=== PATIENT | female | born 1955 | race Caucasian/White ===

== ENCOUNTER → 2020-10-04 11:22 | Outpatient (BNVA) | payer OTHER, SELFPAY | PROVIDERS: PCP Internal Medicine; Visit Provider Nurse Practitioner | DX: K22.70 Barrett's esophagus without dysplasia (principal); K21.00 Gastro-esophageal reflux disease with esophagitis, without bleeding; Z80.0 Family history of malignant neoplasm of digestive organs; Z79.899 Other long term (current) drug therapy | CPT/HCPCS: Q3014 ==

== ENCOUNTER 2020-10-06 07:45 | Outpatient (REF) | payer OTHER, SELFPAY ==
[2020-10-06 11:20] LABS: Hematocrit 37.4 % (37-47); Hemoglobin 11.5 g/dl (12.0-16.0); Mean Corpuscular HGB Conc 30.7 g/dl (31.0-35.0); Mean Corpuscular Hemoglobin 27.6 pg (27.0-33.0); Mean Corpuscular Volume 89.7 fL (80-98); Mean Platelet Volume 10.4 fL (9.4-12.3); Platelet Count 273 X10*3/uL (160-400); Red Blood Count 4.17 X10*6/uL (4.20-5.50); Red Cell Distribution Width 12.8 % (11.0-16.0)
[2020-10-06 11:33] LABS: Glucose Urine UA NEG (NEG); Leukocyte Esterase Urine NEG (NEG); Nitrite Urine NEG (NEG); PH 7.5 (5.0-8.0); Specific Gravity - Urine 1.015 (1.005-1.025); Urine Blood NEG (NEG); Urine Ketones NEG (NEG); Urine Protein NEG (NEG-TRACE)
[2020-10-06 11:41] LABS: Appearance Urine CLEAR; Color Urine YELLOW
[2020-10-06 11:57] LABS: Alanine Aminotransferase 15 U/L (0-31); Albumin Level 4.3 g/dL (3.5-5.0); Alkaline Phosphatase 88 U/L (39-117); Anion Gap 14 (12-20); Aspartate Amino Transferase 14 U/L (5-31); Bilirubin Total 0.2 mg/dL (0.0-1.0); Blood Urea Nitrogen 16 mg/dL (9-16); Calcium 8.8 mg/dL (8.4-10.2); Carbon Dioxide 28 mmol/L (22-29); Chloride 105 mmol/L (96-108); Cholesterol 187 mg/dL; Estimated Glomerular Filt Rate > 60; Glucose Fasting 83 mg/dL (60-99); HDL Cholesterol 69 mg/dL; LDL Cholesterol Calculated 104 mg/dl; Potassium 3.9 mmol/L (3.3-5.1); Sodium 143 mmol/L (135-145); Total Protein 6.6 g/dL (6.5-8.0); Triglycerides 70 mg/dL
== END 2020-10-06 07:46 | disposition home or self-care (01) ==
LOC: HO.HMGCLDS 07:45
PROVIDERS: PCP Internal Medicine; Visit Provider Internal Medicine
DX: E78.5 Hyperlipidemia, unspecified (principal); I10 Essential (primary) hypertension; K22.70 Barrett's esophagus without dysplasia
CPT/HCPCS: 36415; 80053; 80061; 81003; 84443; 85027

== ENCOUNTER → 2021-04-24 09:18 | Outpatient (BNVA) | payer OTHER, SELFPAY | PROVIDERS: PCP Internal Medicine; Visit Provider Nurse Practitioner ==

== ENCOUNTER 2021-05-22 08:24 | Day surgery (SDC) | payer OTHER, SELFPAY ==
[2021-05-17 15:44] VITALS: BMI 28.3
--- NOTE | 2021-05-21 12:26 | HO.ANESPROP2 ---
Documented by User: Anna Bowers NP 05/28/21 14:35 HPI - Anesthesia Eval Consult details Narrative: 65yo F for Upper Endoscopy PMFSH Active Problems Active Problems: All Active Problems (Updated 05/17/21 @ 15:42 by Leslie Cr, RN) Family history of colon cancer in father (Acute) GERD with esophagitis (Acute) Bleeding hemorrhoids (Acute) Annual physical exam (Acute) Hyperlipidemia (Acute) Lung nodule, multiple (Acute) Reich's esophagus (Acute) HTN (hypertension) (Acute) Past Medical History Medical History Annual physical exam Anxiety Reich's esophagus Constipation Depression Hemorrhoids Hiatal hernia HTN (hypertension) Hyperlipidemia Lung nodule, multiple Family History Family History Father Colon cancer Mother Colon cancer Surgical History Surgical History H/O colonoscopy History of esophagogastroduodenoscopy (EGD) Social History Social History (Updated 05/17/21 @ 15:42 by Leslie Cr, RN) Housing: House Alcohol intake: never Patient Tobacco Use Status: Former Tobacco user Quit Date: 2015 e-Cigarette/Vaping Use: Never Used Current occupational status: employed Meds Allergies Allergy/AdvReac Type Severity Reaction Status Date / Time No Known Allergies Allergy Verified 05/22/21 08:51 [No Known Allergies*] Home Medications Medication Instructions Recorded Confirmed Last Taken Type olmesartan 5 mg tablet 5 mg PO BEDTIME 05/17/21 05/17/21 Unknown History pravastatin 80 mg tablet 80 mg PO BEDTIME 05/17/21 05/17/21 Unknown History Exam Exam Date and Time: May 21, 2021 1226 Height,Weight and Vital Signs: Height 4 ft 11 in Weight 63.503 kg Assessment and Plan Assessment Anesthesia Assessment: Chart Reviewed Documented by User: Silvia Smart MD 05/22/21 08:31 [facility] Past Medical History Medical History Annual physical exam Anxiety Recih's esophagus Constipation Depression Hemorrhoids Hiatal hernia HTN (hypertension) Hyperlipidemia Lung nodule, multiple Functional capacity: independent ambulation Patient : No Family History Family History Father Colon cancer Mother Colon cancer Surgical History Surgical History H/O colonoscopy History of esophagogastroduodenoscopy (EGD) Social History Social History (Updated 05/17/21 @ 15:42 by Leslie Cr, POOJA) Housing: House Alcohol intake: never Patient Tobacco Use Status: Former Tobacco user Quit Date: 2015 e-Cigarette/Vaping Use: Never Used Current occupational status: employed Meds Allergies Allergy/AdvReac Type Severity Reaction Status Date / Time No Known Allergies Allergy Verified 05/22/21 08:51 [No Known Allergies*] Home Medications Medication Instructions Recorded Confirmed Last Taken Type olmesartan 5 mg tablet 5 mg PO BEDTIME 05/17/21 05/17/21 Unknown History pravastatin 80 mg tablet 80 mg PO BEDTIME 05/17/21 05/17/21 Unknown History
[2021-05-22 08:52] VITALS: BP 136/63; PULSE 59; RESP 18; TEMP 36.5; O2SAT 98
[2021-05-22] MEDS: Lactated Ringers 1,000 ML 100 ML IVCONT (09:03)
--- NOTE | 2021-05-22 09:42 | MHC.SHP ---
Pre-Procedural Eval Section A Date of Service: 05/22/21 Section B Chief Complaint: Reich's esophagus Details of Present Illness: fh of cRC Relevant Family History (Specify if Yes): Yes Relevant Social History: None (ex smoker) Present Medications: see Short Stay Collaborative assessment Medical History: Significant History (Anxiety Reich's esophagus Constipation Depression Hemorrhoids Hiatal hernia HTN (hypertension) Hyperlipidemia Lung nodule, multiple) History of Previous Operations: Relevant previous surgery/procedure and date(s) (H/O colonoscopy History of esophagogastroduodenoscopy (EGD)) Allergies: Allergies Allergy/AdvReac Type Severity Reaction Status Date / Time No Known Allergies Allergy Verified 05/22/21 08:51 [No Known Allergies*] Review of Systems Sugical H&P ROS: Negative: Constitution, Cardiovascular, Respiratory, Neurological, Psychiatric, Hem-Onc, Allergic/Immunologic, Gastrointestinal, Genitourinary, Musculoskeletal, Integumentary, Endocrine and Eyes/Ears/Nose/Throat Exam Surgical H&P Exam: Normal: HEENT, Normal: Heart, Normal: Lungs, Normal: Extremities, Normal: Abdomen, Normal: Skin and Normal: Neurological Plan Diagnosis/Plan: Unchanged I have reviewed the history and physical and performed a pertinent physical examination on my patient. No changes have occurred unless specified.
--- NOTE | 2021-05-22 09:44 | P.BOP_ITS ---
Brief Operative Note Date of Service: 05/22/21 Pre-op diagnosis: hx of barretts Post-op diagnosis: same Procedure: see op note Surgeon: Antonio Graff MD Anesthesia: MAC Was an Claims Administrator used for this Procedure?: No Estimated blood loss (mL): 0 Condition: stable Disposition: PACU
--- NOTE | 2021-05-22 09:45 | W.PM.OPN ---
Operative Note Operative Note Date of Service: 05/22/21 Narrative: Procedure Description: EGD FLEXIBLE TRANSORAL UPPER GASTROINTESTINAL ENDOSCOPY UPPER ENDOSCOPY Consent: Indications for the procedure and potential complications of bleeding, perforation, reaction to medications and missed diagnosis were discussed with the patient and informed consent was obtained. Instrument: Olympus GIF H 190 J mid size upper endoscope Monitoring: Vital signs and clinical assessment, continuous EKG monitoring, Pulse oximetry, Carbon Dioxide monitoring and blood pressure monitoring were done throughout the procedure. Procedure: The patient was placed in the left lateral decubitis position and pre-procedure medications were administered and a bite block was placed. The endoscope was inserted into the mouth and advanced under direct vision to the third part of duodenum. A careful inspection was made as the upper endoscope was withdrawn including a retroflexed examination of the proximal stomach; Findings and interventions are described below. Findings: Larynx:normal Esophagus: GE junction at 36 cm, diaphragm hiatus at 36 cm, irregular Z line with few islands of salmon pink tissue, bx taken and WATS brushings taken Stomach: Several fundic gland polyps seen. Grade 2 flap valve on retroflexed examination of the cardia. Duodenum: Normal bulb and descending duodenum, Intervention: Biopsies as noted above, brushings Impression/Findings: fundic gland polyps suspected barretts esophagus, short segment PLAN: await results f/u EGD length will depend on results of brushings and bx--if barretts without dysplasia then 3-5 yrs, if normal tissue and no barretts seen on WATS then may not need further EGD
--- NOTE | 2021-05-22 10:18 | HO.ANESPROP2 ---
[facility] Active Problems Active Problems: All Active Problems (Updated 05/17/21 @ 15:42 by Leslie Cr, RN) Family history of colon cancer in father (Acute) GERD with esophagitis (Acute) Bleeding hemorrhoids (Acute) Annual physical exam (Acute) Hyperlipidemia (Acute) Lung nodule, multiple (Acute) Reich's esophagus (Acute) HTN (hypertension) (Acute) Past Medical History Medical History Annual physical exam Anxiety Reich's esophagus Constipation Depression Hemorrhoids Hiatal hernia HTN (hypertension) Hyperlipidemia Lung nodule, multiple Functional capacity: independent ambulation Family History Family History Father Colon cancer Mother Colon cancer Family history of problems with anesthesia: No Surgical History Surgical History H/O colonoscopy History of esophagogastroduodenoscopy (EGD) History of Problems with Anesthesia: No Social History Social History (Updated 05/17/21 @ 15:42 by Leslie Cr, POOJA) Housing: House Alcohol intake: never Patient Tobacco Use Status: Former Tobacco user Quit Date: 2015 e-Cigarette/Vaping Use: Never Used Are you DNR?: No Advance Directives: No Advance Directives Information Provided: Yes Advance Directives on File: No Patient : No Current occupational status: employed Meds Allergies Allergy/AdvReac Type Severity Reaction Status Date / Time No Known Allergies Allergy Verified 05/22/21 08:51 [No Known Allergies*] Active Medications: Current Medications Lactated Ringer's (Lr) 1,000 mls @ 100 mls/hr IVCONT .Q10H CAROLYN Last Admin: 05/22/21 09:03 Dose: 100 mls/hr Documented by: Home Medications Medication Instructions Recorded Confirmed Last Taken Type olmesartan 5 mg tablet 5 mg PO BEDTIME 05/17/21 05/17/21 Unknown History pravastatin 80 mg tablet 80 mg PO BEDTIME 05/17/21 05/17/21 Unknown History Exam Exam Date and Time: May 22, 2021 1018 Height,Weight and Vital Signs: Height 4 ft 11 in Weight 63.503 kg Last Vital Signs Temp 97.7 F 05/22/21 08:52 Pulse 59 05/22/21 08:52 Resp 18 05/22/21 08:52 BP 136/63 05/22/21 08:52 Pulse Ox 98 05/22/21 08:52 Airway Heart: RRR Lungs: CTA Assessment and Plan Assessment Anesthesia Assessment: Anesthesia Plan Discussed Final Anesthetic Review Family History of Problems with Anesthesia: No History of Problems with Anesthesia: No NPO: Yes ASA Class: II Final Preanesthetic Review: No Changes in Pt Med Stat Patient Risk: Low Procedure Risk: Low Anesthetic Plan Anesthetic Plan: GA and Neuraxial Block: Disposition: Standard PACU
[2021-05-22 10:19] VITALS: BP 121/51; PULSE 68; RESP 16; TEMP 36.4; O2SAT 100
[2021-05-22 10:34] VITALS: BP 125/65; PULSE 61; RESP 16; TEMP 36.4; O2SAT 98
--- NOTE | 2021-05-22 14:43 | HO.POSTANES ---
Post Anesthesia Evaluation Post Anesthesia Evaluation Vital Signs: Vital Signs Temp Pulse Resp BP Pulse Ox 05/22/21 10:34 97.5 F 61 16 125/65 98 05/22/21 10:19 97.5 F 68 16 121/51 L 100 05/22/21 08:52 97.7 F 59 18 136/63 98 Anesthesia: Monitored Mental Status: Awake Pain Control: Satisfactory Nausea/Vomiting: None Hydration: Adequate
== END 2021-05-22 11:31 | disposition home or self-care (01) ==
PROVIDERS: PCP Internal Medicine; Visit Provider Internal Medicine Gastroenterology
PROC: 0DJ08ZZ Inspection of Upper Intestinal Tract, Via Natural or Artificial Opening Endoscopic (ICD-10-PCS; CPT 43235; principal; 2021-05-22 09:40)
DX: K22.70 Barrett's esophagus without dysplasia (principal); K31.7 Polyp of stomach and duodenum; K21.00 Gastro-esophageal reflux disease with esophagitis, without bleeding; K44.9 Diaphragmatic hernia without obstruction or gangrene; I10 Essential (primary) hypertension; E78.5 Hyperlipidemia, unspecified; R91.8 Other nonspecific abnormal finding of lung field; F32.9 Major depressive disorder, single episode, unspecified; Z80.0 Family history of malignant neoplasm of digestive organs; Z79.899 Other long term (current) drug therapy; Z87.891 Personal history of nicotine dependence
CPT/HCPCS: 43239; 88305

== ENCOUNTER → 2021-06-15 15:48 | Outpatient (BNVA) | payer OTHER, SELFPAY | PROVIDERS: PCP Internal Medicine; Referring Provider Internal Medicine; Visit Provider Nurse Practitioner ==

== ENCOUNTER 2021-09-04 07:18 | Outpatient (REF) | payer OTHER, SELFPAY ==
--- NOTE | ~2021-09-04 | CT_ITS ---
EXAMINATION: CT CHEST SCREENING CLINICAL INFORMATION: Former smoker. Unknown smoking pack year history COMPARISON: Previous chest CT February 2020 TECHNIQUE: Multidetector volumetric CT imaging of the chest is performed without contrast using low dose technique. Additional 2D coronal and sagittal reformatted images and axial 3D maximum intensity projection (MIP) images are generated on the CT workstation. This CT examination was performed using dose optimization techniques as appropriate, variously including the following: *Automated exposure control *Adjustment of mA and/or kV according to patient size (this includes techniques or standardized protocols for targeted exams where dose is matched to indication/reason for exam; i.e. extremities or head) *Use of iterative reconstruction technique DLP: 31 mGy-cm FINDINGS: LUNGS: There is mild biapical pleural and parenchymal scarring that is stable. The small pulmonary nodules are stable. Largest pulmonary nodule are 3 mm peripheral left upper lobe nodules axial image 85 series 5 and 105 series 5. There is chronic lateral peripheral or subpleural scarring or subsegmental atelectasis in the right middle and right lower lobes axial image 242 and 266 series 5 that is stable. MEDIASTINUM: There is mild coronary artery calcification and calcification of the thoracic aorta. The mediastinum is otherwise normal. PLEURA: There is no pleural effusion. No pleural mass or thickening. AXILLA: No lymphadenopathy. UPPER ABDOMEN: Unremarkable OSSEOUS STRUCTURES: There are degenerative changes of the spine. CT/CT lung screening IMPRESSION: Stable biapical, right middle and right lower lobe pleural and parenchymal scarring. Stable small pulmonary nodules or micronodules. Mild coronary artery calcification. ASSESSMENT: Lung-RADS category 2: Benign RECOMMENDATION: Annual low-dose chest CT follow-up recommended.
== END 2021-09-04 07:19 | disposition home or self-care (01) ==
LOC: HO.CT 07:18
PROVIDERS: PCP Internal Medicine; Visit Provider Physician Assistant Medical
DX: Z12.2 Encounter for screening for malignant neoplasm of respiratory organs (principal); Z87.891 Personal history of nicotine dependence
CPT/HCPCS: 71271

== ENCOUNTER → 2022-02-12 10:50 | Outpatient (BNVA) | payer MEDICARE, SELFPAY | PROVIDERS: PCP Internal Medicine; Referring Provider Internal Medicine; Visit Provider Nurse Practitioner | DX: K21.00 Gastro-esophageal reflux disease with esophagitis, without bleeding (principal); K22.70 Barrett's esophagus without dysplasia; R19.7 Diarrhea, unspecified; R10.10 Upper abdominal pain, unspecified | CPT/HCPCS: 99212 ==

== ENCOUNTER 2022-04-02 08:53 | Outpatient (REF) | payer MEDICARE, SELFPAY ==
--- NOTE | ~2022-04-02 | US_ITS ---
EXAMINATION: US ABDOMEN COMPLETE CLINICAL INFORMATION: Upper abdominal pain. COMPARISON: US abdomen 04/28/2014. TECHNIQUE: Real-time imaging of the abdominal viscera. FINDINGS: PANCREAS: Normal. ABDOMINAL AORTA: The proximal, mid, and distal segments are normal in caliber. INFERIOR VENA CAVA: Visualized portions are normal. LIVER: Normal. The liver is normal in size. The liver contour is normal. Parenchymal echogenicity is normal. No focal hepatic lesion. There is no intrahepatic biliary duct dilatation seen. GALLBLADDER: Normal. The gallbladder is physiologically distended without evidence of stones, sludge, polyps, wall thickening or pericholecystic fluid. COMMON BILE DUCT: Normal in caliber measuring 0.3 cm in diameter. RIGHT KIDNEY: There is mild pelvic fullness. No hydronephrosis. No renal calculi or focal parenchymal lesions. The kidney measures 11.1 cm in maximum dimension. LEFT KIDNEY: No hydronephrosis or focal parenchymal lesions. The kidney measures 10.3 cm in maximum dimension. There is a nonobstructive echogenic stone midpole measuring 0.2 x 0.4 x 0.4 cm. SPLEEN: Normal. The spleen measures 8.9 cm in maximum dimension. FREE FLUID: None. US/US abdomen complete IMPRESSION: There is mild pelvic fullness right kidney. Nonobstructive echogenic stone midpole measuring 0.2 x 0.4 x 0.4 cm.
== END 2022-04-02 08:54 | disposition home or self-care (01) ==
LOC: HO.US 08:53
PROVIDERS: Visit Provider Nurse Practitioner
DX: R10.10 Upper abdominal pain, unspecified (principal); R19.7 Diarrhea, unspecified
CPT/HCPCS: 76700

== ENCOUNTER 2022-04-08 06:20 | Outpatient (REF) | payer MEDICARE, SELFPAY ==
[2022-04-08 11:40] LABS: Hematocrit 33.6 % (37.0-47.0); Hemoglobin 10.6 g/dl (12.0-16.0); Mean Corpuscular HGB Conc 31.5 g/dl (31.0-35.0); Mean Corpuscular Hemoglobin 28.4 pg (27.0-33.0); Mean Corpuscular Volume 90.1 fL (80.0-98.0); Mean Platelet Volume 10.7 fL (9.4-12.3); Platelet Count 256 X10*3/uL (160-400); Red Blood Count 3.73 X10*6/uL (4.20-5.50); Red Cell Distribution Width 12.5 % (11.0-16.0); White Blood Count 7.1 X10*3/uL (4.8-10.8)
[2022-04-08 12:03] LABS: Alanine Aminotransferase 22 U/L (0-31); Albumin Level 4.1 g/dL (3.5-5.0); Alkaline Phosphatase 75 U/L (39-117); Anion Gap 13 (12-20); Aspartate Amino Transferase 15 U/L (5-31); Bilirubin Total 0.4 mg/dL (0.0-1.0); Blood Urea Nitrogen 13 mg/dL (9-16); Calcium 8.8 mg/dL (8.4-10.2); Carbon Dioxide 30 mmol/L (22-29); Chloride 104 mmol/L (96-108); Cholesterol 153 mg/dL; Estimated Glomerular Filt Rate > 60; Glucose Fasting 93 mg/dL (60-99); HDL Cholesterol 61 mg/dL; LDL Cholesterol Calculated 83 mg/dl; Potassium 3.2 mmol/L (3.3-5.1); Sodium 144 mmol/L (135-145); Total Protein 6.4 g/dL (6.5-8.0); Triglycerides 48 mg/dL
== END 2022-04-08 06:21 | disposition home or self-care (01) ==
LOC: HO.HMGCLDS 06:20
PROVIDERS: Absent Provider Nurse Practitioner; PCP Internal Medicine; Visit Provider Internal Medicine
DX: Z00.00 Encounter for general adult medical examination without abnormal findings (principal); I10 Essential (primary) hypertension; E78.5 Hyperlipidemia, unspecified
CPT/HCPCS: 36415; 80053; 80061; 85027

== ENCOUNTER 2022-04-09 09:40 | Outpatient (REF) | payer MEDICARE, SELFPAY ==
[2022-04-15 20:47] LABS: Pancreatic Elastase-1 >500 mcg/g
== END 2022-04-09 09:41 | disposition home or self-care (01) ==
LOC: HO.HMGCLDS 09:40
PROVIDERS: PCP Internal Medicine; Visit Provider Nurse Practitioner
DX: R10.10 Upper abdominal pain, unspecified (principal); K58.0 Irritable bowel syndrome with diarrhea; K21.00 Gastro-esophageal reflux disease with esophagitis, without bleeding; R14.0 Abdominal distension (gaseous)
CPT/HCPCS: 82656; 99212

== ENCOUNTER 2022-04-29 09:26 | Outpatient (REF) | payer MEDICARE, SELFPAY ==
--- NOTE | ~2022-04-29 | MM_ITS ---
EXAMINATION: MM SCREENING DIGITAL BREAST TOMOSYNTHESIS, BILATERAL CLINICAL INFORMATION: Screening. Asymptomatic. The lifetime risk of breast cancer based on the Tyrer-Cuzick Model is 4%. COMPARISON: Mammography: 04/02/2019, 02/19/2018, 02/04/2018 TECHNIQUE: Digital breast tomosynthesis is performed in both the craniocaudal and mediolateral oblique views along with computer-aided detection (CAD). Synthesized 2D images are generated from the tomosynthesis. FINDINGS: The breasts are heterogeneously dense, which may obscure small masses (ACR BI-RADS breast composition Category c). There are no significant masses, abnormal calcifications, or other abnormalities. Parenchymal pattern is similar to prior studies. Breast tissue composition borders on extremely dense. There is no developing density or architectural abnormality. The axilla and skin contours are unremarkable. No significant changes. MM/MM tomosynthesis screening BI IMPRESSION: No mammographic evidence of malignancy. ASSESSMENT: BI-RADS 1: Negative RECOMMENDATION: Routine annual mammography screening. This patient's information was entered into a reminder system with a target due date for their next mammogram.
[2022-04-29 12:10] LABS: Anion Gap 16 (12-20); Blood Urea Nitrogen 16 mg/dL (9-16); Calcium 9.1 mg/dL (8.4-10.2); Carbon Dioxide 27 mmol/L (22-29); Chloride 104 mmol/L (96-108); Estimated Glomerular Filt Rate > 60; Glucose Random 89 mg/dL (60-115); Magnesium 1.9 mg/dL (1.6-2.6); Sodium 143 mmol/L (135-145)
== END 2022-04-29 09:27 | disposition home or self-care (01) ==
LOC: HO.MAMMO 09:26
PROVIDERS: PCP Internal Medicine; Visit Provider Internal Medicine
DX: E78.5 Hyperlipidemia, unspecified (principal); E87.6 Hypokalemia; I10 Essential (primary) hypertension; Z12.31 Encounter for screening mammogram for malignant neoplasm of breast
CPT/HCPCS: 36415; 77063; 77067; 80048; 83735

== ENCOUNTER 2022-05-14 12:56 | Outpatient (REF) | payer MEDICARE, SELFPAY ==
[2022-05-14 14:31] LABS: Anion Gap 13 (12-20); Blood Urea Nitrogen 17 mg/dL (9-16); Calcium 9.2 mg/dL (8.4-10.2); Carbon Dioxide 30 mmol/L (22-29); Chloride 104 mmol/L (96-108); Estimated Glomerular Filt Rate > 60; Glucose Random 84 mg/dL (60-115); Potassium 4.2 mmol/L (3.3-5.1); Sodium 143 mmol/L (135-145)
== END 2022-05-14 12:57 | disposition home or self-care (01) ==
LOC: HO.HMGCLDS 12:56
PROVIDERS: PCP Internal Medicine; Visit Provider Internal Medicine
DX: E87.6 Hypokalemia (principal)
CPT/HCPCS: 36415; 80048

== ENCOUNTER 2022-05-21 09:10 | Outpatient (REF) | payer MEDICARE, SELFPAY ==
[2022-05-21 11:19] LABS: TSH reflex Free T4 1.91 uIU/mL (0.32-4.0)
--- NOTE | 2022-05-21 12:21 | ECG_ITS ---
Test Reason : CHEST PAIN Blood Pressure : / mmHG Vent. Rate : 071 BPM Atrial Rate : 071 BPM P-R Int : 138 ms QRS Dur : 084 ms QT Int : 392 ms P-R-T Axes : 061 059 052 degrees QTc Int : 425 ms Normal sinus rhythm Low voltage QRS ST depression in Inferior leads Abnormal ECG When compared with ECG of 06-AUG-2013 11:46, Heart rate has increased ST now depressed in Inferior leads Referred By: Joya Asif Electronically Signed By:ARELIS SCHWARTZ MD
== END 2022-05-21 09:11 | disposition home or self-care (01) ==
LOC: HO.LAB 09:10
PROVIDERS: PCP Internal Medicine; Visit Provider Nurse Practitioner
DX: R14.0 Abdominal distension (gaseous) (principal); K58.0 Irritable bowel syndrome with diarrhea; K21.00 Gastro-esophageal reflux disease with esophagitis, without bleeding; K22.70 Barrett's esophagus without dysplasia; R06.02 Shortness of breath; I10 Essential (primary) hypertension
CPT/HCPCS: 36415; 84443; 86003; 93005; 99212

== ENCOUNTER 2022-06-03 09:09 | Outpatient (REF) | payer MEDICARE, SELFPAY ==
[2022-06-03 12:05] LABS: Alanine Aminotransferase 18 U/L (0-31); Albumin Level 4.3 g/dL (3.5-5.0); Alkaline Phosphatase 64 U/L (39-117); Anion Gap 11 (12-20); Aspartate Amino Transferase 14 U/L (5-31); Bilirubin Total 0.5 mg/dL (0.0-1.0); Blood Urea Nitrogen 12 mg/dL (9-16); Calcium 9.4 mg/dL (8.4-10.2); Carbon Dioxide 31 mmol/L (22-29); Chloride 105 mmol/L (96-108); Estimated Glomerular Filt Rate > 60; Glucose Random 84 mg/dL (60-115); Magnesium 1.9 mg/dL (1.6-2.6); Potassium 4.6 mmol/L (3.3-5.1); Sodium 142 mmol/L (135-145); Total Protein 6.8 g/dL (6.5-8.0)
== END 2022-06-03 09:10 | disposition home or self-care (01) ==
LOC: HO.HMGCLDS 09:09
PROVIDERS: PCP Internal Medicine; Visit Provider Internal Medicine
DX: E87.6 Hypokalemia (principal)
CPT/HCPCS: 36415; 80053; 83735

== ENCOUNTER 2022-06-18 14:17 | Outpatient (REF) | payer MEDICARE, SELFPAY ==
--- NOTE | ~2022-06-18 | MM_ITS ---
EXAMINATION: BONE DENSITOMETRY CLINICAL INDICATION: Menopause. COMPARISON: None (current study represents initial baseline exam). TECHNIQUE: Using a Swoop DXA System (software version: 13.1) manufactured by [employer], dual-energy x-ray absorptiometry was performed of the lumbar spine and left hip. The images are of good technical quality. Summary results are attached. FINDINGS: AP SPINE L1-L4: BMD 0.753 g/cm2, Z-score -1.5, T-score -3.6, osteoporosis. LEFT FEMUR, NECK: BMD 0.761 g/cm2, Z-score -0.2, T-score -2.0, osteopenia. LEFT FEMUR, TOTAL: BMD 0.834 g/cm2, Z-score 0.2, T-score -1.4, osteopenia. IDENTIFIED RISK FACTORS: Menopause, height loss, low calcium intake, right oophorectomy. HISTORY OF FRACTURE: None listed. MEDICATIONS: Multivitamin, vitamin D. MM/XR DEXA axial skeleton IMPRESSION: 1. DIAGNOSIS: Osteoporosis based on the lowest T-score value of -3.6 in the lumbar spine applying World Health Organization criteria. 2. 10-YEAR FRACTURE RISK PREDICTION, FRAX: According to the guidelines, FRAX calculation should only be performed on patients in the osteopenia bone density category. Therefore, FRAX was not performed on this patient. 3. Treatment Recommendations: NOF guidelines recommend consideration for treatment in postmenopausal women and men age 50 and older presenting with the following: -A hip or vertebral (clinical or morphometric) fracture. -T-score less than or equal to -2.5 at the femoral neck or spine after appropriate evaluation to exclude secondary causes. -Low bone mass at the hip or spine and a 10-year fracture probability by FRAX of greater than or equal to 3% for hip fracture or greater than or equal to 20% for major osteoporotic fracture based on the [place] adapted WHO algorithm. 4. Other Recommendations: All treatment decisions require clinical judgment and consideration of individual patient factors, including patient preferences, comorbidities, previous drug use, risk factors not captured in the FRAX model (e.g. frailty, falls, vitamin D deficiency, increased bone turnover, interval significant decline in bone density) and possible under or overestimation of fracture risk by FRAX. Additional medical evaluation for secondary cause of low bone mineral density may be appropriate. FUTURE SCAN RECOMMENDATION: People with diagnosed cases of osteoporosis or at high risk for fracture should have regular bone mineral density tests. For patients eligible for Medicare, routine testing is allowed once every 2 years. The testing frequency can be increased to one year for patients who have rapidly progressing disease, those who are receiving or discontinuing medical therapy to restore bone mass, or have additional risk factors.
== END 2022-06-18 14:18 | disposition home or self-care (01) ==
LOC: HO.MAMMO 14:17
PROVIDERS: PCP Internal Medicine; Visit Provider Internal Medicine
DX: Z13.820 Encounter for screening for osteoporosis (principal); Z78.0 Asymptomatic menopausal state
CPT/HCPCS: 77080

== ENCOUNTER → 2022-07-11 11:29 | Outpatient (BNVA) | payer MEDICARE, SELFPAY | PROVIDERS: PCP Internal Medicine; Visit Provider Nurse Practitioner | DX: Z13.89 Encounter for screening for other disorder (principal) ==

== ENCOUNTER → 2022-08-27 09:27 | Outpatient (BNVA) | payer MEDICARE, SELFPAY | PROVIDERS: PCP Internal Medicine; Visit Provider Internal Medicine | DX: Z13.89 Encounter for screening for other disorder (principal) ==

== ENCOUNTER 2022-08-27 12:36 | Outpatient (REF) | payer MEDICARE, SELFPAY ==
--- NOTE | 2022-08-27 15:21 | PFT_ITS ---
INDICATION: Cough. SPIROMETRY: FEV1 to FVC of 87% with an FEV1 of 2.17 L, which is 111% predicted and an FVC of 2.48 L, which is 97% predicted. No significant response to bronchodilators noted. Maximum voluntary ventilation is 92% predicted. LUNG VOLUMES: Total lung capacity 100% predicted. DIFFUSION CAPACITY: DLCO of 94% predicted. COMPARISONS: PFTs in 2015. INTERPRETATION: No obstructive nor restrictive ventilatory defects have been identified. No significant response to bronchodilators noted. Normal maximum voluntary ventilation. Lung volumes are within normal limits and diffusion capacity also within normal limits. When compared to 2015, no change in her FVC, no significant change in the FEV1, no significant change in total lung capacity, and trend of decrease in the diffusion capacity. Clinical correlation warranted. MD SINAI Jennings/MODL / [id number]
== END 2022-08-27 12:37 | disposition home or self-care (01) ==
LOC: HO.RESP 12:36
PROVIDERS: PCP Internal Medicine; Visit Provider Internal Medicine
DX: R06.02 Shortness of breath (principal)
CPT/HCPCS: 94060; 94727; 94729; 99202

== ENCOUNTER 2022-09-03 10:35 | Outpatient (REF) | payer MEDICARE, SELFPAY ==
[2022-09-03 14:16] LABS: MANUAL DIFF FLAG NO
[2022-09-03 14:23] LABS: Basophils Percent Auto 0.6 % (0-2); Eosinophils Absolute Auto 0.1 X10*3/uL (0.0-0.4); Eosinophils Percent Auto 2.2 % (0-4); Hematocrit 36.6 % (37.0-47.0); Hemoglobin 11.6 g/dl (12.0-16.0); Imm Gran Abs Auto 0.01 X10*3/uL (0.00-0.03); Imm Gran Pct Auto 0.2 % (0.0-0.4); Lymphocytes Absolute Auto 2.6 X10*3/uL (1.2-4.9); Mean Corpuscular HGB Conc 31.7 g/dl (31.0-35.0); Mean Corpuscular Hemoglobin 28.6 pg (27.0-33.0); Mean Corpuscular Volume 90.4 fL (80.0-98.0); Mean Platelet Volume 10.1 fL (9.4-12.3); Monocytes Absolute Auto 0.3 X10*3/uL (0.1-1.2); Monocytes Percent Auto 5.9 % (2-11); Neutrophils Absolute Auto 2.3 x10*3/uL (2.0-8.3); Neutrophils Percent Auto 43.1 % (45-73); Platelet Count 276 X10*3/uL (160-400); Red Blood Count 4.05 X10*6/uL (4.20-5.50); Red Cell Distribution Width 12.6 % (11.0-16.0); White Blood Count 5.4 X10*3/uL (4.8-10.8)
[2022-09-03 14:43] LABS: Anion Gap 11 (12-20); Blood Urea Nitrogen 16 mg/dL (9-16); Carbon Dioxide 29 mmol/L (22-29); Chloride 105 mmol/L (96-108); Estimated Glomerular Filt Rate > 60; Glucose Random 88 mg/dL (60-115); Iron 61 mcg/dL (30-160); Magnesium 1.8 mg/dL (1.6-2.6); Percent Iron Saturation 25 % (15-50); Potassium 4.2 mmol/L (3.3-5.1); Sodium 141 mmol/L (135-145); Total Iron Binding Capacity 241 mcg/dL (228-428); Unsaturated Iron Binding 180 ug/dL
== END 2022-09-03 10:36 | disposition home or self-care (01) ==
LOC: HO.HMGCLDS 10:35
PROVIDERS: PCP Internal Medicine; Visit Provider Internal Medicine
DX: D64.9 Anemia, unspecified (principal); E87.6 Hypokalemia; I10 Essential (primary) hypertension
CPT/HCPCS: 36415; 80048; 83540; 83735; 85025

== ENCOUNTER → 2022-09-24 09:48 | Outpatient (BNVA) | payer MEDICARE, SELFPAY | PROVIDERS: PCP Internal Medicine; Visit Provider Internal Medicine | DX: R06.02 Shortness of breath (principal); R91.8 Other nonspecific abnormal finding of lung field; F41.9 Anxiety disorder, unspecified | CPT/HCPCS: Q3014 ==

== ENCOUNTER → 2022-09-25 12:35 | Outpatient (BNVA) | payer MEDICARE, SELFPAY | PROVIDERS: PCP Internal Medicine; Visit Provider Nurse Practitioner | DX: K58.0 Irritable bowel syndrome with diarrhea (principal); K21.00 Gastro-esophageal reflux disease with esophagitis, without bleeding; K64.9 Unspecified hemorrhoids; K22.70 Barrett's esophagus without dysplasia; R14.0 Abdominal distension (gaseous); Z80.0 Family history of malignant neoplasm of digestive organs | CPT/HCPCS: 99212 ==

== ENCOUNTER → 2022-12-25 12:36 | Outpatient (BNVA) | payer MEDICARE, SELFPAY | PROVIDERS: PCP Internal Medicine; Visit Provider Nurse Practitioner | DX: K58.0 Irritable bowel syndrome with diarrhea (principal); K21.00 Gastro-esophageal reflux disease with esophagitis, without bleeding; R19.7 Diarrhea, unspecified; R07.0 Pain in throat | CPT/HCPCS: 99212 ==

== ENCOUNTER 2023-02-05 13:20 | Outpatient (AMB) | payer MEDICARE, SELFPAY ==
--- NOTE | 2023-02-05 13:25 | MHC.OFFVIS ---
Intake Vital Signs 02/05/23 13:34 Height 4 ft 11 in Weight 125 lb 10.616 oz BMI 25.4 Blood Pressure Location Lt brachial Position Sitting Intake Visit Reasons: 6 week fu Intake Note: Arleen presents in the office as a 6 week follow up. CC: Issues with her throat - it hurts often and she feels like it is closing on the bottom. Allergies No Known Allergies [No Known Allergies*] Allergy (Verified 02/05/23 13:34) HPI 6 week fu HPI Details AAssessment & Plan (1) Irritable bowel syndrome with diarrhea: Code(s): K58.0 - Irritable bowel syndrome with diarrhea Plan: She got a notice that her insurance will not cover creon anymore (??) Will try to do PA and see what the problem is. She has not yet run out of medication. . She continues on her omeprazole with good control of her GERD, and has been using the proctsol intermittently but not bleeding. We discussed how to use and the physiology of hemorrhoids. ROV 6 weeks. (2) Diarrhea: Code(s): R19.7 - Diarrhea, unspecified (3) GERD with esophagitis: Code(s): K21.00 - Gastro-esophageal reflux disease with esophagitis, without bleeding (4) Throat pain: Code(s): R07.0 - Pain in throat Orders: Referrals Ear/Nose/Throat Referral R07.0 - Pain in throat Medications: Refilled omeprazole 40 mg PO DAILY 30 caps 6RF K21.00 - Gastro-esophageal reflux disease with esophagitis, without bleeding, K22.70 - 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 kiwlpx-nhshdqah-uhklhxo 6,000-19,000 -30,000 unit (Creon) do not exceed 10,000 unit/kg lipase per 24 hrs 1 cap PO .tidac 90 caps 6RF K58.0 - Irritable bowel syndrome with diarrhea hydrocortisone 2.5% (Proctosol HC) 1 appl [place] BID PRN 30 grams 3RF hemorrhoids K64.9 - Unspecified hemorrhoids. ? TODAYS VISIT Her throat pain continues and at times she has dysphagia. She says its my fault, I am not eating right. She has an ENT appt next month. 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 She is currently living with her daughter and this makes it hard to control her diet. However, she has not been able to ID any types of food that are culprits. She continues on her omeprazole and has not GERD, and she continues on her CREON. Her hemorrhoids have been controlled recently. ROV 6 mos. PFSH Medical History Annual physical exam Anxiety Reich's esophagus Constipation Depression Hemorrhoids Hiatal hernia HTN (hypertension) Hyperlipidemia Lung nodule, multiple Surgical History H/O colonoscopy History of esophagogastroduodenoscopy (EGD) Family History Father Colon cancer Mother Colon cancer Social History Housing: House Alcohol intake: never Patient Tobacco Use Status: Former Tobacco user Quit Date: 2015 e-Cigarette/Vaping Use: Never Used Current occupational status: employed Cognitive needs: No Hearing needs: No Vision needs: Yes Review of Systems Const Denies fatigue, Denies fever(s), Denies night sweats, Denies poor appetite and Denies weight loss Eyes Details: glasses Reports requires corrective lenses ENT Reports Normal hearing present, Denies dental pain, Reports dysphagia, Denies hearing loss, Denies mouth pain, Denies odynophagia, Reports sore throat, Denies throat swelling, Denies tongue swelling and Reports other (Dentition adequate) Card Reports no additional complaints Resp Reports no additional complaints GI Denies abdominal pain, Denies melena, Reports bloating, Denies hematochezia, Denies constipation, Denies GI cramping, Reports dysphagia, Denies excessive flatus, Denies early satiety, Reports heartburn, Reports diarrhea, Denies nausea, Denies odynophagia, Denies vomiting and Denies hematemesis Skin/Breast Denies pruritus, Denies lesions, Denies rash and Denies jaundice Neuro Reports Normal hearing present and Denies Abnormal speech present Endo Denies fatigue Aller/Immun Denies throat swelling and Denies tongue swelling Physical Exam Vital Signs: BMI result Body Mass Index 25.4 Const General: cooperative, no acute distress, well developed and well groomed Nutritional Appearance: average body habitus and well nourished Orientation/consciousness: oriented to person, oriented to place and oriented to time Limitations: language barrier HEENT Head: Yes normocephalic and Yes atraumatic Eyes General: appearance normal, both eyes and all related structures Pupils: Equal, round and reactive pupils present Neck Neck: Yes normal visual inspection and Yes no lymphadenopathy Thyroid: Thyroid normal Resp Effort & Inspection: normal respiratory effort and able to speak in complete sentences Auscultation: clear to auscultation bilaterally Cardio Rate: regular rate Rhythm: regular rhythm Heart sounds: Normal, physiologic split S2 sound present Peripheral pulses: radial pulses present and posterior tibial pulses present GI Inspection: No distended and No Abdominal panniculus present Palpation (GI): Soft to palpation, nontender, no guarding, not rigid and No hepatosplenomegaly present Percussion: Yes normal to percussion Auscultation: normal bowel sounds Rectal Exam - Female: deferred Skin General skin exam: no rashes or lesions noted, turgor normal, skin not dry, no jaundice, No spider nevi and no striae Rashes: no rashes Nails: normal Neuro General: oriented to person, oriented to place and oriented to time Cranial nerves: Yes Equal, round and reactive pupils present and Yes Normal hearing present Speech: No Abnormal speech present Extrem General: Yes normal to inspection, No clubbing, No cyanosis and No edema Psych Appearance: grossly normal and well kempt Mental Status: mental status grossly normal Speech and movement: Normal speech and movement present Affect: normal affect Attitude: cooperative Thought process: Normal thought process present and not confabulating Thought content: Normal thought content present Insight: Fair insight present (Psych) Judgement: Fair judgement present (Psych) Assessment & Plan Assessment & Plan (1) Irritable bowel syndrome with diarrhea: Code(s): K58.0 - Irritable bowel syndrome with diarrhea Plan: Her throat pain continues and at times she has dysphagia. She says its my fault, I am not eating right. She has an ENT appt next month. 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 She is currently living with her daughter and this makes it hard to control her diet. However, she has not been able to ID any types of food that are culprits. She continues on her omeprazole and has not GERD, and she continues on her CREON. Her hemorrhoids have been controlled recently. ROV 6 mos. (2) GERD with esophagitis: Code(s): K21.00 - Gastro-esophageal reflux disease with esophagitis, without bleeding (3) Bleeding hemorrhoids: Code(s): K64.9 - Unspecified hemorrhoids (4) Reich's esophagus: Comment: Sonia finley EGD 05/2018: neg for SSBE 02/2020 EGD biopsy aeb also negative for metaplasia 05/2021 EGD no need for further surveillance endoscopies unless the patient becomes symptomatic Code(s): K22.70 - 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 Medications: Refilled omeprazole 40 mg PO DAILY 30 caps 6RF K22.70 - 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, K21.00 - Gastro-esophageal reflux disease with esophagitis, without bleeding whekwj-ehcevqbm-uwrkbmo 6,000-19,000 -30,000 unit (Creon) do not exceed 10,000 unit/kg lipase per 24 hrs 1 cap PO .tidac 90 caps 6RF K58.0 - Irritable bowel syndrome with diarrhea Coding Level of Care Code Est Pt Level 3 (09800) Diagnoses Irritable bowel syndrome with diarrhea K58.0 GERD with esophagitis K21.00 Bleeding hemorrhoids K64.9 Reich's esophagus K22.70
[2023-02-05 13:34] VITALS: BMI 25.4
== END 2023-02-05 13:48 | disposition home or self-care (01) ==
PROVIDERS: PCP Internal Medicine; Visit Provider Nurse Practitioner
DX: K58.0 Irritable bowel syndrome with diarrhea (principal); K21.00 Gastro-esophageal reflux disease with esophagitis, without bleeding; K64.9 Unspecified hemorrhoids; K22.70 Barrett's esophagus without dysplasia
CPT/HCPCS: 99213

== ENCOUNTER → 2023-02-05 13:20 | Outpatient (BNVA) | payer MEDICARE, SELFPAY | PROVIDERS: PCP Internal Medicine; Visit Provider Nurse Practitioner | DX: K58.0 Irritable bowel syndrome with diarrhea (principal); K21.00 Gastro-esophageal reflux disease with esophagitis, without bleeding; K64.9 Unspecified hemorrhoids; K22.70 Barrett's esophagus without dysplasia | CPT/HCPCS: 99212 ==

== ENCOUNTER 2023-03-04 10:03 | Outpatient (AMB) | payer MEDICARE, SELFPAY ==
--- NOTE | 2023-03-04 10:05 | A.OFFVIS_ITS ---
Intake Vital Signs 03/04/23 10:06 Height 4 ft 11 in Weight 126 lb 12.253 oz BMI 25.6 BP 132/74 Blood Pressure Location Lt brachial Position Sitting Pulse 62 Pulse Source Pulse Oximeter Pulse Oximetry (%) 100 Oxygen Delivery Method Room Air Intake Visit Reasons: dyspnea Allergies No Known Allergies [No Known Allergies*] Allergy (Verified 03/04/23 10:15) Medication List - Last Reconciled 03/04/23 by Lory Decker MD albuterol sulfate 90 mcg/actuation (Ventolin HFA) 1 inh inhalation QID PRN bupropion HCl 150 mg PO BID hydrocortisone 2.5% (Proctosol HC) 1 appl [place] BID PRN izytds-dpjmgnmz-uptwlol 6,000-19,000 -30,000 unit (Creon) 1 cap PO .tidac olmesartan 5 mg PO BEDTIME omeprazole 40 mg PO DAILY potassium chloride ER 20 mEq PO DAILY pravastatin 80 mg PO BEDTIME Do you need a note to return to daycare/school/sports/work: No HPI dyspnea HPI Details THIS 67 YEARS OLD FEMALE WHO HAS A MINIMAL DEGREE OF ASTHMA/COPD, COMES FOR FALL. FOLLOW-UP AFTER A LONG. SHE USES ALBUTEROL ONLY ONCE IN A WHILE IF SHE HAS PROLONGED COUGH OR WHEEZING. SHE IS STAYING VERY STABLE WITHOUT GETTING SHORT OF BREATH ON HER DAY-TO-DAY ACTIVITIES. SHE HAS QUIT SMOKING LONG TIME AGO AFTER SMOKING FOR ABOUT 30 YEARS. QUIT IN 2016 . 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 [facility] Medical History (Updated 03/04/23 @ 10:49 by Lory Decker MD) Annual physical exam Anxiety Reich's esophagus Constipation Depression Encounter for screening for malignant neoplasm of lung in current smoker with 30 pack year history or greater Hemorrhoids Hiatal hernia History of smoking at least 1 pack per day for at least 30 years HTN (hypertension) Hyperlipidemia Lung nodule, multiple Surgical History H/O colonoscopy History of esophagogastroduodenoscopy (EGD) Family History Father Colon cancer Mother Colon cancer Social History Housing: House Alcohol intake: never Patient Tobacco Use Status: Former Tobacco user Quit Date: 2015 e-Cigarette/Vaping Use: Never Used Current occupational status: employed Cognitive needs: No Hearing needs: No Vision needs: Yes Review of Systems Const All systems reviewed & are unremarkable except as noted in HPI and below Eyes Reports no additional complaints ENT Reports no additional complaints Card Denies chest pain at rest, Denies irregular heart rhythm, Denies leg edema and Denies dyspnea on exertion Resp Reports as per HPI, Denies cough, Denies dyspnea on exertion and Denies wheezing GI Reports heartburn (Controlled with omeprazole) and Reports other (History of pancreatic insufficiency, patient on Creon) Reports no additional complaints Musc Reports no additional complaints Skin/Breast Reports system reviewed and no additional complaints, except as documented Neuro Reports no additional complaints Psych Reports anxiety (Stress related) Endo Reports no additional complaints Spencer/Lymph Reports no additional complaints Aller/Immun Reports no additional complaints and Denies wheezing Physical Exam Vital Signs: Last Vital Signs Pulse 62 03/04/23 10:06 BP 132/74 03/04/23 10:06 Pulse Ox 100 03/04/23 10:06 Oxygen Delivery Method Room Air 03/04/23 10:06 BMI result Body Mass Index 25.6 Const General: healthy appearing, comfortable, no acute distress, alert and awake Orientation/consciousness: patient oriented x3 HEENT Head: Yes normal to inspection General nose exam: No nasal polyps present and No nasal discharge present Face and sinus: Yes sinuses nontender Mouth: oropharynx normal Throat: Yes posterior oropharynx normal Eyes General: appearance normal, both eyes and all related structures Neck Neck: Yes normal visual inspection, Yes no lymphadenopathy, Yes trachea midline and Yes no JVD Thyroid: Thyroid normal Chest Chest palpation & inspection: normal inspection of the chest, normal palpation of entire chest wall and no tenderness Resp Effort & Inspection: normal respiratory effort and no cough Auscultation: clear to auscultation bilaterally, no crackles, no rhonchi and no wheezes Cardio Palpation: normal PMI Rate: regular rate Rhythm: regular rhythm Heart sounds: no gallops and no murmurs Peripheral pulses: Peripheral pulses 2+ throughout GI Palpation (GI): Soft to palpation, Tenderness to palpation present (GI), No hepatosplenomegaly present and Palpable mass present Auscultation: normal bowel sounds Back/Spine/Pelvis Thoracic/Lumbar Spine: thoracic and lumbar spine normal to inspection Skin General skin exam: no rashes or lesions noted Neuro General: patient oriented x3 and no focal motor deficits Cranial nerves: Yes CN's II-XII intact bilaterally Extrem General: Yes normal to inspection, Yes no clubbing, cyanosis or edema and Yes no calf tenderness Psych Appearance: grossly normal and well kempt Speech and movement: Normal speech and movement present Results Reviewed Results Reviewed: SPIROMETRY NORMAL NO OBSTRUCTIVE AIRWAYS DISORDER Assessment & Plan Assessment & Plan (1) Shortness of breath: Comment: Dyspnea on exertion, very mild, patient claims it may be due to stress. ON HER PFT IN AUGUST 2022 AND SPIROMETRY TODAY, THERE IS NO EVIDENCE OF OBSTRUCTIVE AIRWAY DISORDER. DYSPNEA ON EXERTION AND SOMETIME EVEN AT REST IS MOST LIKELY RELATED TO POOR PHYSICAL CONDITIONING OF OR ANXIETY ATTACKS. PATIENT IS REASSURED AND ADVISED TO DO RELAXING DEEP BREATHING EXERCISES. ADVISED TO KEEP ALBUTEROL HFA ON HAND AND USE IT ONLY IF SHE HAS SUSTAINED SHORTNESS OF BREATH OR WHEEZING. SHE WILL BE SEEN YEARLY FOR FOLLOW-UPS. Code(s): R06.02 - Shortness of breath (2) History of smoking at least 1 pack per day for at least 30 years: Comment: SHE DOES HAVE PAST HISTORY OF SMOKING, BUT QUIT MANY. YEARS AGO SHE IS PARTICIPATING IN ANNUAL LUNG SCREENING PROGRAM Code(s): Z87.891 - Personal history of nicotine dependence (3) Anxiety: Comment: PATIENT DOES HAVE ANXIETY SYNDROME, AND MOST OF THE TIME HER INCREASED SHORTNESS OF BREATH IS RELATED TO BEING UNDER STRESS AND ANXIOUS. Code(s): F41.9 - Anxiety disorder, unspecified Coding Level of Care Code Est Pt Level 3 (57321) Diagnoses Shortness of breath R06.02 History of smoking at least 1 pack per day for at least 30 years Z87.891 Anxiety F41.9
[2023-03-04 10:06] VITALS: BP 132/74; PULSE 62; O2SAT 100; BMI 25.6
== END 2023-03-04 10:33 | disposition home or self-care (01) ==
PROVIDERS: PCP Internal Medicine; Visit Provider Internal Medicine
DX: R06.02 Shortness of breath (principal); Z87.891 Personal history of nicotine dependence; F41.9 Anxiety disorder, unspecified
CPT/HCPCS: 99213

== ENCOUNTER → 2023-03-04 10:03 | Outpatient (BNVA) | payer MEDICARE, SELFPAY | PROVIDERS: PCP Internal Medicine; Visit Provider Internal Medicine | DX: R06.02 Shortness of breath (principal); F41.9 Anxiety disorder, unspecified; Z87.891 Personal history of nicotine dependence | CPT/HCPCS: 99212 ==

== ENCOUNTER 2023-03-05 12:38 | Outpatient (AMB) | payer MEDICARE, SELFPAY ==
--- NOTE | 2023-03-05 13:16 | MHC.PC.OV ---
Vital Signs 03/05/23 13:27 Height 4 ft 11 in Weight 126 lb BMI 25.4 BP 118/74 Blood Pressure Location Lt brachial Position Sitting Pulse 71 Pulse Source Pulse Oximeter Pulse Oximetry (%) 99 Oxygen Delivery Method Room Air Intake Visit Reasons: Annual PE Intake Note: Pt is here today for PE. Allergies No Known Allergies [No Known Allergies*] Allergy (Verified 03/05/23 13:29) Medication List - Last Reconciled 03/05/23 by Aspen Navas MD albuterol sulfate 90 mcg/actuation (Ventolin HFA) 1 inh inhalation QID PRN bupropion HCl 150 mg PO BID hydrocortisone 2.5% (Proctosol HC) 1 appl [place] BID PRN jrenxv-ybjlmhea-rcxdzom 6,000-19,000 -30,000 unit (Creon) 1 cap PO .tidac olmesartan 5 mg PO BEDTIME omeprazole 40 mg PO DAILY potassium chloride ER 20 mEq PO DAILY pravastatin 80 mg PO BEDTIME zoledronic aauz-sgqwalvj-dkroz 5 mg/100 mL (Reclast) 1 ea IV ONCE Tobacco use date assessed: 03/05/23 Dental Screening Dental Screen Date: 03/05/23 Did you have a dental visit in the last 12 months?: Yes Did you have a dental problem in the last 6 months where you did not have access to dental care?: No Was dental information given to patient?: Patient has dentist HPI Annual PE HPI Details Patient presents for physical. Chronic anxiety is stable on current medications. Patient's cutting down on smoking follows up with lung cancer screening program. She follows up with GI for history of Reich's esophagus and chronic GERD. [facility] Medical History (Updated 03/05/23 @ 13:53 by Aspen Navas MD) Annual physical exam Anxiety Reich's esophagus Constipation Depression Encounter for screening for malignant neoplasm of lung in current smoker with 30 pack year history or greater Hemorrhoids Hiatal hernia History of smoking at least 1 pack per day for at least 30 years HTN (hypertension) Hyperlipidemia Lung nodule, multiple Surgical History H/O colonoscopy History of esophagogastroduodenoscopy (EGD) Family History (Updated 03/05/23 @ 13:31 by Jenn Carvajal Emani) Father Colon cancer Mother Colon cancer Social History Housing: House Alcohol intake: never Patient Tobacco Use Status: Former Tobacco user Quit Date: 2015 e-Cigarette/Vaping Use: Never Used Current occupational status: employed Cognitive needs: No Hearing needs: No Vision needs: Yes Questionnaire Thrive Questionnaire Date Thrive assessed: 09/03/22 AUDIT C Alcohol Use Questionnaire (AUDIT-C) 1. How often do you have a drink containing alcohol?: Never 3. How often do you have six or more drinks on one occasion?: Never Total Score: 0 PARAS-7 AMB Questionnaire PARAS-7 Date PARAS - 7 assessed: 09/03/22 Feeling nervous, anxious, or on edge: 0 = Not at all Not being able to stop or control worryin = Not at all Worrying too much about different things: 0 = Not at all Trouble relaxin = Not at all Being so restless that it is hard to sit still: 0 = Not at all Becoming easily annoyed or irritable: 0 = Not at all Feeling afraid as if something awful might happen: 0 = Not at all Total PARAS-7 score (0-4 normal; 5-9 mild; 10-14 moderate; 15-21 severe): 0 Source: Developed by Drs. Siva Ozuna, Keyana Lopez, Bairon Stephenson and colleagues, with an educational christofer from [employer]. Review of Systems Const All systems reviewed & are unremarkable except as noted in HPI and below Reports no additional complaints Eyes Reports no additional complaints ENT Reports no additional complaints Card Reports no additional complaints Resp Reports no additional complaints GI Reports no additional complaints Reports no additional complaints Physical exam (Primary Care) Vital Signs: Last Vital Signs Pulse 71 03/05/23 13:27 BP 118/74 03/05/23 13:27 Pulse Ox 99 03/05/23 13:27 Oxygen Delivery Method Room Air 03/05/23 13:27 BMI result Body Mass Index 25.4 Tobacco/Smoking Status: Tobacco use Status Tobacco use date assessed 03/05/23 03/05/23 13:32 Patient Tobacco Use Status Former Tobacco user 03/05/23 13:16 e-Cigarette/Vaping Use Never Used 03/05/23 13:16 Thrive Assessment: Date of Thrive Assessment Date Thrive assessed 09/03/22 03/05/23 13:16 Const General: no acute distress HENMT Head: Yes normal to inspection Mouth: Normal oral and palatal mucosa present Eyes General: appearance normal, both eyes and all related structures Neck Neck: Yes no lymphadenopathy and Yes supple Resp Effort & Inspection: normal respiratory effort Auscultation: clear to auscultation bilaterally Cardio Rhythm: regular rhythm Heart sounds: S1 normal heart sound present and S2 normal heart sound present GI Inspection: Yes normal to inspection Palpation (GI): Soft to palpation Percussion: Yes normal to percussion Auscultation: normal bowel sounds Assessment and Plan Assessment & Plan (1) Annual physical exam: Code(s): Z00.00 - Encounter for general adult medical examination without abnormal findings Plan: Well-balanced diet and regular physical activity discussed with the patient. She will have mammogram in April (2) Hyperlipidemia: Code(s): E78.5 - Hyperlipidemia, unspecified Plan: Continue statin (3) HTN (hypertension): Code(s): I10 - Essential (primary) hypertension Plan: Continue olmesartan (4) Lung nodule, multiple: Comment: CT 02/2021, ex smoker, CT stable 12/02, recheck in 1 year, patient is in lung screening program. Code(s): R91.8 - Other nonspecific abnormal finding of lung field Plan: Follow-up with the lung cancer screening program (5) Vitamin D deficiency: Code(s): E55.9 - Vitamin D deficiency, unspecified Plan: Start vitamin-D supplement and check the level (6) Osteoporosis: Comment: DEXA 07/04 T score -3.6 in L spine, patient cannot tolerate Fosamax because of Reich's esophagus and chronic GERD. Start a Reclast infusion for 2 years and repeat DEXA Code(s): M81.0 - Age-related osteoporosis without current pathological fracture Orders: Orders Comprehensive [place]. Panel Fast Today E78.5 - Hyperlipidemia, unspecified, I10 - Essential (primary) hypertension, R91.8 - Other nonspecific abnormal finding of lung field, Z00.00 - Encounter for general adult medical examination without abnormal findings Lipid Panel Today E78.5 - Hyperlipidemia, unspecified, I10 - Essential (primary) hypertension, R91.8 - Other nonspecific abnormal finding of lung field, Z00.00 - Encounter for general adult medical examination without abnormal findings TSH reflex Free T4 Today E78.5 - Hyperlipidemia, unspecified, I10 - Essential (primary) hypertension, R91.8 - Other nonspecific abnormal finding of lung field, Z00.00 - Encounter for general adult medical examination without abnormal findings Complete Blood Count Auto Diff Today E78.5 - Hyperlipidemia, unspecified, I10 - Essential (primary) hypertension, R91.8 - Other nonspecific abnormal finding of lung field, Z00.00 - Encounter for general adult medical examination without abnormal findings Vitamin D 25-OH Total Today E55.9 - Vitamin D deficiency, unspecified Medications: New zoledronic yiet-pcutruga-rnmlx 5 mg/100 mL (Reclast) 1 ea IV ONCE 100 mL 0RF zoledronic kxok-vslikxtp-obaxi 5 mg/100 mL (Reclast) 1 ea IV ONCE 100 mL 0RF Coding Level of Care Code Est Pt Prev Care >65y(42540) Diagnoses Annual physical exam Z00.00 Hyperlipidemia E78.5 HTN (hypertension) I10 Lung nodule, multiple R91.8 Vitamin D deficiency E55.9 Osteoporosis M81.0
[2023-03-05 13:27] VITALS: BP 118/74; PULSE 71; O2SAT 99; BMI 25.4
== END 2023-03-05 13:54 | disposition home or self-care (01) ==
PROVIDERS: Visit Provider Internal Medicine
DX: Z00.00 Encounter for general adult medical examination without abnormal findings (principal); I10 Essential (primary) hypertension; E55.9 Vitamin D deficiency, unspecified; E78.5 Hyperlipidemia, unspecified; R91.8 Other nonspecific abnormal finding of lung field; M81.0 Age-related osteoporosis without current pathological fracture
CPT/HCPCS: 99397

== ENCOUNTER 2023-03-11 09:54 | Outpatient (REF) | payer MEDICARE, SELFPAY ==
--- NOTE | ~2023-03-11 | FL_ITS ---
EXAMINATION: XR FLUOROSCOPY BARIUM SWALLOW WITH AIR CLINICAL INFORMATION: Dysphasia with globus sensation COMPARISON: 03/02/2014. TECHNIQUE: Standard barium swallow air contrast examination was performed during the ingestion of thick and thin barium with effervescent granules under direct fluoroscopic guidance. Numerous fluoroscopic spot images were obtained. FINDINGS: Imaging of the rubi and hypopharynx during swallow demonstrates no evidence of laryngeal penetration or aspiration. Moderate cricopharyngeal achalasia was noted. No additional abnormalities aside from mild consistent vallecular pooling which cleared upon subsequent swallows. The esophagus has normal caliber and contour, without evidence of mass, stricture, or mucosal abnormality. There was a small to moderate sized hiatus hernia, type I, at the GE junction. There was minimal gastroesophageal reflux during the examination. Mild presbyesophagus was noted. The stomach has a normal contour, with normal fold pattern and mucosal appearance. No definite mass or fold thickening. The duodenal bulb and duodenal sweep appear normal. The proximal jejunum appears normal. FLUOROSCOPY TIME: 4.9 minutes 42 spot images obtained. DOSE AREA PRODUCT: 22.670 uGy-m2 (microgray-meter squared) FL/FL barium swallow with air IMPRESSION: 1. Moderate cricopharyngeal achalasia. No laryngeal aspiration or penetration. 2. Small to moderate size sliding hiatus hernia. 3. Episodic mild to moderate gastroesophageal reflux. 4. Mild presbyesophagus. 5. Normal-appearing stomach, duodenal bulb, duodenal sweep, and proximal jejunum.
== END 2023-03-11 09:55 | disposition home or self-care (01) ==
LOC: HO.XRAY 09:54
PROVIDERS: PCP Internal Medicine; Visit Provider Otolaryngology
DX: R13.10 Dysphagia, unspecified (principal)
CPT/HCPCS: 74221

== ENCOUNTER → 2023-03-11 10:00 | Outpatient (BNV) | payer MEDICARE, SELFPAY | PROVIDERS: PCP Internal Medicine; Visit Provider Radiology Diagnostic Radiology | DX: R13.10 Dysphagia, unspecified (principal) | CPT/HCPCS: 74221 ==

== ENCOUNTER 2023-03-18 11:41 | Outpatient (REF) | payer MEDICARE, SELFPAY ==
[2023-03-18 14:14] LABS: Blood Urea Nitrogen 14 mg/dL (9-16); Estimated Glomerular Filt Rate > 60
== END 2023-03-18 11:42 | disposition home or self-care (01) ==
LOC: HO.HMGCLDS 11:41
PROVIDERS: PCP Internal Medicine; Visit Provider Internal Medicine
DX: I10 Essential (primary) hypertension (principal)
CPT/HCPCS: 36415; 82565; 84520

== ENCOUNTER 2023-03-24 06:46 | Outpatient (REF) | payer MEDICARE, SELFPAY ==
[2023-03-24 11:16] LABS: MANUAL DIFF FLAG NO
[2023-03-24 12:08] LABS: Alanine Aminotransferase 20 U/L (0-31); Albumin Level 4.1 g/dL (3.5-5.0); Alkaline Phosphatase 63 U/L (39-117); Anion Gap 10 (12-20); Aspartate Amino Transferase 17 U/L (5-31); Bilirubin Total 0.4 mg/dL (0.0-1.0); Blood Urea Nitrogen 12 mg/dL (9-16); Carbon Dioxide 30 mmol/L (22-29); Chloride 108 mmol/L (96-108); Cholesterol 204 mg/dL (<200); Estimated Glomerular Filt Rate > 60; Glucose Fasting 82 mg/dL (60-99); HDL Cholesterol 78 mg/dL (>40); Iron 85 mcg/dL (30-160); LDL Cholesterol Calculated 116 mg/dL (<100); Magnesium 2.1 mg/dL (1.6-2.6); Percent Iron Saturation 35 % (15-50); Potassium 3.8 mmol/L (3.3-5.1); Sodium 144 mmol/L (135-145); Total Iron Binding Capacity 246 mcg/dL (228-428); Total Protein 6.8 g/dL (6.5-8.0); Triglycerides 52 mg/dL (<150); Unsaturated Iron Binding 161 ug/dL
[2023-03-24 12:26] LABS: TSH reflex Free T4 2.93 uIU/mL (0.32-4.0); Vitamin D 25-OH Total 37.7 ng/mL (>30)
[2023-03-24 12:32] LABS: Folate 14.5 ng/mL (> or = 4.0); Vitamin B12 579 pg/mL (200-900)
[2023-03-24 13:02] LABS: Basophils Percent Auto 0.6 % (0-2); Eosinophils Absolute Auto 0.1 X10*3/uL (0.0-0.4); Eosinophils Percent Auto 2.6 % (0-4); Hematocrit 36.4 % (37.0-47.0); Hemoglobin 11.5 g/dl (12.0-16.0); Imm Gran Abs Auto 0.01 X10*3/uL (0.00-0.03); Imm Gran Pct Auto 0.2 % (0.0-0.4); Lymphocytes Absolute Auto 2.3 X10*3/uL (1.2-4.9); Lymphocytes Percent Auto 44.4 % (20-40); Mean Corpuscular HGB Conc 31.6 g/dl (31.0-35.0); Mean Corpuscular Hemoglobin 29.1 pg (27.0-33.0); Mean Corpuscular Volume 92.2 fL (80.0-98.0); Monocytes Absolute Auto 0.3 X10*3/uL (0.1-1.2); Monocytes Percent Auto 6.3 % (2-11); Neutrophils Absolute Auto 2.3 x10*3/uL (2.0-8.3); Neutrophils Percent Auto 45.9 % (45-73); Platelet Count 273 X10*3/uL (160-400); Red Blood Count 3.95 X10*6/uL (4.20-5.50); Red Cell Distribution Width 12.7 % (11.0-16.0); White Blood Count 5.1 X10*3/uL (4.8-10.8)
== END 2023-03-24 06:47 | disposition home or self-care (01) ==
LOC: HO.HMGCLDS 06:46
PROVIDERS: PCP Internal Medicine; Visit Provider Internal Medicine
DX: Z00.00 Encounter for general adult medical examination without abnormal findings (principal); D64.9 Anemia, unspecified; E78.5 Hyperlipidemia, unspecified; I10 Essential (primary) hypertension; E53.8 Deficiency of other specified B group vitamins; E55.9 Vitamin D deficiency, unspecified; R91.8 Other nonspecific abnormal finding of lung field
CPT/HCPCS: 36415; 80053; 80061; 82306; 82607; 82746; 83540; 83735; 84443; 85025

== ENCOUNTER 2023-03-25 08:20 | Outpatient (REF) | payer MEDICARE, SELFPAY | END 2023-03-25 08:21 | disposition home or self-care (01) | LOC: HO.MDS 08:20 | PROVIDERS: Visit Provider Internal Medicine | DX: M81.0 Age-related osteoporosis without current pathological fracture (principal) | CPT/HCPCS: 96365; J3489 ==

== ENCOUNTER 2023-04-07 07:43 | Outpatient (REF) | payer MEDICARE, SELFPAY ==
--- NOTE | ~2023-04-07 | CT_ITS ---
EXAMINATION: CT CHEST LOW-DOSE SCREENING WITHOUT CONTRAST HISTORY: Asymptomatic patient meeting criteria for lung screening. PATIENT PACK-YEAR HISTORY: 30 Current Smoker: No If former smoker, years since quittin COMPARISON: 09/04/2019 TECHNIQUE: Multidetector volumetric non-contrast CT imaging of the chest was performed using low dose screening CT technique. Axial thin section 0.625 mm reformations in soft tissue and lung windows were obtained. Sagittal and coronal reformations were obtained. Axial MIP images were also created and reviewed. RECONSTRUCTED WIDTH: 1.25 mm x 1.25 mm TOTAL EXAM DLP: 38 mGy-cm CTDIvol: 0.92 L mGy FINDINGS: LUNGS: Mild centrilobular emphysema. No suspicious pulmonary nodule. No focal consolidation. Central airways are patent. PLEURA: No pleural effusion. LYMPH NODES: No bulky mediastinal, hilar or axillary lymphadenopathy. MEDIASTINUM: Great vessels are of normal caliber. Heart size is normal. No pericardial effusion. CORONARY ARTERY CALCIFICATIONS: Mild. CHEST WALL/BREASTS: No acute abnormality. UPPER ABDOMEN: This study was performed without contrast and with lower than standard dose, reducing the sensitivity for detection of small lesions in the upper abdomen. OSSEOUS STRUCTURES: No destructive bone lesion. CT/CT lung screening IMPRESSION: No suspicious pulmonary nodule. LUNG-RADS CATEGORY ASSESSMENT: 2. Benign appearance or behavior. Nodules with a very low likelihood of becoming a clinically active cancer due to size or lack of growth. Continue annual screening with low-dose CT in 12 months. Probability of malignancy less than 1%. INCIDENTAL FINDINGS (S CATEGORY): Finding: No incidental findings. Significance category: Normal or normal variant. RECOMMENDATION: Low dose lung CT. overall in 1 year. Visual estimate of coronary calcified plaque burden: Mild. However, this exam cannot replace a dedicated cardiac CT calcium score for accurate assessment. LUNG-RADS CATEGORY: 2 -- BENIGN
== END 2023-04-07 07:44 | disposition home or self-care (01) ==
LOC: HO.CT 07:43
PROVIDERS: PCP Internal Medicine; Visit Provider Physician Assistant Medical
DX: Z12.2 Encounter for screening for malignant neoplasm of respiratory organs (principal); Z87.891 Personal history of nicotine dependence
CPT/HCPCS: 71271

== ENCOUNTER 2023-05-09 13:14 | Outpatient (REF) | payer MEDICARE, SELFPAY | END 2023-05-09 13:15 | disposition home or self-care (01) | LOC: HO.MAMMO 13:14 | PROVIDERS: PCP Internal Medicine; Visit Provider Internal Medicine | DX: Z12.31 Encounter for screening mammogram for malignant neoplasm of breast (principal) | CPT/HCPCS: 77063; 77067 ==

== ENCOUNTER → 2023-05-09 14:30 | Outpatient (BNV) | payer MEDICARE, SELFPAY | PROVIDERS: PCP Internal Medicine; Visit Provider Radiology Diagnostic Radiology | DX: Z12.31 Encounter for screening mammogram for malignant neoplasm of breast (principal) | CPT/HCPCS: 77063; 77067 ==

== ENCOUNTER 2023-08-08 12:30 | Outpatient (AMB) | payer MEDICARE, SELFPAY ==
[2023-08-08 12:34] VITALS: BP 121/60; PULSE 66; BMI 25.8
--- NOTE | 2023-08-08 12:34 | A.OFFVIS_ITS ---
Intake Vital Signs 08/08/23 12:34 Height 4 ft 11 in Weight 127 lb 13.89 oz BMI 25.8 BP 121/60 Blood Pressure Location Lt brachial Position Sitting Pulse 66 Intake Visit Reasons: 6 month fu Intake Note: Arleen presents to in office 6 months follow up of IBS. CC: Patient c/o throat hurting and feeling like closing up sometimes. She reports an episode when she felt a pop from her rectum and sometimes she feels something is blocking her stools. Sales Merchandise Associate Required: No Accompanied by: Self / Same As Patient Allergies No Known Allergies [No Known Allergies*] Allergy (Verified 08/08/23 12:39) HPI 6 month fu HPI Details Assessment & Plan (1) Irritable bowel syndrome with diarrh ea: Code(s): K58.0 - Irritable bowel syndrome with diarrhea Plan: Her throat pain continues and at times she has dysphagia. She says its my fault, I am not eating right. She has an ENT appt next month. 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 She is currently living with her daughter and this makes it hard to control her diet. However, she has not been able to ID any types of food that are culprits. She continues on her omeprazole and has not GERD, and she continues on her CREON. Her hemorrhoids have been controlled recently. ROV 6 mos. (2) GERD with esophagitis: Code(s): K21.00 - Gastro-esophageal reflux disease with esophagitis, without bleeding (3) Bleeding hemorrhoids: Code(s): K64.9 - Unspecified hemorrhoids (4) Reich's esophagus: Comment: Sonia finley EGD 05/2018: neg for SSBE 02/2020 EGD biopsy aeb also negative for metaplasia 05/2021 EGD no need for further surveillance endoscopies unless the patient becomes symptomatic Code(s): K22.70 - 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 Medications: Refilled omeprazole 40 mg PO DAILY 30 caps 6RF K22.70 - 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, K21.00 - Gastro-esophage al reflux disease with esophagitis, without bleeding vnhzgu-jtdwjday-pe ylase 6,000-19,000 -30,000 unit (Cre on) do not exce ed 10,000 unit/kg lipase per 24 hrs 1 cap PO .tidac 90 caps 6RF K58.0 - Irritable bowel syndrome wit h diarrhea ? TODAYS VISIT She tells me today that she heard a ?pop? from her rectum and she is concerned that something is ?blocking my stool from coming out. ? Her 2019 colonoscopy did show a sigmoid prolapse with angulation so this could be part of the problem.This is only occurring occasionally. She is educated to keep her stools on the softer side r/t the prolapse and only consider surgery if the situation becomes unmanageable. She continues to have daily throat pain. She saw the ear nose throat and was told that everything was fine. Again also her Barretts is controls this does not seem to be from reflux. She does note that it seems to worsen when she has a lot of sugar and resolve when she avoid sugar-which she has some difficulty doing. This leads me to wonder if there is an element of esophageal Rebeca and I think it is worth it to try an empiric course of Diflucan to see if this improves her pain. She is advised to stop her statin for the duration of this therapy to reduce the possibility of myalgias. She continues on her Creon with good control of her bowels, her omeprazole with good control of her heartburn. ROV 6 mos. [facility] Medical History (Updated 08/08/23 @ 13:07 by GONZÁLEZ Quiroga) Encounter for screening for malignant neoplasm of lung in current smoker with 30 pack year history or greater Diarrhea Upper abdominal pain Annual physical exam Constipation History of smoking at least 1 pack per day for at least 30 years Anxiety Lung nodule, multiple HTN (hypertension) Reich's esophagus Hemorrhoids Hiatal hernia Hyperlipidemia Depression Surgical History History of esophagogastroduodenoscopy (EGD) H/O colonoscopy Family History Father Colon cancer Mother Colon cancer Social History Housing: House Alcohol intake: never Patient Tobacco Use Status: Former Tobacco user Quit Date: 2015 e-Cigarette/Vaping Use: Never Used Current occupational status: employed Cognitive needs: No Hearing needs: No Vision needs: Yes Review of Systems Const Denies fatigue, Denies fever(s), Denies night sweats, Denies poor appetite and Denies weight loss Eyes Details: glasses Reports requires corrective lenses ENT Reports Normal hearing present, Denies dental pain, Denies dysphagia, Denies hearing loss, Denies mouth pain, Reports odynophagia, Denies throat swelling, Denies tongue swelling and Reports other (Dentition adequate) Card Reports no additional complaints Resp Reports no additional complaints GI Details: Denies abdominal pain, Denies melena, Reports bloating, Denies hematochezia, Reports constipation, Denies GI cramping, Denies dysphagia, Denies excessive flatus, Denies early satiety, Reports heartburn, Reports diarrhea, Denies nausea, Reports odynophagia, Denies vomiting and Denies hematemesis Skin/Breast Denies pruritus, Denies lesions, Denies rash and Denies jaundice Neuro Reports Normal hearing present and Denies Abnormal speech present Endo Denies fatigue Aller/Immun Denies throat swelling and Denies tongue swelling Physical Exam Vital Signs: Last Vital Signs Pulse 66 08/08/23 12:34 BP 121/60 08/08/23 12:34 BMI result Body Mass Index 25.8 Const General: cooperative, no acute distress, well developed and well groomed Nutritional Appearance: average body habitus and well nourished Orientation/consciousness: oriented to person, oriented to place and oriented to time Limitations: No language barrier HEENT Head: Yes normocephalic and Yes atraumatic Eyes General: appearance normal, both eyes and all related structures Pupils: Equal, round and reactive pupils present Neck Neck: Yes normal visual inspection and Yes no lymphadenopathy Thyroid: Thyroid normal Resp Effort & Inspection: normal respiratory effort and able to speak in complete sentences Auscultation: clear to auscultation bilaterally Cardio Rate: regular rate Rhythm: regular rhythm Heart sounds: Normal, physiologic split S2 sound present Peripheral pulses: radial pulses present and posterior tibial pulses present GI Inspection: No distended and No Abdominal panniculus present Palpation (GI): Soft to palpation, nontender, no guarding, not rigid and No hepatosplenomegaly present Percussion: Yes normal to percussion Auscultation: normal bowel sounds Rectal Exam - Female: deferred Skin General skin exam: no rashes or lesions noted, turgor normal, skin not dry, no jaundice, No spider nevi and no striae Rashes: no rashes Nails: normal Neuro General: oriented to person, oriented to place and oriented to time Cranial nerves: Yes Equal, round and reactive pupils present and Yes Normal hearing present Speech: No Abnormal speech present Extrem General: Yes normal to inspection, No clubbing, No cyanosis and No edema Psych Appearance: grossly normal and well kempt Mental Status: mental status grossly normal Speech and movement: Normal speech and movement present Thought process: Normal thought process present and not confabulating Thought content: Normal thought content present Insight: Fair insight present (Psych) Judgement: Fair judgement present (Psych) Assessment & Plan Assessment & Plan (1) Reich's esophagus: Comment: Sonia finley EGD 05/2018: neg for SSBE 02/2020 EGD biopsy aeb also negative for metaplasia 05/2021 EGD no need for further surveillance endoscopies unless the patient becomes symptomatic Code(s): K22.70 - 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 (2) Bleeding hemorrhoids: Code(s): K64.9 - Unspecified hemorrhoids (3) GERD with esophagitis: Code(s): K21.00 - Gastro-esophageal reflux disease with esophagitis, without bleeding (4) Abdominal bloating: Code(s): R14.0 - Abdominal distension (gaseous) (5) Sigmoid colon mucosal prolapse: Code(s): K63.4 - Enteroptosis (6) Candidiasis of mouth and esophagus: Comment: suspected only tx empirically Code(s): B37.81 - Candidal esophagitis; B37.0 - Candidal stomatitis Plan She tells me today that she heard a ?pop? from her rectum and she is concerned that something is ?blocking my stool from coming out. ? Her 2019 colonoscopy did show a sigmoid prolapse with angulation so this could be part of the problem.This is only occurring occasionally. She is educated to keep her stools on the softer side r/t the prolapse and only consider surgery if the situation becomes unmanageable. She continues to have daily throat pain. She saw the ear nose throat and was told that everything was fine. Again also her Barretts is controls this does not seem to be from reflux. She does note that it seems to worsen when she has a lot of sugar and resolve when she avoid sugar-which she has some difficulty doing. This leads me to wonder if there is an element of esophageal Rebeca and I think it is worth it to try an empiric course of Diflucan to see if this improves her pain. She is advised to stop her statin for the duration of this therapy to reduce the possibility of myalgias. She continues on her Creon with good control of her bowels, her omeprazole with good control of her heartburn. ROV 6 mos. Medications: New fluconazole (Diflucan) 100 mg PO DAILY 14 days 14 tabs 0RF B37.0 - Candidal stomatitis, B37.81 - Candidal esophagitis Refilled uhkwgq-htzmtjca-wvhcxnc 6,000-19,000 -30,000 unit (Creon) do not exceed 10,000 unit/kg lipase per 24 hrs 1 cap PO .tidac 90 caps 6RF K58.0 - Irritable bowel syndrome with diarrhea hydrocortisone 2.5% (Proctosol HC) 1 appl SC BID PRN 30 grams 3RF hemorrhoids K64.9 - Unspecified hemorrhoids omeprazole 40 mg PO DAILY 30 caps 6RF K21.00 - Gastro-esophageal reflux disease with esophagitis, without bleeding, K22.70 - 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 Coding Level of Care Code Est Pt Level 3 (88628) Diagnoses Reich's esophagus K22.70 Bleeding hemorrhoids K64.9 GERD with esophagitis K21.00 Abdominal bloating R14.0 Sigmoid colon mucosal prolapse K63.4 Candidiasis of mouth and esophagus B37.81; B37.0
== END 2023-08-08 13:12 | disposition home or self-care (01) ==
PROVIDERS: PCP Internal Medicine; Visit Provider Nurse Practitioner
DX: K22.70 Barrett's esophagus without dysplasia (principal); K64.9 Unspecified hemorrhoids; K21.00 Gastro-esophageal reflux disease with esophagitis, without bleeding; R14.0 Abdominal distension (gaseous); K63.4 Enteroptosis; B37.81 Candidal esophagitis; B37.0 Candidal stomatitis
CPT/HCPCS: 99213

== ENCOUNTER → 2023-08-08 12:30 | Outpatient (BNVA) | payer MEDICARE, SELFPAY | PROVIDERS: PCP Internal Medicine; Visit Provider Nurse Practitioner | DX: K22.70 Barrett's esophagus without dysplasia (principal); K64.9 Unspecified hemorrhoids; K21.00 Gastro-esophageal reflux disease with esophagitis, without bleeding; R14.0 Abdominal distension (gaseous); K63.4 Enteroptosis; B37.81 Candidal esophagitis; B37.0 Candidal stomatitis; K58.0 Irritable bowel syndrome with diarrhea | CPT/HCPCS: 99212 ==

== ENCOUNTER 2023-09-05 12:25 | Outpatient (AMB) | payer MEDICARE, SELFPAY ==
[2023-09-05 12:40] VITALS: BP 122/70; PULSE 68; O2SAT 98; BMI 26.3
--- NOTE | 2023-09-05 12:40 | A.OFFPC_ITS ---
Vital Signs 09/05/23 12:40 Height 4 ft 11 in Weight 130 lb BMI 26.3 BP 122/70 Blood Pressure Location Lt brachial Position Sitting Pulse 68 Pulse Source Pulse Oximeter Pulse Oximetry (%) 98 Oxygen Delivery Method Room Air Intake Visit Reasons: 6 month Follow up Intake Note: Pt is here today for 6 months follow up visit. Allergies No Known Allergies [No Known Allergies*] Allergy (Verified 09/05/23 12:46) Medication List - Last Reconciled 09/05/23 by Aspen Navas MD albuterol sulfate 90 mcg/actuation (Ventolin HFA) 1 inh inhalation QID PRN bupropion HCl 150 mg PO BID fluconazole (Diflucan) 100 mg PO DAILY 14 days hydrocortisone 2.5% (Proctosol HC) 1 appl NE BID PRN srzkcq-pkbcyamq-rikfxjd 6,000-19,000 -30,000 unit (Creon) 1 cap PO .tidac olmesartan 5 mg PO BEDTIME omeprazole 40 mg PO DAILY potassium chloride ER 20 mEq PO DAILY pravastatin 80 mg PO BEDTIME zoledronic tpnn-oqqdbkku-usvbb 5 mg/100 mL (Reclast) 1 ea IV ONCE Tobacco use date assessed: 09/05/23 Fall risk assessment: No Falls in past year Last assessed Fall Risk: 09/05/23 Dental Screening Dental Screen Date: 09/05/23 Did you have a dental visit in the last 12 months?: Yes Did you have a dental problem in the last 6 months where you did not have access to dental care?: No Was dental information given to patient?: Patient has dentist HPI 6 month Follow up HPI Details Patient presents for the follow-up on hypertension hyperlipidemia chronic anxiety chronic GERD stable on current medications. [facility] Medical History (Updated 09/05/23 @ 13:26 by Aspen Navas MD) Encounter for screening for malignant neoplasm of lung in current smoker with 30 pack year history or greater Diarrhea Upper abdominal pain Annual physical exam Constipation Anxiety Lung nodule, multiple HTN (hypertension) Reich's esophagus Hemorrhoids Hiatal hernia Hyperlipidemia Surgical History History of esophagogastroduodenoscopy (EGD) H/O colonoscopy Family History Father Colon cancer Mother Colon cancer Social History Housing: House Alcohol intake: never Patient Tobacco Use Status: Former Tobacco user Quit Date: 2015 e-Cigarette/Vaping Use: Never Used Current occupational status: employed Cognitive needs: No Hearing needs: No Vision needs: Yes Questionnaire Thrive Questionnaire Date Thrive assessed: 09/03/22 AUDIT C Alcohol Use Questionnaire (AUDIT-C) 1. How often do you have a drink containing alcohol?: Never 3. How often do you have six or more drinks on one occasion?: Never Total Score: 0 PARAS-7 AMB Questionnaire PARAS-7 Date PARAS - 7 assessed: 09/03/22 Feeling nervous, anxious, or on edge: 1 = Several days Not being able to stop or control worryin = Several days Worrying too much about different things: 1 = Several days Trouble relaxin = Several days Being so restless that it is hard to sit still: 1 = Several days Becoming easily annoyed or irritable: 1 = Several days Feeling afraid as if something awful might happen: 3 = Nearly every day Total PARAS-7 score (0-4 normal; 5-9 mild; 10-14 moderate; 15-21 severe): 9 Source: Developed by Drs. Siva Ozuna, Keyana Lopez, Bairon Stephenson and colleagues, with an educational christofer from [employer]. Review of Systems Const All systems reviewed & are unremarkable except as noted in HPI and below Reports no additional complaints Eyes Reports no additional complaints ENT Reports no additional complaints Card Reports no additional complaints Resp Reports no additional complaints GI Reports no additional complaints Reports no additional complaints Physical exam (Primary Care) Vital Signs: Last Vital Signs Pulse 68 09/05/23 12:40 BP 122/70 09/05/23 12:40 Pulse Ox 98 09/05/23 12:40 Oxygen Delivery Method Room Air 09/05/23 12:40 BMI result Body Mass Index 26.3 Tobacco/Smoking Status: Tobacco use Status Tobacco use date assessed 09/05/23 09/05/23 12:48 Patient Tobacco Use Status Former Tobacco user 09/05/23 12:40 e-Cigarette/Vaping Use Never Used 09/05/23 12:40 Thrive Assessment: Date of Thrive Assessment Date Thrive assessed 09/03/22 09/05/23 12:40 Const General: no acute distress HENMT Head: Yes normal to inspection Mouth: Normal oral and palatal mucosa present Eyes General: appearance normal, both eyes and all related structures Neck Neck: Yes no lymphadenopathy and Yes supple Resp Effort & Inspection: normal respiratory effort Auscultation: clear to auscultation bilaterally Cardio Rhythm: regular rhythm Heart sounds: S1 normal heart sound present and S2 normal heart sound present GI Inspection: Yes normal to inspection Palpation (GI): Soft to palpation Assessment and Plan Assessment & Plan (1) Osteoporosis: Comment: DEXA 07/04 T score -3.6 in L spine, patient cannot tolerate Fosamax because of Reich's esophagus and chronic GERD. Reclast infusion 03/25/23 Code(s): M81.0 - Age-related osteoporosis without current pathological fracture Plan: Continue vitamin-D weight-bearing exercises and patient is due for Reclast infusion in March (2) Anxiety: Comment: PATIENT DOES HAVE ANXIETY SYNDROME, AND MOST OF THE TIME HER INCREASED SHORTNESS OF BREATH IS RELATED TO BEING UNDER STRESS AND ANXIOUS. Code(s): F41.9 - Anxiety disorder, unspecified Plan: Continue bupropion (3) HTN (hypertension): Code(s): I10 - Essential (primary) hypertension Plan: Continue listen (4) Reich's esophagus: Comment: Sonia finley EGD 05/2018: neg for SSBE 02/2020 EGD biopsy aeb also negative for metaplasia 05/2021 EGD no need for further surveillance endoscopies unless the patient becomes symptomatic Code(s): K22.70 - 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 Plan: On a high dose of PPI (5) Hyperlipidemia: Code(s): E78.5 - Hyperlipidemia, unspecified Plan: Continue pravastatin, physical in March with a fasting labs before Orders: Orders Comprehensive [place]. Panel Fast 7 Months E78.5 - Hyperlipidemia, unspecified, F41.9 - Anxiety disorder, unspecified, I10 - Essential (primary) hypertension, K22.70 - 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, M81.0 - Age-related osteoporosis without current pathological fracture Lipid Panel 7 Months E78.5 - Hyperlipidemia, unspecified, F41.9 - Anxiety disorder, unspecified, I10 - Essential (primary) hypertension, K22.70 - 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, M81.0 - Age-related osteoporosis without current pathological fracture Vitamin D 25-OH Total 7 Months E78.5 - Hyperlipidemia, unspecified, F41.9 - Anxiety disorder, unspecified, I10 - Essential (primary) hypertension, K22.70 - 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, M81.0 - Age-related osteoporosis without current pathological fracture Complete Blood Count Auto Diff 7 Months E78.5 - Hyperlipidemia, unspecified, F41.9 - Anxiety disorder, unspecified, I10 - Essential (primary) hypertension, K22.70 - 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, M81.0 - Age-related osteoporosis without current pathological fracture TSH reflex Free T4 7 Months E78.5 - Hyperlipidemia, unspecified, F41.9 - Anxiety disorder, unspecified, I10 - Essential (primary) hypertension, K22.70 - 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, M81.0 - Age-related osteoporosis without current pathological fracture Medications: Discontinued fluconazole (Diflucan) Discontinued Reason: Doctor's Order 100 mg PO DAILY 14 days 14 tabs 0RF B37 .0 - Candidal stomatitis, B37.81 - Candidal esophagitis Coding Level of Care Code Est Pt Level 4 (84422) Diagnoses Osteoporosis M81.0 Anxiety F41.9 HTN (hypertension) I10 Reich's esophagus K22.70 Hyperlipidemia E78.5
== END 2023-09-05 13:17 | disposition home or self-care (01) ==
PROVIDERS: PCP Internal Medicine; Visit Provider Internal Medicine
DX: M81.0 Age-related osteoporosis without current pathological fracture (principal); F41.9 Anxiety disorder, unspecified; I10 Essential (primary) hypertension; K22.70 Barrett's esophagus without dysplasia; E78.5 Hyperlipidemia, unspecified
CPT/HCPCS: 99214

== ENCOUNTER 2024-01-23 12:29 | Outpatient (AMB) | payer MEDICARE, SELFPAY ==
--- NOTE | 2024-01-23 12:29 | AM.OFFWIN_ITS ---
Intake Vital Signs 01/23/24 12:31 Height 4 ft 11 in Weight 129 lb BMI 26.1 BP 114/72 Blood Pressure Location Rt brachial Position Sitting Pulse 73 Pulse Source Pulse Oximeter Temp 98.5 F Temp Source Oral Pulse Oximetry (%) 98 Oxygen Delivery Method Room Air Intake Visit Reasons: EP RT ankle swelling/leg pain Intake Note: pt is here c/o RT ankle swelling and leg pain. Ongoing. Worsening last couple days Patient Tobacco Use Status: Former Tobacco user Allergies No Known Allergies [No Known Allergies*] Allergy (Verified 01/23/24 12:30) Do you need a note to return to daycare/school/sports/work: No HPI EP RT ankle swelling/leg pain HPI Details This note is constructed using voice recognition software. While every effort has been made to ensure accuracy, dairy truck driver errors may have been included. 68 y.o. female presents with 1 year hist ory of right ankle swelling and pain. She has an appointment scheduled in March to review this, however after speaking with a nurse that she met through work, she was advised that she should have this evaluated so she decided to be seen today. She is not having any increased symptoms. She reports injuring her great toe 5 years ago, no other injury to the leg, has never had surgery to the leg including any knee surgery. She has no warmth, redness, or reduced range of motion at home. [facility] Medical History (Updated 09/05/23 @ 13:26 by Aspen Navas MD) Encounter for screening for malignant neoplasm of lung in current smoker with 30 pack year history or greater Diarrhea Upper abdominal pain Annual physical exam Constipation Anxiety Lung nodule, multiple HTN (hypertension) Reich's esophagus Hemorrhoids Hiatal hernia Hyperlipidemia Surgical History History of esophagogastroduodenoscopy (EGD) H/O colonoscopy Family History Father Colon cancer Mother Colon cancer Social History Housing: House Alcohol intake: never Patient Tobacco Use Status: Former Tobacco user e-Cigarette/Vaping Use: Never Used Current occupational status: employed Cognitive needs: No Hearing needs: No Vision needs: Yes Review of Systems Const All systems reviewed & are unremarkable except as noted in HPI and below Physical Exam Vital Signs: Last Vital Signs Temp 98.5 F 01/23/24 12:31 Pulse 73 01/23/24 12:31 BP 114/72 01/23/24 12:31 Pulse Ox 98 01/23/24 12:31 Oxygen Delivery Method Room Air 01/23/24 12:31 BMI result Body Mass Index 26.1 Const General: cooperative, healthy appearing, comfortable, no acute distress and alert Orientation/consciousness: patient oriented x3 Limitations: no limitations Skin Other: small 3-4 mm callus to bottom of foot at base of 3rd toe. General skin exam: no rashes or lesions noted, elasticity normal and turgor normal Neuro General: patient oriented x3 Extrem Other: RLE varicose veins present. Nonpitting left medial posterior maleoulus edema present. No erythema, warmth. Negative Homann's. General: Yes full ROM, Yes capillary refill normal and Yes normal exam except as noted Psych Appearance: grossly normal Mental Status: mental status grossly normal Speech and movement: Normal speech and movement present Affect: normal affect Assessment & Plan Assessment & Plan (1) Varicose veins of right leg with edema: Code(s): I83.891 - Varicose veins of right lower extremity with other complications Plan: No concern for DVT due to timeline since symptom onset, as well as examination today. Advised compression stockings, leg elevation. Keep follow up with pcp and arrange for sooner evaluation with worsening, particularly pitting edema or respiratory symptoms. (2) Callus of foot: Code(s): L84 - Corns and callosities Plan: Advised trial otc callus pad, and consideration of pedicure. The area is small, may not benefit from shave at this time. Advised follow up as needed with worsening symptoms. Plan See above for full details and plan. Coding Level of Care Code Est Pt Level 3 (25991) Diagnoses Varicose veins of right leg with edema I83.891 Callus of foot L84
[2024-01-23 12:31] VITALS: BP 114/72; PULSE 73; TEMP 36.9; O2SAT 98; BMI 26.1
== END 2024-01-23 12:57 | disposition home or self-care (01) ==
PROVIDERS: PCP Internal Medicine; Visit Provider Registered Nurse
DX: I83.891 Varicose veins of right lower extremity with other complications (principal); L84 Corns and callosities
CPT/HCPCS: 99213

== ENCOUNTER 2024-03-16 07:33 | Outpatient (AMB) | payer MEDICARE, SELFPAY ==
[2024-03-16 07:56] VITALS: BP 118/78; PULSE 74; O2SAT 99; BMI 25.4
--- NOTE | 2024-03-16 07:56 | A.OFFPC_ITS ---
Vital Signs 03/16/24 07:56 Height 4 ft 11 in Weight 126 lb BMI 25.4 BP 118/78 Blood Pressure Location Lt brachial Position Sitting Pulse 74 Pulse Source Pulse Oximeter Pulse Oximetry (%) 99 Oxygen Delivery Method Room Air Intake Visit Reasons: Annual PE Intake Note: Pt is here today for her PE Allergies No Known Allergies [No Known Allergies*] Allergy (Verified 03/16/24 07:58) Medication List - Last Reconciled 03/16/24 by Aspen Navas MD bupropion HCl SR 150 mg PO BID hydrocortisone 2.5% (Proctosol HC) 1 appl DC BID PRN mtwqbi-vaossrjc-xkwbvke 6,000-19,000 -30,000 unit (Creon) 1 cap PO .tidac olmesartan 5 mg PO BEDTIME omeprazole 40 mg PO DAILY potassium chloride ER 20 mEq PO DAILY pravastatin 80 mg PO BEDTIME Tobacco use date assessed: 03/16/24 Fall risk assessment: 1 Fall in past year Last assessed Fall Risk: 03/16/24 Dental Screening Dental Screen Date: 03/16/24 Did you have a dental visit in the last 12 months?: Yes Did you have a dental problem in the last 6 months where you did not have access to dental care?: No Was dental information given to patient?: Patient has dentist HPI Annual PE HPI Details Pt is for PE. PFSH Medical History Encounter for screening for malignant neoplasm of lung in current smoker with 30 pack year history or greater Diarrhea Upper abdominal pain Annual physical exam Constipation Anxiety Lung nodule, multiple HTN (hypertension) Reich's esophagus Hemorrhoids Hiatal hernia Hyperlipidemia Surgical History History of esophagogastroduodenoscopy (EGD) H/O colonoscopy Family History Father Colon cancer Mother Colon cancer Social History Housing: House Alcohol intake: never Patient Tobacco Use Status: Former Tobacco user e-Cigarette/Vaping Use: Never Used Current occupational status: employed Cognitive needs: No Hearing needs: No Vision needs: Yes Questionnaire Thrive Questionnaire Date Thrive assessed: 09/03/22 PARAS-7 AMB Questionnaire PARAS-7 Date PARAS - 7 assessed: 09/03/22 Source: Developed by Drs. Siva Ozuna, Keyana Lopez, Bairon Stephenson and colleagues, with an educational christofer from [employer]. Review of Systems Const All systems reviewed & are unremarkable except as noted in HPI and below Reports no additional complaints Eyes Reports no additional complaints ENT Reports no additional complaints Card Reports no additional complaints Resp Reports no additional complaints GI Reports no additional complaints Reports no additional complaints Physical exam (Primary Care) Vital Signs: Last Vital Signs Pulse 74 03/16/24 07:56 BP 118/78 03/16/24 07:56 Pulse Ox 99 03/16/24 07:56 Oxygen Delivery Method Room Air 03/16/24 07:56 BMI result Body Mass Index 25.4 Tobacco/Smoking Status: Tobacco use Status Tobacco use date assessed 03/16/24 03/16/24 07:59 Patient Tobacco Use Status Former Tobacco user 03/16/24 07:59 e-Cigarette/Vaping Use Never Used 03/16/24 07:59 Thrive Assessment: Date of Thrive Assessment Date Thrive assessed 09/03/22 03/16/24 07:59 Const General: no acute distress HENMT Head: Yes normal to inspection Ears: hearing grossly normal bilaterally General nose exam: Normal external nose present Face and sinus: Yes normal facial exam Mouth: Normal oral and palatal mucosa present Throat: Yes posterior oropharynx normal Eyes General: appearance normal, both eyes and all related structures Neck Neck: Yes no lymphadenopathy and Yes supple Resp Effort & Inspection: normal respiratory effort Auscultation: clear to auscultation bilaterally Cardio Rhythm: regular rhythm Heart sounds: S1 normal heart sound present and S2 normal heart sound present GI Inspection: Yes normal to inspection Palpation (GI): Soft to palpation Percussion: Yes normal to percussion Auscultation: normal bowel sounds Assessment and Plan Assessment & Plan (1) Osteoporosis: Comment: DEXA 07/04 T score -3.6 in L spine, patient cannot tolerate Fosamax because of Reich's esophagus and chronic GERD. Reclast infusion 03/25/23 Code(s): M81.0 - Age-related osteoporosis without current pathological fracture Plan: check DEXA, cont vit D (2) GERD with esophagitis: Comment: f/u with GI , Code(s): K21.00 - Gastro-esophageal reflux disease with esophagitis, without bleeding Plan: cont PPI (3) Family history of colon cancer in father: Comment: mother and father., 2019 scope:internal hemorrhoids, Repeat asymptomatic screening in this patient would be 5 years. I would recommend due to the difficulty of the colonoscopic procedure that she will not have endoscopies and colonoscopy scheduled on the same day. This adds to postprocedure distention etc,. Code(s): Z80.0 - Family history of malignant neoplasm of digestive organs Plan: f/u with GI (4) Hyperlipidemia: Code(s): E78.5 - Hyperlipidemia, unspecified Plan: cont statin (5) Lung nodule, multiple: Comment: CT 02/2021, ex smoker, CT stable 12/02, recheck in 1 year, patient is in lung screening program. Code(s): R91.8 - Other nonspecific abnormal finding of lung field Plan: f/u with lung ca screening program (6) HTN (hypertension): Code(s): I10 - Essential (primary) hypertension Plan: cont med, check labs today (7) Annual physical exam: Code(s): Z00.00 - Encounter for general adult medical examination without abnormal findings Orders: Orders XR DEXA axial skeleton Today M81.0 - Age-related osteoporosis without current pathological fracture Complete Blood Count Auto Diff 1 Year E55.9 - Vitamin D deficiency, unspecified, I10 - Essential (primary) hypertension, M81.0 - Age-related osteoporosis without current pathological fracture, Z00.00 - Encounter for general adult medical examination without abnormal findings Comprehensive [place]. Panel Fast 1 Year E55.9 - Vitamin D deficiency, unspecified, I10 - Essential (primary) hypertension, M81.0 - Age-related osteoporosis without current pathological fracture, Z00.00 - Encounter for general adult medical examination without abnormal findings Lipid Panel 1 Year E55.9 - Vitamin D deficiency, unspecified, I10 - Essential (primary) hypertension, M81.0 - Age-related osteoporosis without current pathological fracture, Z00.00 - Encounter for general adult medical examination without abnormal findings Vitamin D 25-OH Total 1 Year E55.9 - Vitamin D deficiency, unspecified, I10 - Essential (primary) hypertension, M81.0 - Age-related osteoporosis without current pathological fracture, Z00.00 - Encounter for general adult medical examination without abnormal findings Coding Level of Care Code Est Pt Prev Care >65y(32459) Diagnoses Osteoporosis M81.0 GERD with esophagitis K21.00 Family history of colon cancer in father Z80.0 Hyperlipidemia E78.5 Lung nodule, multiple R91.8 HTN (hypertension) I10 Annual physical exam Z00.00
== END 2024-03-16 08:19 | disposition home or self-care (01) ==
PROVIDERS: PCP Internal Medicine; Visit Provider Internal Medicine
DX: M81.0 Age-related osteoporosis without current pathological fracture (principal); K21.00 Gastro-esophageal reflux disease with esophagitis, without bleeding; Z80.0 Family history of malignant neoplasm of digestive organs; E78.5 Hyperlipidemia, unspecified; R91.8 Other nonspecific abnormal finding of lung field; I10 Essential (primary) hypertension; Z00.00 Encounter for general adult medical examination without abnormal findings
CPT/HCPCS: 99397

== ENCOUNTER 2024-03-16 08:20 | Outpatient (REF) | payer MEDICARE, SELFPAY ==
[2024-03-16 10:01] LABS: MANUAL DIFF FLAG NO
[2024-03-16 10:13] LABS: Basophils Percent Auto 0.6 % (0-2); Eosinophils Absolute Auto 0.1 X10*3/uL (0.0-0.4); Hematocrit 37.4 % (37.0-47.0); Hemoglobin 11.9 g/dl (12.0-16.0); Imm Gran Abs Auto 0.01 X10*3/uL (0.00-0.03); Imm Gran Pct Auto 0.2 % (0.0-0.4); Lymphocytes Absolute Auto 2.4 X10*3/uL (1.2-4.9); Lymphocytes Percent Auto 47.3 % (20-40); Mean Corpuscular HGB Conc 31.8 g/dl (31.0-35.0); Mean Corpuscular Hemoglobin 29.4 pg (27.0-33.0); Mean Corpuscular Volume 92.3 fL (80.0-98.0); Mean Platelet Volume 10.2 fL (9.4-12.3); Monocytes Absolute Auto 0.3 X10*3/uL (0.1-1.2); Monocytes Percent Auto 5.3 % (2-11); Neutrophils Absolute Auto 2.3 x10*3/uL (2.0-8.3); Neutrophils Percent Auto 44.6 % (45-73); Platelet Count 261 X10*3/uL (160-400); Red Blood Count 4.05 X10*6/uL (4.20-5.50); Red Cell Distribution Width 13.2 % (11.0-16.0); White Blood Count 5.1 X10*3/uL (4.8-10.8)
[2024-03-16 10:25] LABS: Alanine Aminotransferase 21 U/L (0-31); Albumin Level 4.3 g/dL (3.5-5.0); Alkaline Phosphatase 58 U/L (39-117); Anion Gap 12 (12-20); Aspartate Amino Transferase 17 U/L (5-31); Bilirubin Total 0.4 mg/dL (0.0-1.0); Blood Urea Nitrogen 14 mg/dL (9-16); Calcium 9.4 mg/dL (8.4-10.2); Carbon Dioxide 28 mmol/L (22-29); Chloride 108 mmol/L (96-108); Cholesterol 209 mg/dL (<200); Estimated Glomerular Filt Rate > 60; Glucose Fasting 90 mg/dL (60-99); HDL Cholesterol 71 mg/dL (>40); LDL Cholesterol Calculated 127 mg/dL (<100); Potassium 4.2 mmol/L (3.3-5.1); Sodium 144 mmol/L (135-145); Total Protein 7.2 g/dL (6.5-8.0); Triglycerides 58 mg/dL (<150)
[2024-03-16 10:47] LABS: TSH reflex Free T4 1.95 uIU/mL (0.32-4.0); Vitamin D 25-OH Total 49.9 ng/mL (>30)
== END 2024-03-16 08:21 | disposition home or self-care (01) ==
LOC: HO.HMGCLDS 08:20
PROVIDERS: PCP Internal Medicine; Visit Provider Internal Medicine
DX: M81.0 Age-related osteoporosis without current pathological fracture (principal); F41.9 Anxiety disorder, unspecified; I10 Essential (primary) hypertension; K22.70 Barrett's esophagus without dysplasia; E78.5 Hyperlipidemia, unspecified
CPT/HCPCS: 36415; 80053; 80061; 82306; 84443; 85025

== ENCOUNTER 2024-05-17 16:08 | Outpatient (REF) | payer MEDICARE, SELFPAY | END 2024-05-17 16:09 | disposition home or self-care (01) | LOC: HO.CT 16:08 | PROVIDERS: PCP Internal Medicine; Visit Provider Physician Assistant Medical | DX: Z12.2 Encounter for screening for malignant neoplasm of respiratory organs (principal); Z87.891 Personal history of nicotine dependence | CPT/HCPCS: 71271 ==

== ENCOUNTER 2024-06-23 13:28 | Outpatient (REF) | payer MEDICARE, SELFPAY ==
--- NOTE | ~2024-06-23 | MM_ITS ---
EXAMINATION: BONE DENSITOMETRY CLINICAL INDICATION: Age-related osteoporosis without current pathological fracture. COMPARISON: Baseline BD dated 06/18/2022. TECHNIQUE: Using a Daz 3d DXA System (software version: 13.1) manufactured by [employer], dual-energy x-ray absorptiometry was performed of the lumbar spine and left hip. The images are of good technical quality. Summary results are attached. FINDINGS: LEFT FEMUR, NECK: Current: BMD 0.780 g/cm2, Z-score -0.2, T-score -1.9, osteopenia. Baseline: BMD 0.761 g/cm2. LEFT FEMUR, TOTAL: Current: BMD 0.843 g/cm2, Z-score 0.1, T-score -1.3, osteopenia, 1.1% increase from baseline (<5% change is not significant). Baseline: BMD 0.834 g/cm2. AP SPINE L1-L4: Current: BMD 0.805 g/cm2, Z-score -1.4, T-score -3.1, osteoporosis, 6.9% increase from baseline (<5% change is not significant). Baseline: BMD 0.753 g/cm2. IDENTIFIED RISK FACTORS: Early menopause, height loss, left oophorectomy, secondary osteoporosis. HISTORY OF FRACTURE: None listed. MEDICATIONS: Calcium or multivitamin. Vitamin D. MM/XR DEXA axial skeleton IMPRESSION: 1. DIAGNOSIS: Osteoporosis based on the lowest T-score value of -3.1 in the lumbar spine applying World Health Organization criteria. 2. 10-YEAR FRACTURE RISK PREDICTION, FRAX: According to the guidelines, FRAX calculation should only be performed on patients in the osteopenia bone density category. Therefore, FRAX was not performed on this patient. 3. Treatment Recommendations: NOF guidelines recommend consideration for treatment in postmenopausal women and men age 50 and older presenting with the following: -A hip or vertebral (clinical or morphometric) fracture. -T-score less than or equal to -2.5 at the femoral neck or spine after appropriate evaluation to exclude secondary causes. -Low bone mass at the hip or spine and a 10-year fracture probability by FRAX of greater than or equal to 3% for hip fracture or greater than or equal to 20% for major osteoporotic fracture based on the [place] adapted WHO algorithm. 4. Other Recommendations: All treatment decisions require clinical judgment and consideration of individual patient factors, including patient preferences, comorbidities, previous drug use, risk factors not captured in the FRAX model (e.g. frailty, falls, vitamin D deficiency, increased bone turnover, interval significant decline in bone density) and possible under or overestimation of fracture risk by FRAX. Additional medical evaluation for secondary cause of low bone mineral density may be appropriate. FUTURE SCAN RECOMMENDATION: People with diagnosed cases of osteoporosis or at high risk for fracture should have regular bone mineral density tests. For patients eligible for Medicare, routine testing is allowed once every 2 years. The testing frequency can be increased to one year for patients who have rapidly progressing disease, those who are receiving or discontinuing medical therapy to restore bone mass, or have additional risk factors. Electronically signed by: Kody Pierre MD 06/23/2024 04:18 PM ANNAMARIE STARR
--- OUTSIDE RECORDS SUMMARY | 2024-06-24 02:27 | XMS_ITS ---
Author Organization 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
--- OUTSIDE RECORDS SUMMARY | 2024-06-24 02:27 | XMS_ITS ---
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 MEDICATIONS Medication SIG (Take, Route, Frequency, Duration) Notes Start Date End Date Status Omeprazole 40 MG TAKE 1 CAPSULE BY [facility] EVERY DAY Oral for 90 days Active Olmesartan Medoxomil 5 MG Oral for 90 Active Potassium Chloride ER 20 MEQ Oral for 90 Active Pravastatin Sodium 80 MG TAKE 1 TABLET B Y MOUTH EVERYDAY AT BEDTIME Oral for 90 Active buPROPion HCl ER (SR) 150 MG Oral for 90 Active SOCIAL HISTORY Tobacco Use: Social History Observation Description Date Details (start date - stop date) Former Smoker NA - NA Sex Assigned At : Social History Observation Description Sex Assigned At Unknown Tobacco Use/Smoking Question Answer Notes Patient is a former smoker Alcohol Screen Question Answer Notes Did you have a drink containing alcohol in the p ast year? No Points 0 Interpretation Negative PROBLEMS Problem Type ICD Code Onset Dates Problem Status W/U Status Risk SNOMED Code Notes Problem 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) Active confirmed 512641098 Problem Colon cancer screening (Z12.11) Active confirmed [id number] VITAL SIGNS BMI 25.29 kg/m2 04/05/2024 Blood pressure systolic 000 mm Hg 04/05/20 24 Blood pressure diastolic 00 mm Hg 024 Height 4 ft 11 in in 04/05/2024 Temperature 97.7 degrees Fahrenheit 04/05/20 24 Weight 125 lb 4 oz lbs 04/05/2024 Encounters Encounter Location Date Provider Diagnosis [facility] [address] [place] [address] 04/05/2024 Ze Solorio Jr 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 K22.70 and Colon cancer screening Z12.11 ASSESSMENTS Encounter Date Diagnosis Assessment Notes Treatment Notes Treatment Clinical Notes 04/05/2024 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 (ICD-10 - K22.70) Reich esophagus material was printed 04/05/2024 Colon cancer screening (ICD-10 - Z12.11) PLAN OF TREATMENT Medication Medication Name Sig Start Date Stop Date Notes Omeprazole 40 MG TAKE 1 CAPSULE BY [place] UT EVERY DAY Oral for 90 days Treatment Notes Assessment Notes 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 Ba rrett esophagus material was printed Next Appt Details Follow Up: 1 Year, Reason: Provider Name:Ze thornton Jr, 04/04/2025 09:00:00 AM, [address], [address], [place], [address], Progress Notes * Examination Category Sub-Category Detail Notes General Examination GENERAL APPEARANCE: in no ac qawalangin distress HEAD: normocephalic EYES: sclera non-icteric NECK/THYROID: no lymphadenopathy HEART: S1, S2 normal, no mu rmurs CHEST: normal shape and exp ansion LUNGS: clear to auscultatio n bilaterally ABDOMEN: soft, nontender, non distended, bowel sounds present, no organomegaly SKIN: anicteric EXTREMITIES: no clubbing, cyanosi s, or edema PSYCH: cognitive function i ntact ORAL CAVITY: mucosa moist
--- OUTSIDE RECORDS SUMMARY | 2024-06-24 02:27 | XMS_ITS ---
Author Organization [facility] Address [address] [place] [address] Care Team Providers Care Piece Presser Name Role Phone Aspen Navas MD Primary Care Provider Rama Solorio Jr, Ze Deluna [phone] Encounters Encounter Location Date Provider Diagnosis [facility] [address] [place] [address] 04/05/2024 Ze Solorio Jr PLAN OF TREATMENT Next Appt Details Provider Name:Ze thornton Jr, 04/04/2025 09:00:00 AM, [address], [address], [place], [address],
--- OUTSIDE RECORDS SUMMARY | 2024-06-24 02:27 | XMS_ITS | Patient Health Record ---
Author Organization [facility] Address [address] [place] [address] Care Team Providers Care Gold Leaf Layer Name Role Phone Aspen Navas MD Primary Care Provider Ze Almaguer Jr Unavailable ALLERGIES No Known Allergies REASON FOR REFERRAL No Information MEDICATIONS Medication SIG (Take, Route, Frequency, Duration) Notes Start Date End Date Status buPROPion HCl ER (SR) 150 MG Oral for 90 Active Omeprazole 40 MG TAKE 1 CAPSULE BY MO [facility] EVERY DAY Oral for 90 days Active Olmesartan Medoxomil 5 MG Oral for 90 Active Potassium Chloride ER 20 MEQ Oral for 90 Active Pravastatin Sodium 80 MG TAKE 1 TABLET B Y MOUTH EVERYDAY AT BEDTIME Oral for 90 Active IMMUNIZATIONS Vaccine Route Administration Date Status Comme nts Influenza Unknown 03/16/2024 Administered SOCIAL HISTORY Tobacco Use: Social History Observation [...] 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 [address] [facility] [address] [address] [facility] [address] [place] [address] 01/12/2024 Ze Solorio Jr [facility] [address] [place] [address] [place] [address] 04/05/2024 Ze Solorio Jr 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 K22.70 and Colon cancer screening Z12.11 [facility] [address] [place] [address] 04/05/2024 Ze Solorio Jr ASSESSMENTS Encounter Date Diagnosis Assessment Notes Treatment Notes Treatment Clinical Notes 04/05/2024 Colon cancer screening (ICD-10 - Z12.11) 04/05/2024 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 (ICD-10 - K22.70) Reich esophagus material was printed PLAN OF TREATMENT Next Appt Details Provider Name:Ze thornton Jr, 04/04/2025 09:00:00 AM, [address] [place] [address], [address], [place], [address], Insurance Providers Payer Name Payer Address Payer Phone Subscriber Number Group Number Insured Name Patient Relationship to Insured Coverage Start Date Coverage End Date [facility] [address] [place] [address] [phone] [id number] PARTHA COLLAZO Self - patient is the insured MEDICAL (GENERAL) HISTORY Medical History History ICD Code high blood pressure high cholesterol depression Reich's esophagus, EGD 06/03, no intes tinal metaplasia, 3-5 year followup Colonoscopy 03/02, normal, five-year foll owup Surgical History Surgery Date(Month/Year)
== END 2024-06-23 13:29 | disposition home or self-care (01) ==
LOC: HO.MAMMO 13:28
PROVIDERS: PCP Internal Medicine; Visit Provider Internal Medicine
DX: M81.0 Age-related osteoporosis without current pathological fracture (principal)
CPT/HCPCS: 77080

== ENCOUNTER 2024-09-24 13:22 | Outpatient (REF) | payer MEDICARE, SELFPAY ==
--- NOTE | ~2024-09-24 | XR_ITS ---
EXAMINATION: XR HAND AND WRIST COMPLETE RIGHT HISTORY: M79.643 - Pain in unspecified hand COMPARISON: There are no prior studies available for comparison. FINDINGS: Three views of the right hand are submitted. The bones are osteopenic. There is no fracture or dislocation. There is severe osteoarthritis of the DIP joints of the 2nd through 5th fingers with joint space narrowing and osteophyte formation. The soft tissues are unremarkable. XR/XR hand wrist RT IMPRESSION: Osteopenia. Severe osteoarthritis of the DIP joints. Electronically signed by: Siva Braun MD 09/24/2024 02:07 PM EDT
== END 2024-09-24 13:23 | disposition home or self-care (01) ==
LOC: HO.HMGCX 13:22
PROVIDERS: PCP Internal Medicine; Visit Provider Physician Assistant Medical
DX: M25.531 Pain in right wrist (principal); M79.641 Pain in right hand
CPT/HCPCS: 73110; 73130; 99212

== ENCOUNTER 2024-09-24 13:22 | Outpatient (AMB) | payer MEDICARE, SELFPAY ==
[2024-09-24 13:27] VITALS: BP 116/70; PULSE 73; O2SAT 96
--- NOTE | 2024-09-24 13:27 | AM.OFFWIN_ITS ---
Intake Vital Signs 09/24/24 13:27 Weight 132 lb BP 116/70 Blood Pressure Location Rt brachial Position Sitting Pulse 73 Pulse Source Pulse Oximeter Pulse Oximetry (%) 96 Oxygen Delivery Method Room Air Intake Visit Reasons: EP RT hand injury/not WC Intake Note: Patient here for right hand pain that has been present for almost 3 weeks. Patient Tobacco Use Status: Former Tobacco user Allergies No Known Allergies [No Known Allergies*] Allergy (Verified 09/24/24 13:33) Do you need a note to return to daycare/school/sports/work: No HPI HPI Comments History of Present Illness Details This is a 68-year-old female who presented to the walk-in clinic complaining of persistent right hand pain status post mechanical fall that occurred 2-3 weeks ago. Patient states she tripped and fell and landed on her right wrist/hand. Patient states her fall was truly mechanical and she denies any chest pain/shortness of breath or lightheadedness/dizziness prior to the fall. She states her right wrist was swollen and bruised following the fall and this has improved but her pain has persisted and seems to be worsened with wrist extension and bearing weight on the right hand. She denies any numbness/weakness/paresthesias of her right hand, wrist, or arm. She denies any elbow or shoulder pain. PENDING SALE TO [facility] Medical History (Updated 04/05/24 @ 16:00 by Carlyn Rodriguez PA-C) Personal history of nicotine dependence Diarrhea Upper abdominal pain Constipation Anxiety Lung nodule, multiple HTN (hypertension) Reich's esophagus Hemorrhoids Hiatal hernia Hyperlipidemia Surgical History History of esophagogastroduodenoscopy (EGD) H/O colonoscopy Family History Father Colon cancer Mother Colon cancer Social History Housing: House Alcohol intake: never Patient Tobacco Use Status: Former Tobacco user e-Cigarette/Vaping Use: Never Used Current occupational status: employed Cognitive needs: No Hearing needs: No Vision needs: Yes Review of Systems Const All systems reviewed & are unremarkable except as noted in HPI and below Reports no additional complaints Eyes Reports no additional complaints ENT Reports no additional complaints Card Reports no additional complaints Resp Reports no additional complaints GI Reports no additional complaints Reports no additional complaints Musc Reports no additional complaints Skin/Breast Reports system reviewed and no additional complaints, except as documented Neuro Reports no additional complaints Psych Reports no additional complaints Endo Reports no additional complaints Spencer/Lymph Reports no additional complaints Aller/Immun Reports no additional complaints Physical Exam Vital Signs: Last Vital Signs Pulse 73 09/24/24 13:27 BP 116/70 09/24/24 13:27 Pulse Ox 96 09/24/24 13:27 Oxygen Delivery Method Room Air 09/24/24 13:27 Const Other: Vital signs reviewed. Constitutional: Non-toxic appearing. No acute distress. Well-developed and well-nourished. HEENT: Normocephalic and atraumatic. Skin: Warm and dry. No rashes or lesions noted. Neck: Full and painless range of motion. No cervical lymphadenopathy. Cardio: Regular rate. No lower extremity edema. No JVD. Pulmonary: No respiratory distress. No accessory muscle usage. Gastrointestinal: Soft, nontender, and nondistended in all 4 quadrants. Musculoskeletal: There is mild tenderness to palpation at the right 1st CMC joint without significant tenderness to palpation of the radial styloid process. There is no tenderness to palpation of the proximal radius/ulna and no tenderness to palpation of the metacarpals or digits. Neuro: Alert and oriented x4. Cranial nerves 2-12 grossly intact. No focal deficits appreciated. Psych: Normal mood and affect. Assessment & Plan Assessment & Plan (1) Right wrist pain: Code(s): M25.531 - Pain in right wrist Plan: This is a 68-year-old female who presented to the walk-in clinic complaining of right wrist pain status post mechanical fall that occurred 2-3 weeks ago. On physical examination, there is mild tenderness to palpation of the right 1st CMC joint without any bony tenderness to palpation. An x-ray of the right wrist and right hand was obtained, which was negative for acute fracture or dislocation on my read. History and physical most consistent with right wrist sprain/strain. Patient was provided a wrist brace for additional support. Recommended supportive management such as rest/activity modification, ice to the area, elevation of the extremity, and acetaminophen/ibuprofen for pain management as long as patient has no medical contraindications. Patient advised to follow-up here for persistent or worsening symptoms. Patient verbalized understanding she is in agreement with the plan. Orders: Orders XR hand wrist RT Today M79.643 - Pain in unspecified hand Coding Level of Care Code Est Pt Level 3 (21083) Diagnoses Right wrist pain M25.531
--- OUTSIDE RECORDS SUMMARY | 2024-09-24 14:55 | XMS_ITS ---
Author Organization [facility] Address [address] [place] [address] Care Team Providers Care Personal Injury Specialist Name Role Phone Aspen Navas MD Primary Care Provider Ze Almaguer Jr Unavailable Allergies No Known Allergies REASON FOR VISIT Patient presents today for barretts esophagus Medications Medication SIG (Take, Route, Frequency, Duration) Notes Start Date End Date Status Omeprazole 40 MG TAKE 1 CAPSULE BY MO [facility] EVERY DAY Oral for 90 days Active Olmesartan Medoxomil 5 MG Oral for 90 Active Potassium Chloride ER 20 MEQ Oral for 90 Active Pravastatin Sodium 80 MG TAKE 1 TABLET B Y MOUTH EVERYDAY AT BEDTIME Oral for 90 Active buPROPion HCl ER (SR) 150 MG Oral for 90 Active Social History Tobacco Use: Social History Observation Description Date Details (start date - stop date) Former Smoker NA - NA Tobacco Use/Smoking Question Answer Notes Patient is a former smoker Alcohol Screen Question Answer Notes Did you have a drink containing alcohol in the p ast year? No Points 0 Interpretation Negative Problems Problem Type SNOMED Code ICD Code Onset Dates Problem Status W/U Status Risk Notes Problem [id number] 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) Active confirmed Problem 589526391 Colon cancer screening (Z12.11) Active confirmed Vital Signs Temperature 97.7 degrees Fahrenheit 04/05/20 24 Blood pressure systolic 000 mm Hg 04/05/20 24 Blood pressure diastolic 00 mm Hg 024 Height 4 ft 11 in in 04/05/2024 Weight 125 lb 4 oz lbs 04/05/2024 BMI 25.29 kg/m2 04/05/2024 Encounters Encounter Location Date Provider Diagnosis [facility] [address] [place] [address] 04/05/2024 Ze Solorio Jr 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 K22.70 and Colon cancer screening Z12.11 Assessments Encounter Date Diagnosis (ICD Code) Assessment Notes Treatment Notes Treatment Clinical Notes Section Notes 04/05/2024 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 (ICD-10 - K22.70) Reich esophagus material was printed We discussed Reich's esophagus today. We discussed gastroesophageal reflux disease today. We recommended she continue omeprazole. We will review her outside records as they become available. It is unclear why she was on Creon. Followup will be in one year. She will be due for colonoscopy at that time and upper endoscopy can be arranged as well. We discussed this today. 04/05/2024 Colon cancer screening (ICD-10 - Z12.11) We discussed Reich's esophagus today. We discussed gastroesophageal reflux disease today. We recommended she continue omeprazole. We will review her outside records as they become available. It is unclear why she was on Creon. Followup will be in one year. She will be due for colonoscopy at that time and upper endoscopy can be arranged as well. We discussed this today. Plan Of Treatment Medication Medication Name Sig Start Date Stop Date Notes Omeprazole 40 MG TAKE 1 CAPSULE BY [facility] EVERY DAY Oral for 90 days Treatment Notes Assessment Notes 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 Ba rrett esophagus material was printed Next Appt Details Follow Up: 1 Year, Reason: Provider Name:Ze thornton Jr, 04/04/2025 09:00:00 AM, [address] [facility] [facility], [address], [place], [address], Progress Notes * PARTHA COLLAZO ADOB:[birth year] (68 yo F)Acc No.[id number]:04/05/2024 Progress Notes Patient:?PARTHA COLLAZO Provider:?Ze Solorio MD :1955???Age:68 Y???Sex:Female D ate:04/05/2024 Address:[address] [place], [place] [id number] Pcp:Aspen Navas MD Subjective: * Chief Complaints: * ???1. Patient presents today for barretts esophagus. * HPI: ???New symptom(s):? Partha is a pleasant 68-year-old woman seen today in consultation. She has a history of Reich's esophagus, and last underwent upper endoscopy in 2020 which showed no intestinal metaplasia. We reviewed this today. She has no complaints of dysphagia, hematemesis, or melena. Weight and appetite have been stable. She continues on omeprazole 40 mg daily. This controls her reflux well. ?She also was prescribed Creon for unclear reasons and is currently not taking this. Outside records will be obtained and we will review them for her. ?Colonoscopy in February of 2020 was normal. Five-year followup was recommended because she has a family history of colon cancer. We reviewed this today. * ROS:?General/Constitutional:?Change in appetite?denies.?Fatigue?denies.?ENT:?Patient denies?difficulty swallowing.?Respiratory:?Patient denies?shortness of breath.?Cardiovascular:?Patient denies?chest pain.?Gastrointestinal:?Comments?See HPI for details.?Genitourinary:?Difficulty urinating?denies.?Incontinence?denies.?Musculoskeletal:?Patient denies?muscle aches.?Skin:?Patient denies?pruritis.?Neurologic:?Patient denies?low back pain.?Psychiatric:?Patient denies?mental or physical abuse.? * Medical History:?High blood pressure, High cholesterol, Depression, Reich's esophagus, EGD 06/03, no intestinal metaplasia, 3-5 year followup, Colonoscopy 03/02, normal, five-year followup. * Family History:?Father: dece ased, diagnosed with Colon cancer.?Mother: , diagnosed with Colon cancer.? No family history of liver cancer. * Social History:?Tobacco Use:?Tobacco Use/Smoking?Patient is a?former smoker.?Drugs/Alcohol:?Alcohol Screen?Did you have a drink containing alcohol in the past year??No,?Points?0,?Interpretation?Negative.?Miscellaneous:?Marital status: . Occupation: works full-time. * Medications:?Taking buPROPio n HCl ER (SR) 150 MG Tablet Extended Release 12 Hour Oral , Taking Olmesartan Medoxomil 5 MG Tablet Oral , Taking Pravastatin Sodium 80 MG Tablet TAKE 1 TABLET BY MOUTH EVERYDAY AT BEDTIME Oral , Taking Potassium Chloride ER 20 MEQ Tablet Extended Release Oral , Taking Omeprazole 40 MG Capsule Delayed Release TAKE 1 CAPSULE BY MOUTH EVERY DAY Oral , Discontinued Creon [id number] UNIT Capsule Delayed Release Particles Oral , Medication List reviewed and reconciled with the patient * Allergies:?N.K.D.A. Objective: * Vitals:?Wt: 125 lb 4 oz, Ht: 4 ft 11 in, BMI:25.29 Index, BP: 000/00 mm Hg, Temp: 97.7. * Examination: ???General Examination: ?GENERAL APPEARANCE:?in no acute distress.?HEAD:?normocephalic.?EYES:?sclera non-icteric.?ORAL CAVITY:?mucosa moist.?NECK/THYROID:?no lymphadenopathy.?SKIN:?anicteric.?HEART:?S1, S2 normal, no murmurs.?LUNGS:?clear to auscultation bilaterally.?CHEST:?normal shape and expansion.?ABDOMEN:?soft, nontender, nondistended, bowel sounds present, no organomegaly .?EXTREMITIES:?no clubbing, cyanosis, or edema.?PSYCH:?cognitive function intact.? Assessment: * Assessment: 1.?Reich's esophagus witho ut dysplasia - K22.70 (Primary)?2.?Colon cancer screening - Z12.11? We discussed Reich's esoph sofia today. We discussed gastroesophageal reflux disease today. We recommended she continue omeprazole. We will review her outside records as they become available. It is unclear why she was on Creon. Followup will be in one year. She will be due for colonoscopy at that time and upper endoscopy can be arranged as well. We discussed this today. Plan: * Treatment: * Procedure Codes:?3017F COLOR ECTAL CA SCREEN DOC REV, G9903 Pt scrn tbco id as non user, G9744 PATIENT NOT ELIG D/T ACTIVE DX HTN * Preventive Medicine:? ??Counseling:?Care goal follow-up plan:?Above Normal BMI Follow-up?Giving encouragement to exercise,?BMI management provided?Yes.? ??Urinary Incontinence:?Urinary Incontinence?Assessment:?Absent,?Plan of care documented:?No, reason not specified.? ??Screenings:?Fall Risk Screening?Fall Risk Assessment:?Two or more falls without injury in the past year.? * Follow Up:?1 Year * * Sign off status: Completed true * Provider:?Ze Solorio MD Date:?0 04/05/2024 Generated for Sonia marrufo/Tye/Mitchitting on:?09/24/2024 02:55 PM EDT History and Physical Notes * HPI (History of Present Illness) Category Sub-Category Detail Notes Category Not es New symptom(s) Partha is a pleasant 68-year-old woman seen today in consultation. She has a history of Reich's esophagus, and last underwent upper endoscopy in 2020 which showed no intestinal metaplasia. We reviewed this today. She has no complaints of dysphagia, hematemesis, or melena. Weight and appetite have been stable. She continues on omeprazole 40 mg daily. This controls her reflux well. She also was prescribed Creon for unclear reasons and is currently not taking this. Outside records will be obtained and we will review them for her. Colonoscopy in February of 2020 was normal. Five-year followup was recommended because she has a family history of colon cancer. We reviewed this today. Examination Category Sub-Category Detail Notes Category Not es General Examination GENERAL APPEARANCE: in no acute di stress HEAD: normocephalic EYES: sclera non-icteric NECK/THYROID: no lymphadenopathy HEART: S1, S2 normal, no mu rmurs CHEST: normal shape and exp ansion LUNGS: clear to auscultatio n bilaterally ABDOMEN: soft, nontender, non distended, bowel sounds present, no organomegaly SKIN: anicteric EXTREMITIES: no clubbing, cyanosi s, or edema PSYCH: cognitive function i ntact ORAL CAVITY: mucosa moist
--- OUTSIDE RECORDS SUMMARY | 2024-09-24 14:55 | XMS_ITS ---
Author Organization [facility] Address [address] [place] [address] Care Team Providers Care Superintendent Menagerie Name Role Phone Aspen Navas MD Primary Care Provider Rama Solorio Jr, Ze Deluna [phone] REASON FOR VISIT Patient presents today for barretts esophagus Encounters Encounter Location Date Provider Diagnosis [facility] [address] [facility] [address] [place] [address] 01/12/2024 Ze Solorio Jr Plan Of Treatment Next Appt Details Provider Name:Ze thornton Jr, 04/04/2025 09:00:00 AM, [address] [facility], [address], [place], [address], Progress Notes * PARTHA COLLAZO ADOB:[birth year] (68 yo F)Acc No.[id number]:01/12/2024 Progress Notes Patient:?PARTHA COLLAZO Provider:?Ze Solorio MD :1955???Age:68 Y???Sex:Female D ate:01/12/2024 Address:[address] [place], [place] [id number] Pcp:Aspen Navas MD Subjective: * Chief Complaints: * ???1. Patient presents today for barretts esophagus. * Medical History:? Objective: * Vitals:? Assessment: Plan: * Treatment: * * The named appointment provid er may or may not be the originator of this progress note, and it is not deemed complete until electronically signed by the appointment provider. Sign off status: Pending * Provider:?Ze Solorio MD Date:?0 01/12/2024 Generated for Sonia marrufo/Tye/Leyda on:?09/24/2024 02:55 PM EDT
--- OUTSIDE RECORDS SUMMARY | 2024-09-24 14:56 | XMS_ITS | Patient Health Record ---
Author Organization [facility] Address [address] [place] [address] Care Team Providers Care Carton Forming Machine Tender Name Role Phone Aspen Navas MD Primary Care Provider Ze Almaguer Jr Unavailable [phone] Allergies No Known Allergies Reason For Referral No Information Medications Medication SIG (Take, Route, Frequency, Duration) Notes Start Date End Date Status buPROPion HCl ER (SR) 150 MG Oral for 90 Active Omeprazole 40 MG TAKE 1 CAPSULE BY MO [facility] EVERY DAY Oral for 90 days Active Olmesartan Medoxomil 5 MG Oral for 90 Active Potassium Chloride ER 20 MEQ Oral for 90 Active Pravastatin Sodium 80 MG TAKE 1 TABLET B Y MOUTH EVERYDAY AT BEDTIME Oral for 90 Active Immunizations Vaccine Route Administration Date Status Comme nts Influenza Unknown 03/16/2024 Administered Social History Tobacco Use: Social History Observation [...] Problem Status W/U Status Risk Notes Problem 260088807 Colon cancer screening (Z12.11) Active confirmed Problem 924965391 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) Active confirmed Vital Signs Temperature 97.7 degrees Fahrenheit 04/05/2024 Blood pressure diastolic 00 mm Hg 04/05/2024 Height 4 ft 11 in in 04/05/2024 Blood pressure systolic 000 mm Hg 04/05/2024 Weight 125 lb 4 oz lbs 04/05/2024 BMI 25.29 kg/m2 04/05/2024 Encounters Encounter Location Date Provider Diagnosis [facility] [address] [place] [address] 04/05/2024 Ze Solorio Jr 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 K22.70 and Colon cancer screening Z12.11 [facility] [address] [facility] [address] [place] [address] 04/05/2024 Ze [place] Assessments Encounter Date Diagnosis (ICD Code) Assessment Notes Treatment Notes Treatment Clinical Notes Section Notes 04/05/2024 Colon cancer screening (ICD-10 - [...] as well. We discussed this today. 04/05/2024 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 (ICD-10 - [...] We discussed this today. Plan Of Treatment Next Appt Details Provider Name:Ze thornton Jr, 04/04/2025 09:00:00 AM, [address] [place] [address], [address], [place], [address], Insurance Providers Payer Name Payer Address Payer Phone Subscriber Number Group Number Insured Name Patient Relationship to Insured Coverage Start Date Coverage End Date [facility] [address] [place] [address] [id number] PARTHA COLLAZO Self - patient is the insured Medical (General) History Medical History History ICD Code high blood pressure high cholesterol depression Reich's esophagus, EGD 06/03, no intes tinal metaplasia, 3-5 year followup Colonoscopy 03/02, normal, five-year foll owup Surgical History Surgery Date(Month/Year)
--- OUTSIDE RECORDS SUMMARY | 2024-09-24 14:56 | XMS_ITS ---
Author Organization [facility] Address [address] [place] [address] Care Team Providers Care Furniture Sprayer Name Role Phone Aspen Navas MD Primary Care Provider Ze Almaguer Jr Encounters Encounter Location Date Provider Diagnosis [facility] [address] [place] [address] 04/05/2024 Ze Solorio Jr Plan Of Treatment Next Appt Details Provider Name:Ze thornton Jr, 04/04/2025 09:00:00 AM, [address], [address], [place], [address], Progress Notes * PARTHA COLLAZO ADOB:[birth year] (68 yo F)Acc No.[id number]:04/05/2024 Patient:?PARTHA COLLAZO :1955???Age:68 Y???Sex:Female Address:[address] [place] [address], [address] Subjective: * Chief Complaints: * ??? * Medical History:? * Surgical History:? * Hospitalization/Major Diagno stic Procedure:? * Medications:? Objective: Assessment: Plan: * Treatment: * Procedure Codes:? * Preventive Medicine:? ??Screenings:?Fall Risk Screening?Plan of Care:?Documented,?Type of fall plan of care:?Balance, strength and gait training or instruction provided.? * true * Date:? Generated for Aliciai niru/Tye/eTransmitting on:?09/24/2024 02:56 PM EDT
== END 2024-09-24 14:10 | disposition home or self-care (01) ==
PROVIDERS: PCP Internal Medicine; Visit Provider Physician Assistant Medical
DX: M25.531 Pain in right wrist (principal)

== ENCOUNTER → 2024-09-24 13:45 | Outpatient (BNV) | payer MEDICARE, SELFPAY | PROVIDERS: PCP Internal Medicine; Visit Provider Radiology Diagnostic Radiology | DX: M19.041 Primary osteoarthritis, right hand (principal) | CPT/HCPCS: 73130 ==

== ENCOUNTER 2024-11-17 14:58 | Outpatient (REF) | payer MEDICARE, SELFPAY ==
--- OUTSIDE RECORDS SUMMARY | 2024-11-17 16:02 | XMS_ITS ---
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) Active confirmed Problem 952842750 Colon cancer screening (Z12.11) Active confirmed Vital Signs Temperature 97.7 degrees Fahrenheit 04/05/20 24 Blood pressure systolic 000 mm Hg 04/05/20 24 Blood pressure diastolic 00 mm Hg 024 Height 4 ft 11 in in 04/05/2024 Weight 125 lb 4 oz lbs 04/05/2024 BMI 25.29 kg/m2 04/05/2024 Encounters Encounter Location Date Provider Diagnosis [facility] [address] [place] [address] 04/05/2024 Ze Solorio Jr Reich's esophagus without [...] Omeprazole 40 MG TAKE 1 CAPSULE BY [facility] EVERY DAY Oral for 90 days Treatment Notes Assessment Notes 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 Ba rrett esophagus material was printed Next Appt Details Follow Up: 1 Year, Reason: Provider Name:Ze thornton Jr, 04/04/2025 09:00:00 AM, [address] [facility], [address], [place], [address], Progress Notes * APRTHA COLLAZO ADOB:[birth year] (68 yo F)Acc No.[id number]:04/05/2024 Progress Notes Patient:?PARTHA COLLAZO Provider:?Ze Solorio MD :1955???Age:68 Y???Sex:Female D ate:04/05/2024 Address:[address] [place], [place] [id number] Pcp:Aspen Navas MD Subjective: * Chief Complaints: [...] MOUTH EVERY DAY Oral , Discontinued Creon [id number] UNIT Capsule Delayed Release Particles Oral , [...] MD Date:?0 04/05/2024 Generated for Sonia marrufo/Tye/Mitchitting on:?11/17/2024 04:02 PM EDT History and Physical Notes * [...]
--- OUTSIDE RECORDS SUMMARY | 2024-11-17 16:02 | XMS_ITS | Patient Health Record ---
Author Organization [facility] Address [address] [place] [address] Care Team Providers Care Card Hanger Name Role Phone Aspen Navas MD Primary Care Provider Ze Almaguer Jr Unavailable Allergies No Known Allergies Reason For Referral No Information Medications Medication SIG (Take, Route, Frequency, Duration) Notes Start Date End Date Status buPROPion HCl ER (SR) 150 MG Oral for 90 Active Omeprazole 40 MG TAKE 1 CAPSULE BY MO [facility] EVERY DAY Oral for 90 [...] Problem Status W/U Status Risk Notes Problem [id number] Colon cancer screening (Z12.11) Active confirmed Problem [id number] 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) Active confirmed Vital Signs Temperature 97.7 degrees Fahrenheit 04/05/2024 Blood pressure diastolic 00 mm Hg 04/05/2024 Height 4 ft 11 in in 04/05/2024 Blood pressure systolic 000 mm Hg 04/05/2024 Weight 125 lb 4 oz lbs 04/05/2024 BMI 25.29 kg/m2 04/05/2024 Encounters Encounter Location Date Provider Diagnosis [facility] [address] [place] [address] 04/05/2024 Ze Solorio Jr 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 K22.70 and Colon cancer screening Z12.11 [facility] [address] [facility] [address] [place] [address] 04/05/2024 Ze [place] Assessments Encounter Date [...] Provider Name:Ze thornton Jr, 04/04/2025 09:00:00 AM, [address] [place] [address], [address], [place], [address], Insurance Providers Payer Name Payer Address Payer Phone Subscriber Number Group Number Insured Name Patient Relationship to Insured Coverage Start Date Coverage End Date [facility] [address] [place] [address] [phone] [id number] PARTHA COLLAZO Self - patient is the insured Medical (General) History Medical History History ICD Code high blood pressure high cholesterol depression Reich's esophagus, EGD 06/03, no intes tinal metaplasia, 3-5 year followup Colonoscopy 03/02, normal, five-year foll owup Surgical History Surgery Date(Month/Year)
--- OUTSIDE RECORDS SUMMARY | 2024-11-17 16:02 | XMS_ITS ---
Author Organization [facility] Address [address] [place] [address] Care Team Providers Care Computer Systems Manager Name Role Phone Aspen Navas MD Primary Care Provider Rama Solorio Jr, Ze Deluna REASON FOR VISIT Patient presents today for barretts esophagus Encounters Encounter Location Date Provider Diagnosis [facility] [address] [facility] [address] [place] [address] 01/12/2024 Ze Solorio Jr Plan Of Treatment Next Appt Details Provider Name:Ze thornton Jr, 04/04/2025 09:00:00 AM, [address] [facility], [address], [place], [address], Progress Notes * PARTHA COLLAZO ADOB:[birth year] (69 yo F)Acc No.[id number]:01/12/2024 Progress Notes Patient:?PARTHA COLLAZO Provider:?Ze Solorio MD :1955???Age:68 Y???Sex:Female D ate:01/12/2024 Address:[address] [place], [place] [id number] Pcp:Aspen Navas MD Subjective: * Chief Complaints: [...] MD Date:?0 01/12/2024 Generated for Sonia marrufo/Tye/Leyda on:?11/17/2024 04:02 PM EDT
--- OUTSIDE RECORDS SUMMARY | 2024-11-17 16:02 | XMS_ITS ---
Author Organization [facility] Address [address] [place] [address] Care Team Providers Care Fur Joiner Name Role Phone Aspen Navas MD Primary Care Provider Ze Almaguer Jr Encounters Encounter Location Date Provider Diagnosis [facility] [address] [place] [address] 04/05/2024 Ze Solorio Jr Plan Of Treatment Next Appt Details Provider Name:Ze thornton Jr, 04/04/2025 09:00:00 AM, [address], [address], [place], [address], Progress Notes * PARTHA COLLAZO ADOB:[birth year] (68 yo F)Acc No.[id number]:04/05/2024 Patient:?PARTHA COLLAZO :1955???Age:68 Y???Sex:Female Address:[address] [place] [address], [address] Subjective: * Chief Complaints: * ??? * Medical History:? * Surgical History:? * Hospitalization/Major Diagno stic Procedure:? * Medications:? Objective: Assessment: Plan: * Treatment: * Procedure Codes:? * Preventive Medicine:? ??Screenings:?Fall Risk Screening?Plan of Care:?Documented,?Type of fall plan of care:?Balance, strength and gait training or instruction provided.? * true * Date:? Generated for Aliciai niru/Tye/eTransmitting on:?11/17/2024 04:02 PM EDT
== END 2024-11-17 14:59 | disposition home or self-care (01) ==
LOC: HO.MAMMO 14:58
PROVIDERS: PCP Internal Medicine; Visit Provider Internal Medicine
DX: Z12.31 Encounter for screening mammogram for malignant neoplasm of breast (principal)
CPT/HCPCS: 77063; 77067

== ENCOUNTER → 2024-11-17 15:30 | Outpatient (BNV) | payer MEDICARE, SELFPAY | PROVIDERS: PCP Internal Medicine; Visit Provider Internal Medicine | DX: Z12.31 Encounter for screening mammogram for malignant neoplasm of breast (principal) | CPT/HCPCS: 77063; 77067 ==

== ENCOUNTER 2025-02-17 19:17 | Emergency (ER) | payer MEDICARE, SELFPAY ==
--- NOTE | 2025-02-17 19:44 | ED.GENADULT ---
HPI - General Adult General Chief complaint: General Medical Stated complaint: trouble swallowing,sore throat Time Seen by Provider: 02/18/25 00:04 Source: patient Mode of arrival: ambulatory Limitations: no limitations History of Present Illness ED Provider: Dr. Batool Grissom HPI narrative: Patient comes to the emergency room complaining of sore throat for couple of days. Patient states that she thought she had difficulty swallowing, while it is not some much difficulty it is just discomfort. Patient denies food getting stuck in the throat, denies having trouble swallowing food or liquids. Patient denies fever chills Related Data Previous Rx's ?Medication ?Instructions ?Recorded hydrocortisone 2.5 % topical cream 1 appl [place] BID PRN hemorrhoids #30 08/08/23 with perineal applicator grams (Proctosol HC) [id number] 1 cap PO .tidac #90 caps 08/08/23 6,000-19,000-30,000 unit capsule,delayed rel (Creon) bupropion HCl 150 mg tablet,12 hr 150 mg PO BID #180 caps 02/20/24 sustained-release olmesartan 5 mg tablet 5 mg PO BEDTIME #90 tabs 03/27/24 pravastatin 80 mg tablet 80 mg PO BEDTIME #90 tabs 03/27/24 omeprazole 40 mg capsule,delayed 40 mg PO DAILY #90 caps 04/05/24 release zoledronic acid 5 mg/100 mL in See Rx Instructions IV ONCE #100 mL 07/02/24 mannitol 5 %-water intravenous piggybck (Reclast) potassium chloride 20 mEq 20 meq PO DAILY #90 tabs 01/27/25 tablet,extended release Allergies Allergy/AdvReac Type Severity Reaction Status Date / Time No Known Allergies (No Known Allergy Verified 02/17/25 19:46 Allergies*) Review of Systems Review of Systems: Constitutional : No Weight loss, No Fever, No Chills, No Night Sweats, No Fatigue, No Malaise ENT/Mouth : No Hearing loss, No Ear Pain, No Nasal Congestion, No Sinus Pain, No Hoarseness, complaining of sore throat, No Rhinorrhea, No Swallowing Difficulty Eyes: No Eye Pain, No Swelling, No Redness, No Foreign Body, No Discharge, No Vision Changes Cardiovascular : No Chest Pain, No SOB, No Dyspnea on Exertion, No Orthopnea, No Edema, No Palpitations Respiratory : No Cough, No Sputum, No Wheezing, No Smoke Exposure, No Dyspnea Gastrointestinal : No Nausea, No Vomiting, No Diarrhea, No Constipation, No abdominal Pain, No Hematochezia, No Melena Genitourinary : no irregular bleeding, No Dysuria, No Urinary Frequency, No Hematuria, No Urinary Incontinence, No Urgency, No Flank Pain, No Urinary Flow Changes, No Hesitancy Musculoskeletal : No joint pain, No Myalgias, No Joint Swelling Skin : No Skin Lesions, No rash Neuro : No Weakness, No Numbness, No Paresthesias, No Loss of Consciousness, No Dizziness, No Headache Psych : No Anxiety/Panic, No Depression, No SI/HI/AH/VH, No Social Issues, Heme/Lymph: No Bruising, No Bleeding,No Lymphadenopathy Endocrine : No Polyuria, No Polydipsia, No Temperature Intolerance PMFSH Past Medical History Medical History Personal history of nicotine dependence Diarrhea Upper abdominal pain Constipation Anxiety Lung nodule, multiple HTN (hypertension) Reich's esophagus Hemorrhoids Hiatal hernia Hyperlipidemia Surgical History History of esophagogastroduodenoscopy (EGD) H/O colonoscopy Family History Family History Father Colon cancer Mother Colon cancer Social History Social History Housing: House Alcohol intake: never Patient Tobacco Use Status: Former Tobacco user e-Cigarette/Vaping Use: Never Used Advance Directives: Yes Advance Directives Information Provided: No Advance Directives on File: No Current occupational status: employed Cognitive needs: No Hearing needs: No Vision needs: Yes Physical Exam ED Exam Exam: Appearance: Alert. Oriented X3. No acute distress. Eyes: Pupils equal, round and reactive to light. ENT: Pharynx mildly erythematous, palatine tonsils within normal limits, uvula midline, no visualized abscesses, no exudates Neck: Normal inspection. Neck supple. No lymph nodes noted. No crepitus CVS: Normal heart rate and rhythm. Pulses normal. Normal S1 and S2 Respiratory: No respiratory distress. Breath sounds normal. No Wheezing. No rales Abdomen: Soft and nontender. No rigidity. No distention. Skin: Skin warm and dry. Normal skin color. Normal skin turgor. Extremities: No lower extremity edema. No Lacerations. No Rash Neuro: Oriented X 3. No motor deficit. No sensory deficit. Moving all extremities. No slurred speech. CN 2 through 12 grossly intact Psych: calm, cooperative, normal affect Vital Signs: Vital Signs - 24 hr 02/17/25 19:45 02/17/25 22:41 Temperature 98.1 F 98.1 F Pulse Rate 73 64 Respiratory Rate 16 17 Blood Pressure 133/58 L 122/58 L Pulse Oximetry 97 98 Oxygen Delivery Method Room Air Room Air BMI result Body Mass Index 25.6 Course Course Course Narrative: This is a rapid medical exam performed by Minerva Munson NP: Additional HPI, ROS, PE not included below will be deferred to primary provider. Patient is a 69-year-old female with history of Reich's esophagus, GERD, HTN, HLD, smoker x 30 years, but has not smoked for past 10 years presenting to the ED with complaint of sore throat and difficulty swallowing. States her symptoms have been ongoing for years but felt worse today. States she hasn't been sticking to her GI diet very strictly. Plan: strep and viral swabs Medical Decision Making Medical Decision Making [facility] Narrative: My interpretation of labs: No significant abnormality in patient's labs, negative for influenza, COVID, RSV and strep For symptomatic relief, patient was given a dose of viscous lidocaine and Decadron. Antibiotics are not indicated Patient agrees with plan Lab Data Labs: Lab Results 02/17/25 Range/Units 20:24 Influenza Type A (PCR) NEGATIVE (Negative) Influenza Type B (PCR) NEGATIVE (Negative) RSV RNA Qual (PCR) NEGATIVE (Negative) SARS-CoV-2 RNA (RT-PCR) NEGATIVE (Negative) S. pyogenes GrpA SARI Negative (Negative) Discharge Plan Discharge Clinical Impression: Pharyngitis Patient Disposition: Home, Self-Care Instructions: Pharyngitis (ED) Additional Instructions: Please follow-up with your primary care physician tomorrow. If you have any worsening or new symptoms, please return to the emergency room or call 911 Prescriptions: No Action bupropion HCl 150 mg tablet sustained-release 12 hr 150 mg PO BID Qty: 180 3RF pravastatin 80 mg tablet 80 mg PO BEDTIME Qty: 90 3RF olmesartan 5 mg tablet 5 mg PO BEDTIME Qty: 90 3RF omeprazole 40 mg capsule,delayed release(DR/EC) 40 mg PO DAILY Qty: 90 2RF zoledronic [id number] [Reclast] 5 mg/100 mL piggyback See Rx Instructions IV ONCE Qty: 100 0RF Rx Instructions: 5 mg intravenously once; potassium chloride 20 mEq tablet extended release 20 meq PO DAILY Qty: 90 1RF Creon 6,000-19,000 -30,000 unit capsule,delayed release(DR/EC) 1 cap PO .tidac Qty: 90 6RF Rx Instructions: do not exceed 10,000 unit/kg lipase per 24 hrs hydrocortisone [Proctosol HC] 2.5 % cream with perineal applicator 1 appl IL BID PRN (Reason: hemorrhoids) Qty: 30 3RF Print Language: [place] Zealander
[2025-02-17 19:45] VITALS: BP 133/58; PULSE 73; RESP 16; TEMP 36.7; O2SAT 97; BMI 25.6
[2025-02-17 20:42] LABS: IDNOW Serial# 6674DD1D; Strep A Nucleic Acid Negative (Negative)
[2025-02-17 21:07] LABS: Resp Syncy Virus RNA Qual PCR NEGATIVE (Negative); SARS COV2 PCR INHOUSE NEGATIVE (Negative)
[2025-02-17 22:41] VITALS: BP 122/58; PULSE 64; RESP 17; TEMP 36.7; O2SAT 98
[2025-02-18] MEDS: Lidocaine HCl Viscous 2 % 15 ML SOLUTION MUCOUS MEM (00:24)
[2025-02-18 00:27] VITALS: BP 122/58; PULSE 64; RESP 17; TEMP 36.7; O2SAT 98
== END 2025-02-18 00:28 | disposition home or self-care (01) ==
PROVIDERS: Registered Nurse Emergency; Emergency Provider Emergency Medicine; PCP Internal Medicine
DX: J02.9 Acute pharyngitis, unspecified (principal)
CPT/HCPCS: 87637; 87651; 99283; J1100

== ENCOUNTER 2025-02-21 07:53 | Outpatient (AMB) | payer MEDICARE, SELFPAY ==
--- OUTSIDE RECORDS SUMMARY | 2024-01-12 06:40 | XMS_ITS ---
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 Encounters Encounter Location Date Provider Diagnosis [facility] 10 [facility] [address] [place] [phone] 01/12/2024 Ze Solorio Jr Plan Of Treatment Next Appt Details Provider Name:Ze thornton Jr, 04/04/2025 09:00:00 AM, [address] [facility], [address], [place], [address], Progress Notes * PARTHA COLLAZO ADOB:[birth year] (69 yo F)Acc No.[id number]:01/12/2024 Progress Notes Patient: PARTHA HOLGUIN Provider: Ayse Solorio MD :1955 A ge:68 Y S ex:Female Date:01/12/2024 Address:[address] [place], [place] [phone] Pcp:Aspen Navas MD Subjective: * Chief Complaints: [...] 01/12/2024 Generated for Sonia marrufo/Tye/Leyda on: 0 02/21/2025 07:54 AM EDT
[2025-02-21 08:11] VITALS: BP 108/66; PULSE 80; TEMP 36.8; O2SAT 98; BMI 24.8
--- NOTE | 2025-02-21 08:11 | MHC.OFFWIV ---
Intake Vital Signs 02/21/25 08:11 Height 4 ft 11 in Weight 123 lb BMI 24.8 BP 108/66 Blood Pressure Location Rt brachial Position Sitting Pulse 80 Pulse Source Pulse Oximeter Temp 98.2 F Temp Source Oral Pulse Oximetry (%) 98 Oxygen Delivery Method Room Air Intake Visit Reasons: EP on and off trouble swallowing/breathing Intake Note: pt is here for sporadic difficulty swallowing and breathing- onset a few days ago Patient Tobacco Use Status: Former Tobacco user Allergies No Known Allergies (No Known Allergies*) Allergy (Verified 02/21/25 08:12) Do you need a note to return to daycare/school/sports/work: No HPI HPI Comments History of Present Illness Details 69 y/o Female patient who presents to the walk in clinic with c/o Throat discomfort everytime she swallows foods or liquids. States her symptoms have been ongoing for years but felt worse lately. Denies food getting stuck in the throat, or pain swallowing food or liquids. Denies fever, chills, nausea, vomiting or CP. Patient with h/o Reich's esophagus, GERD, smoker x 30 years, but has not smoked for past 10 years. States she hasn't been sticking to her GI diet very strictly. She has an appointment with GI in May and does not want to wait that far. She was recently evaluated at our ED 02/17 for similar concern. [facility] Medical History (Updated 02/21/25 @ 09:21 by Sandra Conroy NP) Acute pharyngitis Personal history of nicotine dependence Diarrhea Upper abdominal pain Constipation Anxiety Lung nodule, multiple HTN (hypertension) Reich's esophagus Hemorrhoids Hiatal hernia Hyperlipidemia Surgical History History of esophagogastroduodenoscopy (EGD) H/O colonoscopy Family History Father Colon cancer Mother Colon cancer Social History Housing: House Alcohol intake: never Patient Tobacco Use Status: Former Tobacco user e-Cigarette/Vaping Use: Never Used Current occupational status: employed Cognitive needs: No Hearing needs: No Vision needs: Yes Review of Systems Const All systems reviewed & are unremarkable except as noted in HPI and below Physical Exam Vital Signs: Last Vital Signs Temp 98.2 F 02/21/25 08:11 Pulse 80 02/21/25 08:11 BP 108/66 02/21/25 08:11 Pulse Ox 98 02/21/25 08:11 Oxygen Delivery Method Room Air 02/21/25 08:11 BMI result Body Mass Index 24.8 Const General: no acute distress Nutritional Appearance: well nourished Orientation/consciousness: patient oriented x3 HEENT Head: Yes normocephalic Ears: external ears normal General nose exam: Normal external nose present Face and sinus: Yes sinuses nontender Mouth: tongue normal, oropharynx normal and moist mucous membranes Throat: Yes uvula midline Resp Effort & Inspection: normal respiratory effort Cardio Heart sounds: S1 normal heart sound present and S2 normal heart sound present Neuro General: patient oriented x3 Psych Speech and movement: Normal speech and movement present Assessment & Plan Assessment & Plan (1) Acute pharyngitis: Code(s): J02.9 - Acute pharyngitis, unspecified Qualifiers: Pharyngitis/tonsillitis etiology: unspecified etiology Qualified Code(s): J02.9 - Acute pharyngitis, unspecified Plan: Due to her h/o Reich's esophagus - follow up with GI as scheduled. Advised to follow her GI diet. Coding Level of Care Code Est Pt Level 4 (15349) Diagnoses Acute pharyngitis, unspecified etiology J02.9 Pharyngitis/tonsillitis etiology: unspecified etiology Time Spent (min) 20
== END 2025-02-21 08:47 | disposition home or self-care (01) ==
PROVIDERS: PCP Internal Medicine; Visit Provider Nurse Practitioner Family
DX: J02.9 Acute pharyngitis, unspecified (principal)

== ENCOUNTER → 2025-02-21 07:53 | Outpatient (BNVA) | payer MEDICARE, SELFPAY | PROVIDERS: PCP Internal Medicine; Visit Provider Nurse Practitioner Family | DX: K22.70 Barrett's esophagus without dysplasia (principal); K21.9 Gastro-esophageal reflux disease without esophagitis; J02.9 Acute pharyngitis, unspecified; R13.10 Dysphagia, unspecified; Z87.891 Personal history of nicotine dependence | CPT/HCPCS: 99212 ==

== ENCOUNTER 2025-02-25 12:13 | Emergency (ER) | payer MEDICARE, SELFPAY ==
--- OUTSIDE RECORDS SUMMARY | 2024-01-12 06:40 | XMS_ITS ---
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 10 [facility] [address] [place] [phone] 01/12/2024 Ze Solorio Jr Plan Of Treatment Next Appt Details Provider Name:Ze thornton Jr, 04/04/2025 09:00:00 AM, [address] [facility], [address], [place], [address], Progress Notes * PARTHA COLLAZO ADOB:[birth year] (69 yo F)Acc No.[id number]:01/12/2024 Progress Notes Patient: PARTHA HOLGUIN Provider: Ayse Solorio MD :1955 A ge:68 Y S ex:Female Date:01/12/2024 Address:[address] [place], [place] [phone] Pcp:Aspen Navas MD Subjective: * Chief Complaints: [...] 01/12/2024 Generated for Sonia marrufo/Tye/Leyda on: 0 02/25/2025 01:39 PM EDT
--- NOTE | ~2025-02-25 | XR_ITS ---
EXAMINATION: XR CHEST 2 VIEWS HISTORY: shortness of breath COMPARISON: Comparison is made with the prior examination dated 03/06/2017. FINDINGS: PA and lateral views of the chest are submitted. The lungs are expanded and clear. There is no pleural effusion, pneumothorax, or pulmonary vascular congestion. The heart is normal in size. There is mild degenerative disc disease of the spine. XR/XR chest 2V IMPRESSION: No acute cardiopulmonary abnormality. Electronically signed by: Siva Braun MD 02/25/2025 01:00 PM EDT
[2025-02-25 12:16] VITALS: BP 136/80; PULSE 83; RESP 18; TEMP 36.6; O2SAT 98; BMI 24.9
--- NOTE | 2025-02-25 12:17 | ED_ITS ---
HPI - SOB/Dyspnea General Chief Complaint: Upper Respiratory Symptoms Stated Complaint: Sob Time Seen by Provider: 02/25/25 13:09 Source: patient Mode of arrival: ambulatory Limitations: no limitations History of Present Illness ED Provider: Lidya Bethea APRN HPI Narrative: 69 yo female with PMH of barretts esophagus, GERD, HTN, HLD, former smoker here with complaints of years of shortness of breath, sore throat and FB sensation in throat. Has been seen by ENT with no findings. She has been seen by Joya Asif and has been taking a PPI for GERD, did a trial of diflucan last year but patient reports symptoms have never improved. Saw Dr Solorio and he felt this was GERD related. Patient did not felt they he had any additional guidance. She does reports she has been eating poorly fatty, greasy foods and since this her symptoms have gotten worse. She did call her GI (Joya Asif) and has an appt in one month. She made an appt with Dr Solorio for 4 months from now. She feels she may need another endoscopy. She has also seen her PCP for this and was prescribed an albuterol MDI with no relief. She was seen in this emergency room on February 17 for similar symptoms. She had negative strep and viral testing. She was sent home with a diagnosis of pharyngitis with recommendations to follow-up with her primary care doctor. Related Data Previous Rx's ?Medication ?Instructions ?Recorded hydrocortisone 2.5 % topical cream 1 appl MO BID PRN h emorrhoids #30 08/08/23 with perineal applicator grams (Proctosol HC) bupropion HCl 150 mg tablet,12 hr 150 mg PO BID #180 c aps 02/20/24 sustained-release olmesartan 5 mg tablet 5 mg PO BEDTIME #90 tabs pravastatin 80 mg tablet 80 mg PO BEDTIME #90 tabs omeprazole 40 mg capsule,delayed 40 mg PO DAILY #90 ca ps 04/05/24 release potassium chloride 20 mEq 20 meq PO DAILY #90 tabs tablet,extended release albuterol sulfate 90 mcg/actuation 2 puff inhalation Q 4-6H PRN 02/25/25 aerosol inhaler (Ventolin HFA) shortness of breath or wheezing #6.7 grams Allergies Allergy/AdvReac Type Severity Reaction Status Date / Time No Known Allergies (No Known Allergy Verified 02/25/25 12:24 Allergies*) Review of Systems Review of Systems: Yes all other systems are reviewed and are negative Constitutional: Constitutional: Reports no additional constitutional complaints, Denies body ache(s), Denies chills, Denies fever(s), Denies headache(s) and Denies weakness Eyes: Eyes: Reports no additional eye complaints and Denies change in vision ENT: Reports system reviewed and no additional complaints, except as documented, Denies dizziness, Denies headache(s), Denies nasal congestion, Denies nasal discharge, Denies neck pain and Reports sore throat Cardiovascular: Cardiovascular: Reports no additional cardiovascular complaints, Denies chest pain, Denies leg edema and Reports dyspnea Respiratory: Respiratory: Reports no additional respiratory complaints, Denies cough and Reports dyspnea Gastrointestinal: Gastrointestinal: Reports no additional gastrointestinal complaints, Denies abdominal pain, Denies diarrhea, Denies nausea and Denies vomiting Genitourinary: Genitourinary: Reports no additional female genitourinary complaints and Denies urinary incontinence Musculoskeletal: Musculoskeletal: Reports no additional musculoskeletal complaints, Denies back pain, Denies arthralgias, Denies joint swelling, Denies neck pain, Denies numbness and Denies tingling Integumentary/Breasts: Skin/Breast: Reports system reviewed and no additional complaints, except as docu and Denies rash Neurologic: Reports system reviewed and no additional complaints, except as documented, Denies Abnormal speech present, Denies dizziness, Denies headache(s), Denies numbness, Denies tingling and Denies weakness [facility] Past Medical History Attestation statement: The following information was validated with the patient. Source: old records reviewed and nursing notes reviewed Medical History Acute pharyngitis Personal history of nicotine dependence Diarrhea Upper abdominal pain Constipation Anxiety Lung nodule, multiple HTN (hypertension) Reich's esophagus Hemorrhoids Hiatal hernia Hyperlipidemia Surgical History History of esophagogastroduodenoscopy (EGD) H/O colonoscopy Family History Family History Father Colon cancer Mother Colon cancer Social History Social History Housing: House Alcohol intake: never Patient Tobacco Use Status: Former Tobacco user e-Cigarette/Vaping Use: Never Used Current occupational status: employed Cognitive needs: No Hearing needs: No Vision needs: Yes Physical Exam Vital Signs: Vital Signs: Last Vital Signs Temp 98 F 02/25/25 12:16 Pulse 83 02/25/25 12:16 Resp 18 02/25/25 12:16 BP 136/80 02/25/25 12:16 Pulse Ox 98 02/25/25 12:16 O2 Del Method Room Air 02/25/25 12:16 BMI result Body Mass Index 24.9 Const: General: cooperative, healthy appearing, comfortable and no acute distress Orientation/consciousness: patient oriented x3 Limitations: no limitations HEENT: Head: Yes normal to inspection Ears: hearing grossly normal bilaterally and TM's normal bilaterally General nose exam: Normal external nose present Face and sinus: Yes normal facial exam Mouth: Normal oral and palatal mucosa present Throat: Yes posterior oropharynx normal, Yes tonsils normal and Yes uvula midline Eyes: General: appearance normal, both eyes and all related structures Pupils: Equal, round and reactive pupils present Neck: Neck: Yes normal visual inspection, Yes full ROM, Yes no lymphadenopathy and Yes no meningeal signs Chest: Chest palpation & inspection: normal inspection of the chest Resp: Effort & Inspection: normal respiratory effort Auscultation: clear to auscultation bilaterally Cardio: Rate: regular rate Rhythm: regular rhythm Peripheral pulses: Peripheral pulses 2+ throughout GI: Inspection: Yes normal to inspection Palpation (GI): Soft to palpation and nontender Auscultation: normal bowel sounds Back/Spine/Pelvis: Thoracic/Lumbar Spine: thoracic and lumbar spine normal to inspection Skin: General skin exam: no rashes or lesions noted Neuro: General: patient oriented x3, no meningeal signs, no focal motor deficits and normal sensation to monofilament Cranial nerves: Yes Equal, round and reactive pupils present Cognition (Neuro): normal cognition Speech: No Abnormal speech present Gait exam (Neuro): Normal gait present Motor exam (neuro): 5/5 motor strength present throughout Extrem: General: Yes normal to inspection, Yes no calf tenderness and Yes normal gait Course Course Course Narrative: Lidya Bethea APRN 02/25/25 1256 This is a rapid medical exam. Deferred additional HPI, ROS, PE to primary provider. 69 yo female with history of barrets esophagus, GERD, HTN, HLD, former smoker here with complaints of years of sore throat, FB sensation in throat, shortness of breath. Will order x-rays. VSS Medical Decision Making Medical Decision Making MDM Narrative: 69 yo female with PMH of barretts esophagus, GERD, HTN, HLD, former smoker here with complaints of years of shortness of breath, sore throat and FB sensation in throat. Has been seen by ENT with no findings. She has been seen by Joya Asif and has been taking a PPI for GERD, did a trial of diflucan last year but patient reports symptoms have never improved. Saw Dr Solorio and he felt this was GERD related. Patient did not felt they he had any additional guidance. She does reports she has been eating poorly fatty, greasy foods and since this her symptoms have gotten worse. She did call her GI (Joya Asif) and has an appt in one month. She made an appt with Dr Solorio for 4 months from now. She feels she may need another endoscopy. She has also seen her PCP for this and was prescribed an albuterol MDI with no relief. She was seen in this emergency room on February 17 for similar symptoms. She had negative strep and viral testing. She was sent home with a diagnosis of pharyngitis with recommendations to follow-up with her primary care doctor. Exam is benign. Lungs are clear. Vitals are stable. Patient is tolerating secretions with no difficulty. She reports no difficulty with eating or drinking. As far as her sore throat and globus sensation this may be secondary to her GERD or Reich's esophagus. She is tolerating secretions when difficulty. There is no signs of infection. There is no lymphadenopathy or meningeal signs. I recommend she continue her PPI. She may also take Maalox as needed. She should make dietary changes which I reviewed with her. 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 As far as her shortness of breath. She is speaking full sentences. Her lungs are clear. Her oxygen saturation is normal. There is no reports of chest pain, leg swelling, leg pain, fever, cough. I will give her an albuterol MDI trial. She may have underlying COPD from her smoking history. A chest x-ray ordered in triage shows no acute finding. I recommend she follow up with her primary care doctor for any continued symptoms Reviewed worrisome signs and symptoms of when to return to the emergency room. Comfortable plan for discharge home. Differential Diagnosis Differential Diagnoses: The differential diagnosis associated with the presentation includes See above Admission/Observation Consideration of admission/observation: Escalation of care including admission/observation considered See above Independent Interpretation I performed an independent interpretation of an: Plain X-Ray Interpretation: I independently viewed the x-ray and agree with the radiology report Radiology Impression Discussion of test interpretation with radiology: I have reviewed the radiol ogist's reading. Radiologist Impression: [place] [id number] XRay Report Signed Patient: Arleen Estevez MR#: [id number] : 1955 Acct:[id number] Age/Sex: 69 / F ADM Date: 02/25/25 Loc: .ED Attending Dr: Ordering Physician: Lidya Bethea NP Date of Service: 02/25/25 Procedure(s): XR chest 2V Accession Number(s): [id number] cc: Aspen Navas MD; Lidya Bethea NP~ EXAMINATION: XR CHEST 2 VIEWS HISTORY: shortness of breath COMPARISON: Comparison is made with the prior examination dated 03/06/2017. FINDINGS: PA and lateral views of the chest are submitted. The lungs are expanded and clear. There is no pleural effusion, pneumothorax, or pulmonary vascular congestion. The heart is normal in size. There is mild degenerative disc disease of the spine. XR/XR chest 2V IMPRESSION: No acute cardiopulmonary abnormality. 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 tube tuber machine operator as scheduled You may trial the albuterol inhaler Prescriptions: New albuterol sulfate [Ventolin HFA] 90 mcg/actuation HFA aerosol inhaler 2 puff inhalation Q4-6H PRN (Reason: shortness of breath or wheezing) Qty: 6.7 0RF No Action bupropion HCl 150 mg tablet sustained-release 12 hr 150 mg PO BID Qty: 180 3RF pravastatin 80 mg tablet 80 mg PO BEDTIME Qty: 90 3RF olmesartan 5 mg tablet 5 mg PO BEDTIME Qty: 90 3RF omeprazole 40 mg capsule,delayed release(DR/EC) 40 mg PO DAILY Qty: 90 2RF potassium chloride 20 mEq tablet extended release 20 meq PO DAILY Qty: 90 1RF hydrocortisone [Proctosol HC] 2.5 % cream with perineal applicator 1 appl MO BID PRN (Reason: hemorrhoids) Qty: 30 3RF Print Language: Mohawk
[2025-02-25 14:13] VITALS: BP 136/80; PULSE 83; RESP 18; TEMP 36.6; O2SAT 98
== END 2025-02-25 14:14 | disposition home or self-care (01) ==
LOC: HO.ED 13:37
PROVIDERS: Emergency Provider Emergency Medicine; PCP Internal Medicine
DX: K22.70 Barrett's esophagus without dysplasia (principal); R06.02 Shortness of breath; K21.9 Gastro-esophageal reflux disease without esophagitis
CPT/HCPCS: 71046; 99282; 99283

== ENCOUNTER → 2025-02-25 12:23 | Outpatient (BNV) | payer MEDICARE, SELFPAY | PROVIDERS: Emergency Provider Emergency Medicine; PCP Internal Medicine; Visit Provider Radiology Diagnostic Radiology | DX: R06.02 Shortness of breath (principal) | CPT/HCPCS: 71046 ==

== ENCOUNTER 2025-03-23 13:57 | Outpatient (REF) | payer MEDICARE, SELFPAY ==
[2025-03-23 14:54] LABS: MANUAL DIFF FLAG NO
[2025-03-23 16:25] LABS: Hematocrit 34.1 % (37.0-47.0); Hemoglobin 10.9 g/dl (12.0-16.0); Imm Gran Abs Auto 0.02 X10*3/uL (0.00-0.03); Imm Gran Pct Auto 0.3 % (0.0-0.4); Lymphocytes Absolute Auto 3.1 X10*3/uL (1.2-4.9); Mean Corpuscular HGB Conc 32.0 g/dl (31.0-35.0); Mean Corpuscular Hemoglobin 29.5 pg (27.0-33.0); Mean Corpuscular Volume 92.4 fL (80.0-98.0); NRBC Abs Auto 0.000 X10*3/uL (0.0-0.012); NRBC Pct Auto 0.0 /100WBC (0.0-0.2); Platelet Count 280 X10*3/uL (160-400); Red Blood Count 3.69 X10*6/uL (4.20-5.50); White Blood Count 6.6 X10*3/uL (4.8-10.8)
[2025-03-23 17:33] LABS: Alanine Aminotransferase 21 U/L (0-31); Albumin Level 4.5 g/dL (3.5-5.0); Alkaline Phosphatase 57 U/L (39-117); Anion Gap 12 (12-20); Aspartate Amino Transferase 31 U/L (5-31); Blood Urea Nitrogen 19 mg/dL (9-16); Calcium 9.3 mg/dL (8.4-10.2); Carbon Dioxide 26 mmol/L (22-29); Chloride 108 mmol/L (96-108); Cholesterol 218 mg/dL (<200); Estimated Glomerular Filt Rate > 60; HDL Cholesterol 74 mg/dL (>40); Potassium 4.4 mmol/L (3.3-5.1); Sodium 142 mmol/L (135-145); Total Protein 7.2 g/dL (6.5-8.0); Triglycerides 112 mg/dL (<150)
== END 2025-03-23 13:58 | disposition home or self-care (01) ==
LOC: HO.LAB 13:57
PROVIDERS: PCP Internal Medicine; Visit Provider Nurse Practitioner
DX: Z01.818 Encounter for other preprocedural examination (principal); K22.70 Barrett's esophagus without dysplasia; Z12.11 Encounter for screening for malignant neoplasm of colon; I10 Essential (primary) hypertension; M81.0 Age-related osteoporosis without current pathological fracture; E55.9 Vitamin D deficiency, unspecified; Z80.0 Family history of malignant neoplasm of digestive organs; Z79.899 Other long term (current) drug therapy
CPT/HCPCS: 36415; 80053; 80061; 82306; 85025; 99212

== ENCOUNTER 2025-03-23 13:57 | Outpatient (AMB) | payer MEDICARE, SELFPAY ==
--- OUTSIDE RECORDS SUMMARY | 2024-01-12 06:40 | XMS_ITS ---
Author Organization [facility] Address [address] [place] [address] Care Team Providers Care Advanced Manufacturing Technician Name Role Phone Aspen Navas MD Primary Care Provider Ze Almaguer Jr [phone] REASON FOR VISIT Patient presents today for barretts esophagus Encounters Encounter Location Date Provider Diagnosis [facility] [address] [facility] [address] [place] [phone] 01/12/2024 Ze Solorio Jr Plan Of Treatment Next Appt Details Provider Name:Ze thornton Jr, 04/04/2025 09:00:00 AM, [address] [facility], [address], [place], [address], Progress Notes * PARTHA COLLAZO ADOB:[birth year] (69 yo F)Acc No.[id number]:01/12/2024 Progress Notes Patient: PARTHA HOLGUIN Provider: Ayse Solorio MD :1955 A ge:68 Y S ex:Female Date:01/12/2024 Address:[address] [place], [place] [phone] Pcp:Aspen Navas MD Subjective: * Chief Complaints: [...] 01/12/2024 Generated for Sonia marrufo/Tye/Leyda on: 0 03/23/2025 05:03 PM EDT
--- NOTE | 2025-03-23 13:25 | A.OFFVIS_ITS ---
Vital Signs 03/23/25 14:05 Height 4 ft 11 in Weight 123 lb BMI 24.8 BP 97/42 L Blood Pressure Location Lt brachial Position Sitting Pulse 82 Pulse Oximetry (%) 97 Intake Visit Reasons: Reich's esophagus Intake Note: Patient follow up for Reich's esophagus. Patient cc: between diarrhea and constipation on and off, acid reflux, swallowing problems are better. Denies any other GI issues for today visit. 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 Required: No Accompanied by: Self / Same As Patient Allergies No Known Allergies (No Known Allergies*) Allergy (Verified 03/23/25 14:05) HPI HPI Reich's esophagus: Details: Assessment & Plan (1) Reich's esophagus: Comment: Sonia ring EGD 05/2018: neg for SSBE 02/2020 EGD biopsy aeb also negative for metaplasia 05/2021 EGD no need for further surveillance endoscopies unless the p atient becomes symptomatic Code(s): K22.70 - 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 (2) Bleeding hemorrhoids: Code(s): K64.9 - Unspecified hemorrhoids (3) GERD with esophagitis: Code(s): K21.00 - Gastro-esophageal reflux disease with esophagitis, without bleeding (4) Abdominal bloating: Code(s): R14.0 - Abdominal distension (gaseous) (5) Sigmoid colon mucosal prolapse: Code(s): K63.4 - Enteroptosis (6) Candidiasis of mouth and esophagus: Comment: suspected only tx empirically Code(s): B37.81 - Candidal esophagitis; B37.0 - Candidal stomatitis Plan She tells me today that she heard a ?pop? from her rectum and she is concerned that something is ?blocking my stool from coming out. ? Her 2019 colonoscopy did show a sigmoid prolapse with angulation so this could be part of the problem.This is only occurring occasionally. She is educated to keep her stools on the softer side r/t the prolapse and only consider surgery if the situation becomes unmanageable. She continues to have daily throat pain. She saw the ear nose throat and was told that everything was fine. Again also her Barretts is controls this does not seem to be from reflux. She does note that it seems to worsen when she has a lot of sugar and resolve when she avoid sugar-which she has some difficulty doing. This leads me to wonder if there is an element of esophageal Rebeca and I think it is worth it to try an empiric course of Diflucan to see if this improves her pain. She is advised to stop her statin for the duration of this therapy to reduce the possibility of myalgias. She continues on her Creon with good control of her bowels, her omeprazole with good control of her heartburn. ROV 6 mos. Medications: New fluconazole (Diflucan) 100 mg PO DAILY 14 days 14 tabs 0RF B37.0 - Candidal stomatitis, B37.81 - Candidal esophagitis Refilled [id number] 6,000-19,000 -30,000 unit (Creon) do not exceed 10,000 unit/kg lipase per 24 hrs 1 cap PO .tidac 90 caps 6RF K58.0 - Irritable bowel syndrome with diarrhea hydrocortisone 2.5% (Proctosol HC) 1 appl HI BID PRN 30 grams 3RF hemorrhoids K64.9 - Unspecified hemorrhoids omeprazole 40 mg PO DAILY 30 caps 6RF K21.00 - Gastro-esophageal reflux disease with esophagitis, without bleeding, K22.70 - 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 TODAYS VISIT [facility] Medical History Acute pharyngitis Personal history of nicotine dependence Diarrhea Upper abdominal pain Constipation Anxiety Lung nodule, multiple HTN (hypertension) Reich's esophagus Hemorrhoids Hiatal hernia Hyperlipidemia Surgical History History of esophagogastroduodenoscopy (EGD) H/O colonoscopy Family History Father Colon cancer Mother Colon cancer Social History Housing: House Alcohol intake: never Patient Tobacco Use Status: Former Tobacco user e-Cigarette/Vaping Use: Never Used Current occupational status: employed Cognitive needs: No Hearing needs: No Vision needs: Yes Review of Systems Const Denies fatigue, Denies fever(s), Denies night sweats, Denies poor appetite and Denies weight loss Eyes Details: glasses Reports requires corrective lenses ENT Reports Normal hearing present, Denies dental pain, Denies dysphagia, Denies hearing loss, Denies mouth pain, Reports odynophagia, Denies throat swelling, Denies tongue swelling and Reports other (Dentition adequate) Card Reports no additional complaints Resp Reports no additional complaints GI Details: Denies abdominal pain, Denies melena, Denies bloating, Denies hematochezia, Denies constipation, Denies GI cramping, Denies dysphagia, Denies excessive flatus, Denies early satiety, Reports heartburn, Denies diarrhea, Denies nausea, Reports odynophagia, Denies vomiting and Denies hematemesis Skin/Breast Denies pruritus, Denies lesions, Denies rash and Denies jaundice Neuro Reports Normal hearing present and Denies Abnormal speech present Endo Denies fatigue Aller/Immun Denies throat swelling and Denies tongue swelling Physical Exam Const General: cooperative, no acute distress, well developed and well groomed Nutritional Appearance: average body habitus and well nourished Orientation/consciousness: oriented to person, oriented to place and oriented to time Limitations: No language barrier HEENT Head: Yes normocephalic and Yes atraumatic Eyes General: appearance normal, both eyes and all related structures Pupils: Equal, round and reactive pupils present Neck Neck: Yes normal visual inspection and Yes no lymphadenopathy Thyroid: Thyroid normal Resp Effort & Inspection: normal respiratory effort and able to speak in complete sentences Auscultation: clear to auscultation bilaterally Cardio Rate: regular rate Rhythm: regular rhythm Heart sounds: Normal, physiologic split S2 sound present Peripheral pulses: radial pulses present and posterior tibial pulses present GI Inspection: No distended and No Abdominal panniculus present Palpation (GI): Soft to palpation, nontender, no guarding, not rigid and No hepatosplenomegaly present Percussion: Yes normal to percussion Auscultation: normal bowel sounds Rectal Exam - Female: deferred Skin General skin exam: no rashes or lesions noted, turgor normal, skin not dry, no jaundice, No spider nevi and no striae Rashes: no rashes Nails: normal Neuro General: oriented to person, oriented to place and oriented to time Cranial nerves: Yes Equal, round and reactive pupils present and Yes Normal hearing present Speech: No Abnormal speech present Extrem General: Yes normal to inspection, No clubbing, No cyanosis and No edema Psych Appearance: grossly normal and well kempt Mental Status: mental status grossly normal Speech and movement: Normal speech and movement present Affect: normal affect Attitude: cooperative Thought process: Normal thought process present and not confabulating Thought content: Normal thought content present Insight: Limited insight present (Psych) Judgement: Limited judgement present (Psych) Assessment & Plan Assessment & Plan (1) Reich's esophagus: Comment: Sonia finley EGD 05/2018: neg for SSBE 02/2020 EGD biopsy aeb also negative for metaplasia 05/2021 EGD no need for further surveillance endoscopies unless the patient becomes symptomatic Code(s): K22.70 - 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 Category: Medical (2) Family history of colon cancer in father: Comment: mother and father.2019 scope:internal hemorrhoids, Repeat asymptomatic screening in this patient would be 5 years. I would recommend due to the difficulty of the colonoscopic procedure that she will not have endoscopies and colonoscopy scheduled on the same day. This adds to postprocedure distention etc,. Code(s): Z80.0 - Family history of malignant neoplasm of digestive organs Category: Medical (3) Pre-op examination: Code(s): Z01.818 - Encounter for other preprocedural examination Category: Medical Plan She continues on her Creon with good control of her bowels, her omeprazole with good control of her heartburn. The trial of Diflucan did not affect her upper throat sensation of pain. Because of this I think will do a trial of sucralfate since she does have a history of Barretts esophagus and erosive esophagitis. She is also due for both the colonoscopy and the Barretts esophagus surveillance so we will get these studies ordered as well. She denies any cardiac or respiratory problems. There are no prior problems with anesthesia or sedation. There are no infectious disease problems. Both of her parents had colorectal cancer. Return office visit in 6 weeks to evaluate the affects of the sucralfate. She will likely be using [facility] since her insurance does not cover the liquid formation. Orders: Orders Complete Blood Count Auto Diff Today Z01.818 - Encounter for other preprocedural examination Comprehensive Met. Panel Today Z01.818 - Encounter for other preprocedural examination Referrals GI Procedure Notification K22.70 - 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, Z01.818 - Encounter for other preprocedural examination, Z80.0 - Family history of malignant neoplasm of digestive organs Medications: New sucralfate (Carafate) 10 mL PO BID 414 mL 0RF K22.70 - 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 peg 3350-electrolytes 236-22.74-6.74 -5.86 gram (Golytely) until fecal effluent is clear; do not exceed a total volume of 2,000 mL 240 mL PO Q10M 4,000 mL 0RF 1 day Z12.11 - Encounter for screening for malignant neoplasm of colon bisacodyl (Dulcolax (bisacodyl)) 10 mg (2 x 5 mg) PO BEDTIME 4 tabs 0RF 2 days Refilled 2 omeprazole 40 mg PO DAILY 90 caps 2RF K21.00 - Gastro-esophageal reflux disease with esophagitis, without bleeding, K22.70 - 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 Coding Level of Care Code Est Pt Level 4 (64160) Diagnoses Reich's esophagus K22.70 Family history of colon cancer in father Z80.0 Pre-op examination Z01.818 Time Spent (min) 36
[2025-03-23 14:05] VITALS: BP 97/42; PULSE 82; O2SAT 97; BMI 24.8
--- OUTSIDE RECORDS SUMMARY | 2025-03-23 17:04 | XMS_ITS | Patient Health Record ---
Author Organization [facility] Address [address] [place] [address] Care Team Providers Care Conductor Pullman Name Role Phone Aspen Navas MD Primary Care Provider Ze Almaguer Jr Unavailable Allergies No Known Allergies Reason For Referral No Information Medications Medication SIG (Take, Route, Frequency, Duration) Notes Start Date End Date Status buPROPion HCl ER (SR) 150 MG Oral for 90 Active Omeprazole 40 MG TAKE 1 CAPSULE BY MO [facility] EVERY DAY Oral for 90 days Active [...] Problem Status W/U Status Risk Notes Problem [id number] Colon cancer screening (Z12.11) Active confirmed Problem [id number] 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) Active confirmed Vital Signs Temperature 97.7 degrees Fahrenheit 04/05/2024 Blood pressure diastolic 00 mm Hg 04/05/2024 Height 4 ft 11 in in 04/05/2024 Blood pressure systolic 000 mm Hg 04/05/2024 Weight 125 lb 4 oz lbs 04/05/2024 BMI 25.29 kg/m2 04/05/2024 Encounters Encounter Location Date Provider Diagnosis [facility] [address] [place] [address] 04/05/2024 Ze Solorio Jr 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 K22.70 and Colon cancer screening Z12.11 [facility] [address] [place] [address] 04/05/2024 Ze [place] Assessments Encounter Date [...] Provider Name:Ze thornton Jr, 04/04/2025 09:00:00 AM, [address] [place] [address], [address], [place], [address], Insurance Providers Payer Name Payer Address Payer Phone Subscriber Number Group Number Insured Name Patient Relationship to Insured Coverage Start Date Coverage End Date [facility] [address] [place] [address] [phone] [id number] PARTHA COLLAZO Self - patient is the insured Medical (General) History Medical History History ICD Code high blood pressure high cholesterol depression Reich's esophagus, EGD 06/03, no intes tinal metaplasia, 3-5 year followup Colonoscopy 03/02, normal, five-year foll owup Surgical History Surgery Date(Month/Year)
== END 2025-03-23 14:35 | disposition home or self-care (01) ==
LOC: HO.HGI 13:57
PROVIDERS: PCP Internal Medicine; Visit Provider Nurse Practitioner
DX: Z01.818 Encounter for other preprocedural examination (principal); Z12.11 Encounter for screening for malignant neoplasm of colon; Z80.0 Family history of malignant neoplasm of digestive organs; K22.70 Barrett's esophagus without dysplasia
CPT/HCPCS: 99214

== ENCOUNTER 2025-03-29 08:17 | Outpatient (AMB) | payer MEDICARE, SELFPAY ==
--- OUTSIDE RECORDS SUMMARY | 2024-01-12 06:40 | XMS_ITS ---
Author Organization [facility] Address [address] [place] [phone] Care Team Providers Care Vp Informatics Name Role Phone Aspen Navas MD Primary Care Provider Ze Almaguer Jr [phone] REASON FOR VISIT Patient presents today for barretts esophagus Encounters Encounter Location Date Provider Diagnosis [facility] [address] [facility] [address] [place] [phone] 01/12/2024 Ze Solorio Jr Plan Of Treatment Next Appt Details Provider Name:Ze thornton Jr, 04/04/2025 09:00:00 AM, [address] [facility], [address], [place], [address], Progress Notes * PARTHA COLLAZO ADOB:[birth year] (69 yo F)Acc No.[id number]:01/12/2024 Progress Notes Patient: PARTHA HOLGUIN Provider: Ayse Solorio MD :1955 A ge:68 Y S ex:Female Date:01/12/2024 Address:[address] [place], [place] [id number] Pcp:Aspen Navas MD Subjective: * Chief Complaints: * 1 . Patient presents today for barretts esophagus. * Medical History: Objective: * Vitals: Assessment: Plan: * Treatment: * * The named appointment provid er may or may not be the originator of this progress note, and it is not deemed complete until electronically signed by the appointment provider. Sign off status: Pending * Provider: Ayse Solorio MD Date: 0 01/12/2024 Generated for Sonia marrufo/Tye/Leyda on: 0 03/29/2025 09:36 AM EDT
--- NOTE | 2025-03-29 08:24 | MHC.PC.OV ---
Vital Signs 03/29/25 08:31 Height 4 ft 11 in Weight 121 lb BMI 24.4 BP 110/68 Blood Pressure Location Lt brachial Position Sitting Respiration 18 Pulse 68 Pulse Source Pulse Oximeter Temp 98.5 F Temp Source Oral Pulse Oximetry (%) 96 Oxygen Delivery Method Room Air Intake Visit Reasons: Annual PE Intake Note: Pt is here today for PE. Allergies No Known Allergies (No Known Allergies*) Allergy (Verified 03/29/25 08:31) Medication List - Last Reconciled 03/29/25 by Aspen Navas MD albuterol sulfate 90 mcg/actuation (Ventolin HFA) 2 puffs inhalation Q4-6H PRN bisacodyl (Dulcolax (bisacodyl)) 10 mg (2 x 5 mg) PO BEDTIME 2 days bupropion HCl SR 150 mg PO BID hydrocortisone 2.5% (Proctosol HC) 1 appl SD BID PRN olmesartan 5 mg PO BEDTIME omeprazole 40 mg PO DAILY peg 3350-electrolytes 236-22.74-6.74 -5.86 gram (Golytely) 240 mL PO Q10M 1 day potassium chloride ER 20 mEq PO DAILY pravastatin 80 mg PO BEDTIME sucralfate (Carafate) 10 mL PO BID Tobacco use date assessed: 03/29/25 Fall risk assessment: No Falls in past year Last assessed Fall Risk: 03/29/25 Dental Screening Dental Screen Date: 03/29/25 Did you have a dental visit in the last 12 months?: Yes Did you have a dental problem in the last 6 months where you did not have access to dental care?: No Was dental information given to patient?: Patient has dentist HPI Annual PE HPI Details Pt presents for PE. PFSH Medical History (Updated 03/29/25 @ 09:50 by Aspen Navas MD) Acute pharyngitis Personal history of nicotine dependence Diarrhea Upper abdominal pain Constipation Anxiety Lung nodule, multiple HTN (hypertension) Reich's esophagus Hemorrhoids Hiatal hernia Hyperlipidemia Surgical History History of esophagogastroduodenoscopy (EGD) H/O colonoscopy Family History Father Colon cancer Mother Colon cancer Social History Housing: House Alcohol intake: never Patient Tobacco Use Status: Former Tobacco user e-Cigarette/Vaping Use: Never Used service: No Current occupational status: employed Cognitive needs: No Hearing needs: No Vision needs: Yes Questionnaire PHQ-9 Over the last 2 weeks, how often have you been bothered by any of the following problems? 1. Little interest or pleasure in doing things: nearly every day 2. Feeling down, depressed, or hopeless: nearly every day 3. Trouble falling or staying asleep, or sleeping too much: nearly every day 4. Feeling tired or having little energy: nearly every day 5. Poor appetite or overeating: nearly every day 6. Feeling bad about yourself - or that you are a failure or have let yourself or your family down: nearly every day 7. Trouble concentrating on things, such as reading the newspaper or watching television: more than half the days 8. Moving or speaking so slowly that other people could have noticed. Or the opposite - being so fidgety or restless that you have been moving around a lot more than usual: several days 9. Thoughts that you would be better off or of hurting yourself in some way: several days Total score: 22 Depression Screening Interpretation: Positive Depression Screening Done: Yes 72022 - PHQ-9 Billing: Yes Source: Developed by Drs. Siva Ozuna, Keyana Lopez, Bairon Stephenson and colleagues, with an educational christofer from [employer]. Thrive Questionnaire Date Thrive assessed: 03/29/25 I am a: Patient What is your living situation today?: I have a steady place to live Within the past 12 months, did the food you bought not last and you didn't have the money to get more?: Never true Within the past 12 months, did you worry whether your food would run out before you got money to buy more?: Never true Do you have trouble paying for medicines?: No Do you have trouble getting transportation to medical appointments?: No Do you have trouble paying your heating and electricity bill?: No Do you have trouble taking care of your child, family member or friend?: No Do you have trouble with day-to-day activities such as bathing, preparing meals, shopping, managing finances, etc.?: No Are you currently unemployed and looking for a job?: No Are you interested in more education?: No Please select the resources that you would like help with: None THRIVE Score: 0 PARAS-7 AMB Questionnaire PARAS-7 Date PARAS - 7 assessed: 03/29/25 Feeling nervous, anxious, or on edge: 2 = More than half the days Not being able to stop or control worryin = Not at all Worrying too much about different things: 0 = Not at all Trouble relaxin = More than half the days Being so restless that it is hard to sit still: 2 = More than half the days Becoming easily annoyed or irritable: 3 = Nearly every day Feeling afraid as if something awful might happen: 0 = Not at all Total PARAS-7 score (0-4 normal; 5-9 mild; 10-14 moderate; 15-21 severe): 9 Source: Developed by Drs. Siva Ozuna, Keyana Lopez, Bairon Stephenson and colleagues, with an educational christofer from [employer]. PARAS-7 Assessment Billing PARAS-7 Assessment Tool: PARAS-7 Assessment 72054 Review of Systems Const All systems reviewed & are unremarkable except as noted in HPI and below Eyes Reports no additional complaints ENT Reports no additional complaints Card Reports no additional complaints Resp Reports no additional complaints GI Reports no additional complaints Reports no additional complaints Physical exam (Primary Care) Vital Signs: Last Vital Signs Temp 98.5 F 03/29/25 08:31 Pulse 68 03/29/25 08:31 Resp 18 03/29/25 08:31 BP 110/68 03/29/25 08:31 Pulse Ox 96 03/29/25 08:31 Oxygen Delivery Method Room Air 03/29/25 08:31 BMI result Body Mass Index 24.4 Tobacco/Smoking Status: Tobacco use Status Tobacco use date assessed 03/29/25 03/29/25 08:39 Patient Tobacco Use Status Former Tobacco user 03/29/25 08:25 e-Cigarette/Vaping Use Never Used 03/29/25 08:25 Depression Screening Interpretation: Positive Thrive Assessment: Date of Thrive Assessment Date Thrive assessed 09/03/22 03/29/25 08:25 Const General: no acute distress HENMT Head: Yes normal to inspection Ears: TM's normal bilaterally Face and sinus: Yes normal facial exam Mouth: Normal oral and palatal mucosa present Eyes General: appearance normal, both eyes and all related structures Neck Neck: Yes no lymphadenopathy and Yes supple Resp Effort & Inspection: normal respiratory effort Auscultation: clear to auscultation bilaterally Cardio Rhythm: regular rhythm Heart sounds: S1 normal heart sound present and S2 normal heart sound present GI Inspection: Yes normal to inspection Palpation (GI): Soft to palpation Percussion: Yes normal to percussion Auscultation: normal bowel sounds Coding Level of Care Code Est Pt Prev Care >65y(92042) Diagnoses HTN (hypertension) I10 Hyperlipidemia E78.5 Osteoporosis M81.0 Reich's esophagus K22.70 Lung nodule, multiple R91.8 Additional Codes PARAS-7 Assessment Billing - PARAS-7 Assessment Tool: PARAS-7 Assessment 76095 ([id number]) PHQ-9 - 02559 - PHQ-9 Billing: Yes ([id number]) Assessment & Plan Assessment & Plan (1) HTN (hypertension): Code(s): I10 - Essential (primary) hypertension Category: Medical Plan: Continue olmesartan (2) Hyperlipidemia: Code(s): E78.5 - Hyperlipidemia, unspecified Category: Medical Plan: Continue pravastatin (3) Osteoporosis: Comment: DEXA 07/04 T score -3.6 in L spine, patient cannot tolerate Fosamax because of Reich's esophagus and chronic GERD. Reclast infusion 03/25/23, DEXA 07/06 T score -3.1 Code(s): M81.0 - Age-related osteoporosis without current pathological fracture Category: Medical Plan: Continue vitamin-D calcium and weight-bearing exercises start Prolia for 2 years and repeat DEXA (4) Reich's esophagus: Comment: Sonia finley EGD 05/2018: neg for SSBE 02/2020 EGD biopsy aeb also negative for metaplasia 05/2021 EGD no need for further surveillance endoscopies unless the patient becomes symptomatic Code(s): K22.70 - 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 Category: Medical Plan: Continue PPI follow-up with GI for repeat EGD and colonoscopy (5) Lung nodule, multiple: Comment: CT 02/2021, ex smoker, CT stable 12/02, recheck in 1 year, patient is in lung screening program. Code(s): R91.8 - Other nonspecific abnormal finding of lung field Category: Medical Plan: Follow-up in lung cancer screening Medications: New Prolia (denosumab) 60 mg subcut [id number] 1 mL 1RF NS Prolia (denosumab) 60 mg subcut [id number] 1 mL 1RF NS
[2025-03-29 08:31] VITALS: BP 110/68; PULSE 68; RESP 18; TEMP 36.9; O2SAT 96; BMI 24.4
--- OUTSIDE RECORDS SUMMARY | 2025-03-29 09:36 | XMS_ITS | Patient Health Record ---
Author Organization [facility] Address [address] [place] [address] Care Team Providers Care Hydraulic Riveter Name Role Phone Aspen Navas MD Primary Care Provider Ze Almaguer Jr Unavailable [phone] Allergies No Known Allergies Reason For Referral No Information Medications Medication SIG (Take, Route, Frequency, Duration) Notes Start Date End Date Status buPROPion HCl ER (SR) 150 MG Oral for 90 Active Omeprazole 40 MG TAKE 1 CAPSULE BY MO [facility] EVERY DAY Oral for 90 days [...] Problem Status W/U Status Risk Notes Problem 134432385 Colon cancer screening (Z12.11) Active confirmed Problem [id number] 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) Active confirmed Vital Signs Temperature 97.7 degrees Fahrenheit 04/05/2024 Blood pressure diastolic 00 mm Hg 04/05/2024 Height 4 ft 11 in in 04/05/2024 Blood pressure systolic 000 mm Hg 04/05/2024 Weight 125 lb 4 oz lbs 04/05/2024 BMI 25.29 kg/m2 04/05/2024 Encounters Encounter Location Date Provider Diagnosis [facility] [address] [place] [address] 04/05/2024 Ze Solorio Jr 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 K22.70 and Colon cancer screening Z12.11 [facility] [address] [place] [address] 04/05/2024 Ze [place] Assessments Encounter Date [...] Provider Name:Ze thornton Jr, 04/04/2025 09:00:00 AM, [address] [place] [address], [address], [place], [address], Insurance Providers Payer Name Payer Address Payer Phone Subscriber Number Group Number Insured Name Patient Relationship to Insured Coverage Start Date Coverage End Date [facility] [address] [place] [address] [id number] PARTHA COLLAZO Self - patient is the insured Medical (General) History Medical History History ICD Code high blood pressure high cholesterol depression Reich's esophagus, EGD 06/03, no intes tinal metaplasia, 3-5 year followup Colonoscopy 03/02, normal, five-year foll owup Surgical History Surgery Date(Month/Year)
== END 2025-03-29 09:28 | disposition home or self-care (01) ==
LOC: HO.HMCC 08:17
PROVIDERS: PCP Internal Medicine; Visit Provider Internal Medicine
DX: I10 Essential (primary) hypertension (principal); E78.5 Hyperlipidemia, unspecified; M81.0 Age-related osteoporosis without current pathological fracture; K22.70 Barrett's esophagus without dysplasia; R91.8 Other nonspecific abnormal finding of lung field; Z00.00 Encounter for general adult medical examination without abnormal findings

== ENCOUNTER → 2025-03-29 08:17 | Outpatient (BNVA) | payer MEDICARE, SELFPAY | PROVIDERS: PCP Internal Medicine; Visit Provider Internal Medicine | DX: I10 Essential (primary) hypertension (principal); E78.5 Hyperlipidemia, unspecified; M81.0 Age-related osteoporosis without current pathological fracture; K22.70 Barrett's esophagus without dysplasia; R91.8 Other nonspecific abnormal finding of lung field | CPT/HCPCS: 96127; 99397 ==

== ENCOUNTER 2025-05-10 11:53 | Outpatient (AMB) | payer MEDICARE, SELFPAY ==
[2025-05-10 12:03] VITALS: BP 140/63; PULSE 85; BMI 24.5
--- NOTE | 2025-05-10 12:03 | A.OFFVIS_ITS ---
Vital Signs 05/10/25 12:03 Height 4 ft 11 in Weight 121 lb 4.068 oz BMI 24.5 BP 140/63 H Blood Pressure Location Lt brachial Position Sitting Pulse 85 Intake Visit Reasons: throat burning eval caraate Intake Note: Arleen presents in the office as a follow up. CC: states the burning in the throaqt has gotten better but it depends on what she eats. States that she took her prep for her colonoscopy so she will need new prep sent! Viscose Department Worker Required: No Allergies No Known Allergies (No Known Allergies*) Allergy (Verified 03/29/25 08:31) HPI HPI throat burning eval caraate: Details: Assessment & Plan (1) Reich's esophagus: Comment: Schatzki ring EGD 05/2018: neg for SSBE 02/2020 EGD biopsy aeb also negative for metaplasia 05/2021 EGD no need for further surveillance endoscopies unless the patient becomes symptomatic Code(s): K22.70 - 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 Category: Medical (2) Family history of colon cancer in father: Comment: mother and father., 2019 scope:internal hemorrhoids, Repeat asymptomatic screening in this patient would be 5 years. I would recommend due to the difficulty of the colonoscopic procedure that she will not have endoscopies and colonoscopy scheduled on the same day. This adds to postprocedure distention etc,. Code(s): Z80.0 - Family history of malignant neoplasm of digestive organs Category: Medical (3) Pre-op examination: Code(s): Z01.818 - Encounter for other preprocedural examination Category: Medical Plan She continues on her Creon with good control of her bowels, her omeprazole with good control of her heartburn. The trial of Diflucan did not affect her upper throat sensation of pain. Because of this I think will do a trial of sucralfate since she does have a history of Barretts esophagus and erosive esophagitis. She is also due for both the colonoscopy and the Barretts esophagus surveillance so we will get these studies ordered as well. She denies any cardiac or respiratory problems. There are no prior problems with anesthesia or sedation. There are no infectious disease problems. Both of her parents had colorectal cancer. Return office visit in 6 weeks to evaluate the affects of the sucralfate. She will likely be using GoodRx since her insurance does not cover the liquid formation. Orders: Orders Complete Blood Count Auto Diff Today Z01.818 - Encounter for other preprocedural examination Comprehensive Met. Panel Today Z01.818 - Encounter for other preprocedural examination Referrals GI Procedure Notification K22.70 - 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, Z01.818 - Encounter for other preprocedural examination, Z80.0 - Family history of malignant neoplasm of digestive organs Medications: New sucralfate (Carafate) 10 mL PO BID 414 mL 0RF K22.70 - 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 peg 3350-electrolytes 236-22.74-6.74 -5.86 gram (Golytely) until fecal effluent is clear; do not exceed a total volume of 2,000 mL 240 mL PO Q10M 4,000 mL 0RF 1 day Z12.11 - Encounter for screening for malignant neoplasm of colon bisacodyl (Dulcolax (bisacodyl)) 10 mg (2 x 5 mg) PO BEDTIME 4 tabs 0RF 2 days Refilled omeprazole 40 mg PO DAILY 90 caps 2RF K21.00 - Gastro-esophageal reflux disease with esophagitis, without bleeding, K22.70 - 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 LABS: Laboratory Tests 03/23/25 14:53 WBC 6.6 RBC 3.69 L Hgb 10.9 L Hct 34.1 L MCV 92.4 MCH 29.5 Plt Count 280 Estimated GFR > 60 Total Bilirubin 0.2 AST 31 ALT 21 Alkaline Phosphatase 57 EGD/COLONOSCOPY BIOPSY TODAY'S VISIT [facility] Medical History (Updated 04/05/25 @ 09:07 by Carlyn Rodriguez PA-C) Acute pharyngitis Personal history of nicotine dependence Diarrhea Upper abdominal pain Constipation Anxiety Lung nodule, multiple HTN (hypertension) Reich's esophagus Hemorrhoids Hiatal hernia Hyperlipidemia Surgical History History of esophagogastroduodenoscopy (EGD) H/O colonoscopy Family History Father Colon cancer Mother Colon cancer Social History Housing: House Alcohol intake: never Patient Tobacco Use Status: Former Tobacco user e-Cigarette/Vaping Use: Never Used service: No Current occupational status: employed Cognitive needs: No Hearing needs: No Vision needs: Yes Review of Systems Const Denies fatigue, Denies fever(s), Denies night sweats, Denies poor appetite and Denies weight loss ENT Reports Normal hearing present, Denies dental pain, Denies dysphagia, Denies hearing loss, Denies mouth pain, Denies odynophagia, Denies throat swelling, Denies tongue swelling and Reports other (Dentition adequate) Card Reports no additional complaints Resp Reports no additional complaints GI Details: Reports abdominal pain, Denies melena, Denies bloating, Denies hematochezia, Denies constipation, Denies GI cramping, Denies dysphagia, Denies excessive flatus, Denies early satiety, Reports heartburn, Denies diarrhea, Reports loose stools, Denies nausea, Denies odynophagia, Denies vomiting and Denies hematemesis Skin/Breast Denies pruritus, Denies lesions, Denies rash and Denies jaundice Neuro Reports Normal hearing present and Denies Abnormal speech present Endo Denies fatigue Aller/Immun Denies throat swelling and Denies tongue swelling Physical Exam Vital Signs: Last Vital Signs Pulse 85 05/10/25 12:03 BP 140/63 H 05/10/25 12:03 BMI result Body Mass Index 24.5 Const General: cooperative, no acute distress, well developed and well groomed Nutritional Appearance: average body habitus and well nourished Orientation/consciousness: oriented to person, oriented to place and oriented to time Limitations: No language barrier HEENT Head: Yes normocephalic and Yes atraumatic Eyes General: appearance normal, both eyes and all related structures Pupils: Equal, round and reactive pupils present Neck Neck: Yes normal visual inspection and Yes no lymphadenopathy Thyroid: Thyroid normal Resp Effort & Inspection: normal respiratory effort and able to speak in complete sentences Auscultation: clear to auscultation bilaterally Cardio Rate: regular rate Rhythm: regular rhythm Heart sounds: Normal, physiologic split S2 sound present Peripheral pulses: radial pulses present and posterior tibial pulses present GI Inspection: No distended and No Abdominal panniculus present Palpation (GI): Soft to palpation, nontender, no guarding, not rigid and No hepatosplenomegaly present Percussion: Yes normal to percussion Auscultation: normal bowel sounds Rectal Exam - Female: deferred Skin General skin exam: no rashes or lesions noted, turgor normal, skin not dry, no jaundice, No spider nevi and no striae Rashes: no rashes Nails: normal Neuro General: oriented to person, oriented to place and oriented to time Cranial nerves: Yes Equal, round and reactive pupils present and Yes Normal hearing present Speech: No Abnormal speech present Extrem General: Yes normal to inspection, No clubbing, No cyanosis and No edema Psych Appearance: grossly normal and well kempt Mental Status: mental status grossly normal Speech and movement: Normal speech and movement present Affect: normal affect Attitude: cooperative Thought process: Normal thought process present and not confabulating Thought content: Normal thought content present Insight: Good insight present (Psych) Judgement: Good judgement present (Psych) Assessment & Plan Assessment & Plan (1) GERD with esophagitis: Comment: f/u with GI , Code(s): K21.00 - Gastro-esophageal reflux disease with esophagitis, without bleeding Category: Medical (2) Reich's esophagus: Comment: Sonia finley EGD 05/2018: neg for SSBE 02/2020 EGD biopsy aeb also negative for metaplasia 05/2021 EGD no need for further surveillance endoscopies unless the patient becomes symptomatic Code(s): K22.70 - 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 Category: Medical (3) Irritable bowel syndrome with diarrhea: Code(s): K58.0 - Irritable bowel syndrome with diarrhea Category: Medical (4) Sigmoid colon mucosal prolapse: Code(s): K63.4 - Enteroptosis Category: Medical (5) Family history of colon cancer in father: Comment: mother and father.2019 scope:internal hemorrhoids, Repeat asymptomatic screening in this patient would be 5 years. I would recommend due to the difficulty of the colonoscopic procedure that she will not have endoscopies and colonoscopy scheduled on the same day. This adds to postprocedure distention etc,. Code(s): Z80.0 - Family history of malignant neoplasm of digestive organs Category: Medical Plan She continues on her Creon with good control of her bowels, her omeprazole and at the last appointment we added sucralfate for her throat burning. - The patient is a 69-year-old female presenting with GERD for follow-up. - GERD symptoms, primarily a burning throat, have improved with Carafate. - Reich?s Esophagus diagnosis necessitates proactive treatment to prevent esophageal cancer. - Omeprazole has transitioned from twice to once daily, attributed to insurance limitations. - Sucralfate is beneficial for both GERD symptoms and associated diarrhea. - Endoscopic evaluation is anticipated on June 16, followed by a reassessment on June 28. EGD/COLONOSCOPY 06/16/2025 BIOPSY Medications: Changed From sucralfate (Carafate) 10 mL PO BID 414 mL 0RF K22.70 - 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 To sucralfate (Carafate) 10 mL PO BID 1,800 mL 0RF 90 days K22.70 - 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 Coding Level of Care Code Est Pt Level 3 (45435) Diagnoses GERD with esophagitis K21.00 Reich's esophagus K22.70 Irritable bowel syndrome with diarrhea K58.0 Sigmoid colon mucosal prolapse K63.4 Family history of colon cancer in father Z80.0
== END 2025-05-10 13:20 | disposition home or self-care (01) ==
LOC: HO.HGI 11:54
PROVIDERS: PCP Internal Medicine; Visit Provider Nurse Practitioner
DX: K21.00 Gastro-esophageal reflux disease with esophagitis, without bleeding (principal); K22.70 Barrett's esophagus without dysplasia; K58.0 Irritable bowel syndrome with diarrhea; K63.4 Enteroptosis; Z80.0 Family history of malignant neoplasm of digestive organs
CPT/HCPCS: 99213

== ENCOUNTER → 2025-05-10 11:53 | Outpatient (BNVA) | payer MEDICARE, SELFPAY | PROVIDERS: PCP Internal Medicine; Visit Provider Nurse Practitioner | DX: K21.00 Gastro-esophageal reflux disease with esophagitis, without bleeding (principal); K22.70 Barrett's esophagus without dysplasia; K58.0 Irritable bowel syndrome with diarrhea; K63.4 Enteroptosis; Z80.0 Family history of malignant neoplasm of digestive organs | CPT/HCPCS: 99212 ==

== ENCOUNTER 2025-06-16 11:22 | Day surgery (SDC) | payer MEDICARE, SELFPAY ==
--- OUTSIDE RECORDS SUMMARY | 2024-01-12 06:40 | XMS_ITS ---
Author Organization [facility] Address [address] [place] [phone] Care Team Providers Care Receptionist Clerk Name Role Phone Yosef LEVINE, Aspen Primary Care Provider Ze Almaguer Jr [phone] REASON FOR VISIT Patient presents today for barretts esophagus Encounters Encounter Location Date Provider Diagnosis [facility] [address] [facility] [address] [place] [phone] 01/12/2024 Ze Solorio Jr Plan Of Treatment No Information Progress Notes * PARTHA COLLAZO ADOB:[birth year] (69 yo F)Acc No.[id number]:01/12/2024 Progress Notes Patient: PARTHA HOLGUIN Provider: Ayse Solorio MD :1955 A ge:68 Y S ex:Female Date:01/12/2024 Address:[address] [place], [place] [phone] Pcp:Aspen Navas MD Subjective: * Chief Complaints: [...] 01/12/2024 Generated for Aliciai ng/Faradhag/eTransmitting on: 1 09:35 AM EDT
--- OUTSIDE RECORDS SUMMARY | 2025-04-04 05:00 | XMS_ITS ---
Author Organization [facility] Address [address] [place] [address] Care Team Providers Care Executive Personal Assistant Name Role Phone Yosef LEVINE, Aspen Primary Care Provider Ze Almaguer Jr REASON FOR VISIT Patient presents today for edward's Encounters Encounter Location Date Provider Diagnosis [facility] [address] [place] [address] 04/04/2025 Ze Solorio Jr Plan Of Treatment No Information Progress Notes * PARTHA COLLAZO ADOB:[birth year] (69 yo F)Acc No.[id number]:04/04/2025 Progress Notes Patient: PARTHA HOLGUIN Provider: Ayse Solorio MD :1955 A ge:69 Y S ex:Female Date:04/04/2025 Address:[address] [place], [place] [id number] Pcp:Aspen Navas MD Subjective: * Chief Complaints: * 1 . Patient presents today for edward's. * Medical History: Objective: * Vitals: Assessment: Plan: * Treatment: * * The named appointment provid er may or may not be the originator of this progress note, and it is not deemed complete until electronically signed by the appointment provider. Sign off status: Pending * Provider: Ayse Solorio MD Date: 0 04/04/2025 Generated for Printi ng/Faradhag/eTransmitting on: 1 09:35 AM EDT
--- OUTSIDE RECORDS SUMMARY | 2025-05-10 09:36 | XMS_ITS | Patient Health Record ---
Author Organization [facility] Address [address] [place] [address] Care Team Providers Care Telegraph Inspector Name Role Phone Aspen Navas MD Primary Care Provider Ze Almaguer Jr Allergies No Known Allergies Reason For Referral No Information Medications Medication SIG (Take, Route, Frequency, Duration) Notes Start Date End Date Status buPROPion HCl ER (SR) 150 MG Oral; Duration: 90 Active Omeprazole 40 MG TAKE 1 CAPSULE BY MO [facility] EVERY DAY Oral; Duration: 90 days Active Olmesartan Medoxomil 5 MG Oral; Duration: 90 Active Potassium Chloride ER 20 MEQ Oral; Duration: 90 Active Pravastatin Sodium 80 MG TAKE 1 TABLET B Y MOUTH EVERYDAY AT BEDTIME Oral; Duration: 90 Active Immunizations Vaccine Route Administration Date [...] Problem Status W/U Status Risk Notes Problem Colon cancer screening (467915357) Colon cancer screening (Z12.11) Active confirmed Problem Reich's esophagus (815754421) 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) Active confirmed Encounters Encounter Location Date Provider Diagnosis [facility] [address] [place] [address] 03/31/2025 Ze Solorio Jr Plan Of Treatment No Information Insurance Providers Payer Name Payer Address Payer Phone Subscriber Number Group Number Insured Name Patient Relationship to Insured Coverage Start Date Coverage End Date [facility] [address] [place], [place] [address] [phone] [id number] PARTHA COLLAZO Self - patient is the insured Medical (General) History Medical History History ICD Code high blood pressure high cholesterol depression Reich's esophagus, EGD 06/03, no intes tinal metaplasia, 3-5 year followup Colonoscopy 03/02, normal, five-year foll owup Surgical History Surgery Date(Month/Year)
--- NOTE | 2025-06-13 14:41 | P.CONAN_ITS ---
Documented by User: Ana Aleman NP 06/13/25 14:41 HPI - Anesthesia Eval Consult details Narrative: 69 yr old female for upper endoscopy, colonoscopy PMF Active Problems Active Problems: All Active Problems Acute pharyngitis (Acute) Personal history of nicotine dependence (Acute) Sigmoid colon mucosal prolapse (Acute) Osteoporosis (Acute) Anxiety (Acute) Vitamin D deficiency (Acute) Vitamin B 12 deficiency (Acute) Anemia (Acute) Postmenopausal (Acute) Shortness of breath (Acute) Irritable bowel syndrome with diarrhea (Acute) Family history of colon cancer in father (Acute) GERD with esophagitis (Acute) Hyperlipidemia (Acute) Lung nodule, multiple (Acute) Reich's esophagus (Acute) HTN (hypertension) (Acute) Past Medical History Medical History Acute pharyngitis Personal history of nicotine dependence Diarrhea Upper abdominal pain Constipation Anxiety Lung nodule, multiple HTN (hypertension) Reich's esophagus Hemorrhoids Hiatal hernia Hyperlipidemia Family History Family History Father Colon cancer Mother Colon cancer Family history of problems with anesthesia: No Surgical History Surgical History History of esophagogastroduodenoscopy (EGD) H/O colonoscopy History of Problems with Anesthesia: No Social History Social History Housing: House Are you a primary memory care program resident to a significant other at home: No Do you presently have visiting nurse or other home services: No Alcohol intake: never Patient Tobacco Use Status: Former Tobacco user e-Cigarette/Vaping Use: Never Used Have you been hit, kicked, punched, or otherwise hurt by someone within the past year? If so, by whom?: No Are you DNR?: No Advance Directives: No Advance Directives Information Provided: Yes service: No Current occupational status: employed Cognitive needs: No Hearing needs: No Vision needs: Yes Meds Allergies Allergy/AdvReac Type Severity Reaction Status Date / Time No Known Allergies (No Known Allergy Verified 06/16/25 11:48 Allergies*) Assessment and Plan Final Anesthetic Review Family History of Problems with Anesthesia: No History of Problems with Anesthesia: No Documented by User: Bassem Harmon MD 06/16/25 13:47 PMFSH Past Medical History Medical History Acute pharyngitis Personal history of nicotine dependence Diarrhea Upper abdominal pain Constipation Anxiety Lung nodule, multiple HTN (hypertension) Reich's esophagus Hemorrhoids Hiatal hernia Hyperlipidemia Functional capacity: independent ambulation Family History Family History Father Colon cancer Mother Colon cancer Surgical History Surgical History History of esophagogastroduodenoscopy (EGD) H/O colonoscopy Social History Social History Housing: House Are you a primary memory care program resident to a significant other at home: No Do you presently have visiting nurse or other home services: No Alcohol intake: never Patient Tobacco Use Status: Former Tobacco user e-Cigarette/Vaping Use: Never Used Have you been hit, kicked, punched, or otherwise hurt by someone within the past year? If so, by whom?: No Are you DNR?: No Advance Directives: No Advance Directives Information Provided: Yes service: No Current occupational status: employed Cognitive needs: No Hearing needs: No Vision needs: Yes Meds Allergies Allergy/AdvReac Type Severity Reaction Status Date / Time No Known Allergies (No Known Allergy Verified 06/16/25 11:48 Allergies*) Exam Exam Date and Time: 06/16/25 Airway TM Dist: >3cm Heart: rrr Lungs: cta Assessment and Plan Assessment Anesthesia Assessment: Anesthesia Plan Discussed and Chart Reviewed Final Anesthetic Review NPO: Yes ASA Class: II Final Preanesthetic Review: No Changes in Pt Med Stat, Meds/Allgs Chart Reviewed, Consent Obtained/Reviewed and Anes Risks/Benef Reviewed Patient Risk: Low Procedure Risk: Low
[2025-06-14 13:23] VITALS: BMI 24.4
[2025-06-16 11:47] VITALS: BMI 25.0
[2025-06-16] MEDS: Lactated Ringers 1,000 ML 100 ML IVCONT (11:52)
[2025-06-16 12:01] VITALS: BP 123/59; PULSE 75; RESP 18; TEMP 36.7; O2SAT 98
--- NOTE | 2025-06-16 13:42 | MHC.SHP ---
Pre-Procedural Eval Section A - 24 Hr Update-Section A only Date of Service: 06/16/25 Section B - Complete if H&P > 30 days Chief Complaint: 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 Details of Present Illness: Acute pharyngitis Personal history of nicotine dependence Diarrhea Upper abdominal pain Constipation Anxiety Lung nodule, multiple HTN (hypertension) Reich's esophagus Hemorrhoids Hiatal hernia Hyperlipidemia Surgical History History of esophagogastroduodenoscopy (EGD) H/O colonoscopy Family History Father Colon cancer Mother Colon cancer Present Medications: see Short Stay Collaborative assessment Allergies: Allergies Allergy/AdvReac Type Severity Reaction Status Date / Time No Known Allergies (No Known Allergy Verified 06/16/25 11:48 Allergies*) Review of Systems Review of Systems Comment: Ten point ROS negative Exam Exam Comment: Gen appear: No acute distress HEENT: no icterus Chest: No overt resp distress Abd: soft, nontender, nondistended Psych: Stable affect, answering questions appropriately Neuro: A/Ox3 noted to move all extremities spontaneously Ext: no peripheral edema Plan Diagnosis/Plan: Unchanged I have reviewed the history and physical and performed a pertinent physical examination on my patient. No changes have occurred unless specified. Time Spent With Patient Time: Total time managing care of this patient today ____ minutes.
[2025-06-16 14:38] VITALS: BP 90/47; PULSE 70; RESP 16; TEMP 36.8; O2SAT 97
[2025-06-16 14:45] VITALS: BP 92/48; PULSE 60; RESP 16; O2SAT 97
--- NOTE | 2025-06-16 14:54 | P.OPN-COLO_ITS ---
Colonoscopy Operative Note Operative Note Date of Service: 06/16/25 Narrative: Procedure: Upper endoscopy and colonoscopy Indication: GERD, fam hx of colon ca Endoscopist: Marlene Aguilar MD Anesthesia Provider: Dr Harmon Anesthesia type: MAC Instrument: [id number] and [id number] EGD Procedure:?? The procedure, indications, preparation and potential complications were reviewed with the patient, who indicated understanding and gave written informed consent to proceed. The endoscope was introduced through the mouth, and advanced to the 2nd part of the duodenum. The mucosa was carefully examined on slow withdrawal of the endoscope. The patient tolerated the procedure well. There were no immediate complications.? EGD Findings:? * Esophagus:? Normal esophageal mucosa was noted. The Z-line was at 32 cm with a diaphragmatic hernia wiht pinch at 35 cm. * Stomach:? Normal gastric mucosa. Too numerous to count polyps noted in the stomach fundus and body measuring 4-15 mm. Cold snare polypectomy was performed for the larger polyps. The polyps were completely removed and retrieved in a rescue net and sent for histology. Retroflexion was performed in the cardia that showed Hill grade III hiatal hernia. Random cold forceps biopsies were taken from the stomach. * Duodenum:? Normal duodenal mucosa. Cold forceps biopsies were taken from the duodenal bulb and 2nd portion of the duodenum to rule out celiac sprue. Colonoscopy Procedure:? The patient was then turned for the colonoscopy. An abdominal binder was placed in the lower abdomen. A digital rectal exam was performed which was normal.? A distal attachment cap was affixed to the tip of the scope and the colonoscope was then inserted through the anus and advanced through the colon and advanced to the cecum at 80 cm.? Appendiceal orifice and ileocecal valve were identified. Mucosa was carefully examined under high definition white light as the instrument was slowly withdrawn in a retrograde panoramic fashion. Retroflexion was performed in rectum. The procedure was not difficult. The quality of the prep was BBPS: 3+2+2 = adequate Withdrawal time 12 minutes Limitations: No limitations Findings: Mucosa: Normal colon mucosa. Protruding lesions: * Small internal hemorrhoids without stigmata of recent bleeding. Excavated lesions: * Moderate diverticulosis of left side of the colon noted. Impression: 1. Normal esophagus 2. Gastric polyps 3. Hiatal hernia 4. Normal duodenum (biopsy) 5. Normal colon mucosa 6. Diverticulosis 7. Internal hemorrhoids Recommendations:?? * Follow-up path results * Avoid NSAIDs * H Pylori treatment if biopsies + * If gastric polyps are hyperplastic, recommend repeat upper endoscopy for further removal of polyps. * Repeat colonoscopy for CRC screening in 5 years due to family history.
[2025-06-16 15:00] VITALS: BP 96/50; PULSE 62; RESP 16; O2SAT 97
== END 2025-06-16 15:30 | disposition home or self-care (01) ==
PROVIDERS: PCP Internal Medicine; Visit Provider Internal Medicine
PROC: (CPT 43239; principal; 2025-06-16 13:50)
DX: K22.70 Barrett's esophagus without dysplasia (principal); Z80.0 Family history of malignant neoplasm of digestive organs; K21.00 Gastro-esophageal reflux disease with esophagitis, without bleeding; K58.0 Irritable bowel syndrome with diarrhea; K63.4 Enteroptosis; K31.7 Polyp of stomach and duodenum; K64.8 Other hemorrhoids; K57.30 Diverticulosis of large intestine without perforation or abscess without bleeding; K44.9 Diaphragmatic hernia without obstruction or gangrene
CPT/HCPCS: 43239; G0121; 88305; 88313; 88342; J2003; J2704; J3010

== ENCOUNTER → 2025-06-16 11:22 | Outpatient (BNV) | payer MEDICARE, SELFPAY | PROVIDERS: PCP Internal Medicine; Visit Provider Internal Medicine | DX: Z12.11 Encounter for screening for malignant neoplasm of colon (principal); Z80.0 Family history of malignant neoplasm of digestive organs; K57.90 Diverticulosis of intestine, part unspecified, without perforation or abscess without bleeding; K64.8 Other hemorrhoids; K21.9 Gastro-esophageal reflux disease without esophagitis; K31.7 Polyp of stomach and duodenum | CPT/HCPCS: 43251; G0105 ==

== ENCOUNTER 2025-06-28 14:48 | Outpatient (AMB) | payer MEDICARE, SELFPAY ==
--- OUTSIDE RECORDS SUMMARY | 2024-01-12 05:40 | XMS_ITS ---
Author Organization [facility] Address [address] [place] [address] Care Team Providers Care Manager Java Name Role Phone Yosef LEVINE, Aspen Primary Care Provider Ze Almaguer Jr [phone] REASON FOR VISIT Patient presents today for barretts esophagus Encounters Encounter Location Date Provider Diagnosis [facility] [address] [place] [phone] 01/12/2024 Ze Solorio Jr Plan Of Treatment No Information Progress Notes * PARTHA COLLAZO ADOB:[birth year] (69 yo F)Acc No.[id number]:01/12/2024 Progress Notes Patient: PARTHA HOLGUIN Provider: Ayse Solorio MD :1955 A ge:68 Y S ex:Female Date:01/12/2024 Address:[address] [place], [place] [id number] Pcp:Aspen Navas MD Subjective: * Chief Complaints: * P atient presents today for barretts esophagus * The named appointment provid er may or may not be the originator of this progress note, and it is not deemed complete until electronically signed by the appointment provider. Sign off status: Pending * Provider: Ayse Solorio MD Date: 0 01/12/2024 Generated for Aliciai ng/Faradhag/eTransmitting on: 1 08/29/2024 07:07 PM EST
[2025-06-28 15:03] VITALS: BP 108/49; PULSE 82; BMI 25.8
--- NOTE | 2025-06-28 15:03 | A.OFFVIS_ITS ---
Vital Signs 06/28/25 15:03 Height 4 ft 11 in Weight 127 lb 13.89 oz BMI 25.8 BP 108/49 L Blood Pressure Location Lt brachial Position Sitting Pulse 82 Intake Visit Reasons: S/P colo and egd Intake Note: Arleen presents to in office follow up s/p EGD and colonoscopy. CC: Patient reports doing well and denies having any GI symptoms or concerns today. Skate Shop Attendant Required: No Accompanied by: Self / Same As Patient Allergies No Known Allergies (No Known Allergies*) Allergy (Verified 06/28/25 15:08) HPI HPI S/P colo and egd: Details: Assessment & Plan (1) GERD with esophagitis: Comment: f/u with GI , Code(s): K21.00 - Gastro-esophageal reflux disease with esophagitis, without bleeding Category: Medical (2) Reich's esophagus: Comment: Sonia finley EGD 05/2018: neg for SSBE 02/2020 EGD biopsy aeb also negative for metaplasia 05/2021 EGD no need for further surveillance endoscopies unless the patient becomes symptomatic Code(s): K22.70 - 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 Category: Medical (3) Irritable bowel syndrome with diarrhea: Code(s): K58.0 - Irritable bowel syndrome with diarrhea Category: Medical (4) Sigmoid colon mucosal prolapse: Code(s): K63.4 - Enteroptosis Category: Medical (5) Family history of colon cancer in father: Comment: mother and father., 2019 scope:internal hemorrhoids, Repeat asymptomatic sc reening in this patient would be 5 years. I would recommend due to the difficulty of the colonoscopic procedure that she will not have endoscopies and colonoscopy scheduled on the same day. This adds to postprocedure distention etc,. Code(s): Z80.0 - Family history of malignant neoplasm of digestive organs Category: Medical Plan She continues on her Creon with good control of her bowels, her omeprazole and at the last appointment we added sucralfate for her throat burning. - The patient is a 69-year-old female presenting with GERD for follow-up. - GERD symptoms, primarily a burning throat, have improved with Carafate. - Reich?s Esophagus diagnosis necessitates proactive treatment to prevent esophageal cancer. - Omeprazole has transitioned from twice to once daily, attributed to insurance limitations. - Sucralfate is beneficial for both GERD symptoms and associated diarrhea. - Endoscopic evaluation is anticipated on June 16, followed by a reassessment on June 28. Medications: Changed From sucralfate (Carafate) 10 mL PO BID 414 mL 0RF K22.70 - 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 To sucralfate (Carafate) 10 mL PO BID 1,800 mL 0RF 90 days K22.70 - 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 EGD/COLONOSCOPY EGD Findings:? * Esophagus:? Normal esophageal mucosa was noted. The Z-line was at 32 cm with a diaphragmatic hernia wiht pinch at 35 cm. * Stomach:? Normal gastric mucosa. Too numerous to count polyps noted in the stomach fundus and body measuring 4-15 mm. Cold snare polypectomy was performed for the larger polyps. The polyps were completely removed and retrieved in a rescue net and sent for histology. Retroflexion was performed in the cardia that showed Hill grade III hiatal hernia. Random cold forceps biopsies were taken from the stomach. * Duodenum:? Normal duodenal mucosa. Cold forceps biopsies were taken from the duodenal bulb and 2nd portion of the duodenum to rule out celiac sprue. * Findings: Mucosa: Normal colon mucosa. Protruding lesions: * Small internal hemorrhoids without stigmata of recent bleeding.Excavated lesions: * Moderate diverticulosis of left side of the colon noted. Impression: 1. Normal esophagus 2. Gastric polyps 3. Hiatal hernia 4. Normal duodenum (biopsy) 5. Normal colon mucosa 6. Diverticulosis 7. Internal hemorrhoids Recommendations:?? * Follow-up path results * Avoid NSAIDs * H Pylori treatment if biopsies + * If gastric polyps are hyperplastic, recommend repeat upper endoscopy for further removal of polyps. * Repeat colonoscopy for CRC screening in 5 years due to family history. BIOPSY Received: 06/17/25 Diagnosis A. Duodenum, biopsy: Duodenal mucosa within normal limits. B. Stomach, random, biopsy: Antral-type and oxyntic mucosa with moderate chronic, focally active, inflammation; no Helicobacter organisms seen. C. Stomach, polypectomy: Fundic gland polyp with background mild chronic inactive inflammation; no Helicobacter organisms seen. PFSH Medical History Acute pharyngitis Personal history of nicotine dependence Diarrhea Upper abdominal pain Constipation Anxiety Lung nodule, multiple HTN (hypertension) Reich's esophagus Hemorrhoids Hiatal hernia Hyperlipidemia Surgical History History of esophagogastroduodenoscopy (EGD) H/O colonoscopy Family History Father Colon cancer Mother Colon cancer Social History Housing: House Are you a primary critical care registered nurse to a significant other at home: No Do you presently have visiting nurse or other home services: No Alcohol intake: never Patient Tobacco Use Status: Former Tobacco user e-Cigarette/Vaping Use: Never Used service: No Current occupational status: employed Cognitive needs: No Hearing needs: No Vision needs: Yes Review of Systems Eyes Details: glasses ENT Reports Normal hearing present Neuro Reports Normal hearing present and Denies Abnormal speech present Physical Exam Vital Signs: Last Vital Signs Pulse 82 06/28/25 15:03 BP 108/49 L 06/28/25 15:03 BMI result Body Mass Index 25.8 Const General: cooperative, no acute distress, well developed and well groomed Nutritional Appearance: average body habitus and well nourished Orientation/consciousness: oriented to person, oriented to place and oriented to time Limitations: No language barrier HEENT Head: Yes normocephalic and Yes atraumatic Eyes General: appearance normal, both eyes and all related structures Pupils: Equal, round and reactive pupils present Neck Neck: Yes normal visual inspection and Yes no lymphadenopathy Thyroid: Thyroid normal Resp Effort & Inspection: normal respiratory effort and able to speak in complete sentences Auscultation: clear to auscultation bilaterally Cardio Rate: regular rate Rhythm: regular rhythm Heart sounds: Normal, physiologic split S2 sound present Peripheral pulses: radial pulses present and posterior tibial pulses present GI Inspection: No distended and No Abdominal panniculus present Palpation (GI): Soft to palpation, nontender, no guarding, not rigid and No hepatosplenomegaly present Percussion: Yes normal to percussion Auscultation: normal bowel sounds Rectal Exam - Female: deferred Skin General skin exam: no rashes or lesions noted, turgor normal, skin not dry, no jaundice, No spider nevi and no striae Rashes: no rashes Nails: normal Neuro General: oriented to person, oriented to place and oriented to time Cranial nerves: Yes Equal, round and reactive pupils present and Yes Normal hearing present Speech: No Abnormal speech present Extrem General: Yes normal to inspection, No clubbing, No cyanosis and No edema Psych Appearance: grossly normal and well kempt Mental Status: mental status grossly normal Speech and movement: Normal speech and movement present Affect: normal affect Attitude: cooperative Thought process: Normal thought process present and not confabulating Thought content: Normal thought content present Insight: Good insight present (Psych) Judgement: Good judgement present (Psych) Assessment & Plan Assessment & Plan (1) GERD with esophagitis: Comment: f/u with GI , Code(s): K21.00 - Gastro-esophageal reflux disease with esophagitis, without bleeding Category: Medical (2) Irritable bowel syndrome with diarrhea: Code(s): K58.0 - Irritable bowel syndrome with diarrhea Category: Medical Plan She continues on her Creon with good control of her bowels, her omeprazole and at the last appointment we added sucralfate for her throat burning. Subjective Post-procedure follow-up after recent upper endoscopy and colonoscopy. Patient reports ongoing intermittent dysphagia, noting difficulty swallowing and occasionally ?getting air down,? worsened with head flexed and improved when raising the head while swallowing. Denies choking. Reports improved bowel habits, now having daily bowel movements. Patient confirms taking sucralfate and omeprazole; had stopped Creon after running out and did not notice any worsening off of it. Patient inquired about the relationship between acid-suppressive therapy and gastric polyps. Relevant Past Medical, Social, and Family History Family history of colorectal cancer. Prior biopsies in 2018 negative for Reich?s esophagus; current discussion confirms no Reich?s on recent sampling. Objective - Upper endoscopy pathology: Gastric polyps benign. Focally active gastritis present. No Reich?s esophagus on biopsy. - Colonoscopy: No polyps. Internal hemorrhoids. Sigmoid diverticulosis. Assessment & Plan Focally active gastritis: Persistent gastric mucosal irritation on recent endoscopy. - Continue sucralfate long-term. - Continue omeprazole 40 mg once daily. Counseled that standard-dose PPI is less likely to drive gastric polyps; benefits for symptom control and esophageal protection outweigh risks at this dose. Benign gastric polyps: Pathology benign; no concerning features. - Reassurance provided; no specific intervention indicated beyond ongoing acid suppression as above. Dysphagia, likely age-related esophageal dysmotility (presbyesophagus) discussed: Intermittent positional dysphagia without choking; improved with head elevation. - Conservative measures: eat slowly, take smaller bites, chew thoroughly, keep head elevated while swallowing. - Monitor symptoms; no invasive intervention planned at this time. Return sooner if progression or red flags develop (e.g., choking, food impactions, weight loss). Hemorrhoids: Intermittent, uncomplicated. - Reassurance; expectant management. Diverticulosis: Incidental finding. - Reassurance; routine care. Pancreatic enzyme therapy (Creon), previously prescribed: Patient stopped; no worsening off therapy. - Discontinue Creon. Colorectal cancer screening with family history: Recent colonoscopy without polyps. - Repeat colonoscopy in 5 years due to family history. Reich?s esophagus, clarified history: Prior and current biopsies negative. - Continue PPI therapy as above to maintain mucosal protection; no immediate need for surveillance EGD absent new symptoms. Follow-up: Return in 6 months, or sooner for worsening dysphagia or alarm symptoms. Coding Level of Care Code Est Pt Level 3 (84253) Diagnoses GERD with esophagitis K21.00 Irritable bowel syndrome with diarrhea K58.0
--- OUTSIDE RECORDS SUMMARY | 2025-06-28 19:08 | XMS_ITS | Patient Health Record ---
Author Organization [facility] Address [address] [place] [id number] Care Team Providers Care Vending Machine Filler Name Role Phone Aspen Navas MD Primary Care Provider Ze Almaguer Jr Unavailable Allergies No Known Allergies Reason For Referral No Information Medications Medication SIG (Take, Route, Frequency, Duration) Notes Start Date End Date Status buPROPion HCl ER (SR) 150 MG Tablet Extended Release 12 Hour Oral; Duration: 90 Active Omeprazole 40 MG Capsule Delayed Release TAKE 1 CAPSULE BY MOUTH EVERY DAY Oral; Duration: 90 days Active Olmesartan Medoxomil 5 MG Tablet Oral; Duration: 90 Active Potassium Chloride ER 20 MEQ Tablet Extended Release Oral; Duration: 90 Active Pravastatin Sodium 80 MG Tablet TAKE 1 TABLET BY MOUTH EVERYDAY AT BEDTIME Oral; Duration: 90 Active Immunizations Vaccine Route Administration Date Status Comme nts Influenza Unknown 03/16/2024 Administered Social History Tobacco Use: Social History Observation Description Date Details (start date - stop date) Former Smoker NA - NA Social History Drugs/Alcohol: Social Info Question Answer Notes Alcohol Screen Did you have a drink containing alcohol in the past year? 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) Active confirmed Encounters Encounter Location Date Provider Diagnosis [facility] [address] [place] [address] 03/31/2025 Ze Solorio Jr Plan Of Treatment No Information Insurance Providers Payer Name Payer Address Payer Phone Subscriber Number Group Number Insured Name Patient Relationship to Insured Coverage Start Date Coverage End Date [facility] [address] [place] [address] [phone] [id number] PARTHA COLLAZO Self - patient is the insured Medical (General) History Medical History History ICD Code high blood pressure high cholesterol depression Reich's esophagus, EGD 06/03, no intes tinal metaplasia, 3-5 year followup Colonoscopy 03/02, normal, five-year foll owup Surgical History Surgery Date(Month/Year)
== END 2025-06-28 16:00 | disposition home or self-care (01) ==
LOC: HO.HGI 14:48
PROVIDERS: PCP Internal Medicine; Visit Provider Nurse Practitioner
DX: K21.00 Gastro-esophageal reflux disease with esophagitis, without bleeding (principal); K58.0 Irritable bowel syndrome with diarrhea
CPT/HCPCS: 99213

== ENCOUNTER → 2025-06-28 14:48 | Outpatient (BNVA) | payer MEDICARE, SELFPAY | PROVIDERS: PCP Internal Medicine; Visit Provider Nurse Practitioner | DX: K21.00 Gastro-esophageal reflux disease with esophagitis, without bleeding (principal); K22.70 Barrett's esophagus without dysplasia; K58.0 Irritable bowel syndrome with diarrhea; K63.4 Enteroptosis; Z80.8 Family history of malignant neoplasm of other organs or systems | CPT/HCPCS: 99212 ==

== ENCOUNTER 2025-07-01 15:34 | Outpatient (REF) | payer MEDICARE, SELFPAY ==
--- OUTSIDE RECORDS SUMMARY | 2024-01-12 05:40 | XMS_ITS ---
Author Organization [facility] Address [address] [place] [phone] Care Team Providers Care Painter Spring Name Role Phone Yosef LEVINE, Aspen Primary Care Provider Ze Almaguer Jr REASON FOR VISIT Patient presents today for barretts esophagus Encounters Encounter Location Date Provider Diagnosis [facility] [address] [place] [phone] 01/12/2024 Ze Solorio Jr Plan Of Treatment No Information Progress Notes * PARTHA COLLAZO ADOB:[birth year] (69 yo F)Acc No.[id number]:01/12/2024 Progress Notes Patient: PARTHA HOLGUIN Provider: Ayse Solorio MD :1955 A ge:68 Y S ex:Female Date:01/12/2024 Address:[address] [place], [place] [id number] Pcp:Aspen Navas MD Subjective: * Chief Complaints: * P atient presents today for barretts esophagus * The named appointment provid er may or may not be the originator of this progress note, and it is not deemed complete until electronically signed by the appointment provider. Sign off status: Pending * Provider: Ayse Solorio MD Date: 0 01/12/2024 Generated for Aliciai ng/Faradhag/eTransmitting on: 1 09/01/2024 04:34 PM EST
--- NOTE | ~2025-07-01 | CT_ITS ---
EXAMINATION: CT LOW-DOSE SCREENING CHEST WITHOUT CONTRAST CLINICAL INFORMATION: 69-year-old female, former smoker, quit 9 years ago, 30 pack years. Lung cancer screening. COMPARISON: 05/17/[address] low-dose [address] CT. TECHNIQUE: Multidetector volumetric CT imaging of the chest is performed on a Siemens SOMATOM Definition scanner without contrast using low dose technique. Additional 2D coronal and sagittal reformatted images and axial 3D maximum intensity projection (MIP) images are generated on the CT workstation. This CT examination was performed using dose optimization techniques as appropriate, variously including the following: *Automated exposure control *Adjustment of mA and/or kV according to patient size (this includes techniques or standardized protocols for targeted exams where dose is matched to indication/reason for exam; i.e. extremities or head) *Use of iterative reconstruction technique FINDINGS: PULMONARY NODULES: 3 mm subpleural nodule left upper lobe anteriorly (4, image 25) unchanged. Nodular area of bandlike pleural scarring in the right lower lobe (series 4, image 98), unchanged. 2 mm subpleural nodule lateral left upper lobe (4, image 31), unchanged. 3 mm groundglass nodule left upper lobe centrally (4, image 62), unchanged. No new or enlarging pulmonary nodule. LUNGS: Lungs are symmetrically expanded. There is mild centrilobular emphysema, unchanged. Small airways appear normal. No significant thickening. Minimal scarring seen in the medial left lower lobe, unchanged. Central airways appear normal. There is no effusion or pneumothorax. MEDIASTINUM: Normal-appearing thyroid. There is no mediastinal lymphadenopathy or mass. The aorta is normal in caliber with mild atheromatous calcification. There is no aneurysm. The pulmonary trunk is normal in size. The heart size is normal. There is no pericardial effusion. Esophagus is unremarkable. CORONARY ARTERY CALCIFICATION: Mild. CHEST WALL/AXILLA: There are no masses or abnormal lymph nodes present. UPPER ABDOMEN: Imaged upper abdominal contents appear normal within the confines of noncontrast, low dose technique. OSSEOUS STRUCTURES: There is no suspicious lytic or blastic bone lesion. There are mild degenerative spinal changes. CT/CT lung screening IMPRESSION: 1. There are a few scattered pulmonary nodules measuring up to 3 mm, without change. There are no new or enlarging pulmonary nodules present. 2. There is mild centrilobular emphysema, unchanged. There is no active lung disease. Previously seen small airway thickening is not appreciated on today's exam. ASSESSMENT: 1. Lung-RADS Category 2: Benign appearance or behavior of nodules. 2. Lung-RADS Category S: None. RECOMMENDATION: Continued routine annual low-dose CT lung screening in 1 year is recommended. An order for CT CHEST LOW DOSE CANCER SCREENING ([id number]) can be placed. Electronically signed by: Carlos Eduardo Robledo MD 07/01/2025 04:09 PM [facility]
--- OUTSIDE RECORDS SUMMARY | 2025-07-01 16:35 | XMS_ITS | Patient Health Record ---
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) Active confirmed Encounters Encounter Location Date Provider Diagnosis [facility] [address] [place] [address] 03/31/2025 Ze Solorio Jr Plan Of Treatment No Information Insurance Providers Payer Name Payer Address Payer Phone Subscriber Number Group Number Insured Name Patient Relationship to Insured Coverage Start Date Coverage End Date [facility] [address] [place] [address] [id number] PARTHA COLLAZO Self - patient is the insured Medical (General) History Medical History History ICD Code high blood pressure high cholesterol depression Reich's esophagus, EGD 06/03, no intes tinal metaplasia, 3-5 year followup Colonoscopy 03/02, normal, five-year foll owup Surgical History Surgery Date(Month/Year)
== END 2025-07-01 15:35 | disposition home or self-care (01) ==
LOC: HO.CT 15:34
PROVIDERS: PCP Internal Medicine; Visit Provider Physician Assistant Medical
DX: Z87.891 Personal history of nicotine dependence (principal)
CPT/HCPCS: 71271

== ENCOUNTER → 2025-07-01 15:36 | Outpatient (BNV) | payer MEDICARE, SELFPAY | PROVIDERS: PCP Internal Medicine; Visit Provider Radiology Diagnostic Radiology | DX: Z87.891 Personal history of nicotine dependence (principal) | CPT/HCPCS: 71271 ==